=== PATIENT | male | born 1985 | race Caucasian/White ===

== ENCOUNTER 2018-03-31 09:39 | Emergency (ER) | payer OTHER ==
[2018-03-31 10:49] LABS: Bicarbonate 27 mEq/L (21-31); Glucose Level 92 mg/dL (65-120); Potassium 4.2 mEq/L (3.6-5.0); Sodium Level 137 mEq/L (135-145)
[2018-03-31 10:53] LABS: Absolute Lymphocytes (CBC) 2.1 K/uL (0.7-4.9); Absolute Monocytes 0.6 K/uL (0.1-1.3); Absolute Neutrophil 5.4 K/uL (1.8-8.0); Basophils % 0.3 % (0-1.3); Eosinophils % 3.1 % (0-4.4); Hematocrit 44.8 % (39.6-49.0); Lymphocytes % 24.6 % (15.3-44.8); MCH 29.3 pg (27.0-35.0); MCV 85.6 fL (80-100); MPV 8.3 fL (7.6-11.3); Monocytes % 7.6 % (3.3-12.3); RBC Red Blood Cell Count 5.23 M/uL (4.33-5.43)
[2018-03-31 10:58] LABS: BUN Blood Urea Nitrogen 6 mg/dL (6-20); Uric Acid 7.7 mg/dL (4.8-8.7)
[2018-03-31 11:04] LABS: C-Reactive Protein < 5.0 mg/L (<10.0)
--- NOTE | 2018-03-31 11:16 | RAD REPORT ---
EXAM DESCRIPTION: RAD - Knee Left 3 View - 03/31/2018 10:54 am CLINICAL HISTORY: Left knee pain COMPARISON: None. FINDINGS: No fracture, dislocation or periosteal reaction.A small joint effusion is likely present. No joint space narrowing. No soft tissue abnormality. Clinical concerns for internal derangement or occult bony injury could be further assessed with MR im aging. IMPRESSION: Small joint effusion suspected.
--- NOTE | 2018-03-31 11:25 | ER ---
Nurse's Notes [facility] Name: Zuhair Hawthorne Age: 33 yrs Sex: Male : 1985 Arrival Date: 03/31/2018 Time: 09:43 Bed 10 Private MD: None, None Diagnosis: Pain in left knee Presentation: 03/31 10:08 Presenting complaint: Patient states: has had left knee pain X 2.5 weeks, denies iw injury, states it feels swollen, has hx of torn ligament in that knee, pain is throbbing. Transition of care: patient was not received from another setting of care. Onset of symptoms was March 26, 2018. Risk Assessment: Do you want to hurt yourself or someone else? Patient reports no desire to harm self or others. Initial Sepsis Screen: Does the patient meet any 2 criteria? No. Patient's initial sepsis screen is negative. Does the patient have a suspected source of infection? No. Patient's initial sepsis screen is negative. Care prior to arrival: None. 10:08 Method Of Arrival: Ambulatory iw 10:08 Acuity: BRIE 4 iw Triage Assessment: 11:39 General: Appears in no apparent distress. Behavior is calm, cooperative. iw Historical: - Allergies: 10:11 Codeine; iw - Home Meds: 10:11 carvedilol 6.25 mg oral tab [Active]; pravastatin oral oral [Active]; Omeprazole Oral iw [Active]; - PMHx: 10:11 Hypertension; Hyperlipidemia; iw - PSHx: 10:11 Vasectomy; iw - Immunization history:: Adult Immunizations up to date. - Social history:: Smoking status: Patient uses tobacco products, smokes one-half pack cigarettes per day. - Ebola Screening: : Patient negative for fever greater than or equal to 101.5 degrees Fahrenheit, and additional compatible Ebola Virus Disease symptoms Patient denies exposure to infectious person Patient denies travel to an Ebola-affected area in the 21 days before illness onset No symptoms or risks identified at this time. Screenin:30 Abuse screen: Denies threats or abuse. Denies injuries from another. Nutritional iw screening: No deficits noted. Tuberculosis screening: No symptoms or risk factors identified. Fall Risk None identified. Assessment: 10:15 General: Appears in no apparent distress. Behavior is calm, cooperative. Pain: iw Complains of pain in left knee Pain currently is 8 out of 10 on a pain scale. Neuro: Level of Consciousness is awake, alert, obeys commands, Oriented to person, place, time, situation, Moves all extremities. Cardiovascular: Patient's skin is warm and dry. Respiratory: Respiratory effort is even, unlabored, Respiratory pattern is regular, symmetrical. GI: No deficits noted. No signs and/or symptoms were reported involving the gastrointestinal system. Derm: Skin is pink, warm \T\ dry. normal. Musculoskeletal: Range of motion: limited in left knee. Vital Signs: 10:11 BP 122 / 81; Pulse 80; Resp 18; Temp 98.3; Pulse Ox 98% on R/A; Weight 90.72 kg; Height iw 5 ft. 10 in. (177.80 cm); Pain 5/10; 10:11 Body Mass Index 28.70 (90.72 kg, 177.80 cm) iw ED Course: 09:43 Patient arrived in ED. mr 09:43 None, None is Private Physician. mr 09:48 Lorri Stone FNP-C is [facility]. kb 09:48 Yossi Ojeda MD is Attending Physician. kb 10:02 Mai Irene, RN is Primary Nurse. iw 10:10 Triage completed. iw 10:11 Arm band placed on. iw 10:15 Patient has correct armband on for positive identification. iw 10:31 Initial lab(s) drawn, by me, sent to lab. Inserted saline lock: 20 gauge in right iw antecubital area, using aseptic technique. Blood collected. 10:50 X-ray completed. Portable x-ray completed in exam room. Patient tolerated procedure ml well. 10:52 Knee Left 3 View XRAY In Process Unspecified. EDMS 11:39 No provider procedures requiring assistance completed. Patient did not have IV access iw during this emergency room visit. Administered Medications: No medications were administered Outcome: 11:25 Discharge ordered by . kb 11:39 Discharged to home ambulatory. iw 11:39 Condition: good 11:39 Discharge instructions given to patient, Instructed on discharge instructions, follow up and referral plans. Demonstrated understanding of instructions, follow-up care. 11:40 Patient left the ED. iw Signatures: Dispatcher [employer] EDMS Lorri Stone FNP-C FNP-So [place] mr Mai Irene, RN RN iw Pedro Luis, Ana ml
--- NOTE | 2018-03-31 11:26 | EDPHYS ---
Physician Documentation [facility] Name: Zuhair Hawthorne Age: 33 yrs Sex: Male : 1985 Arrival Date: 03/31/2018 Time: 09:43 Bed 10 Private MD: None, None ED Physician Yossi Ojeda HPI: 03/31 11:21 This 33 yrs old Male presents to ER via Ambulatory with complaints of Knee kb Pain. 11:21 The patient presents with pain, swelling, tenderness. The complaints affect the left kb knee. Context: The problem was sustained at home, resulted from an unknown cause, the patient can fully bear weight, the patient is able to ambulate, Problem is a result from a previous injury: Yes. Onset: The symptoms/episode began/occurred 2.5 week(s) ago. Modifying factors: The symptoms are alleviated by nothing. the symptoms are aggravated by nothing. Associated signs and symptoms: Pertinent positives: swelling, Pertinent negatives calf tenderness, fever, nausea, numbness, rash, tingling, vomiting, warmth, weakness. Treatment prior to arrival includes: no previous treatment. Severity of symptoms: At their worst the symptoms were mild, in the emergency department the symptoms are unchanged. The patient has not experienced similar symptoms in the past. The patient has not recently seen a physician. Pt states he has had left knee pain for 2.5 weeks. Cannot remember injuring knee. States he thought it was a ligament, but now he is unsure because he looked on google and thinks it could be infected. Came to make sure he didn't have an infected joint. Historical: - Allergies: 10:11 Codeine; iw - Home Meds: 10:11 carvedilol 6.25 mg oral tab [Active]; pravastatin oral oral [Active]; Omeprazole Oral iw [Active]; - PMHx: 10:11 Hypertension; Hyperlipidemia; iw - PSHx: 10:11 Vasectomy; iw - Immunization history:: Adult Immunizations up to date. - Social history:: Smoking status: Patient uses tobacco products, smokes one-half pack cigarettes per day. - Ebola Screening: : Patient negative for fever greater than or equal to 101.5 degrees Fahrenheit, and additional compatible Ebola Virus Disease symptoms Patient denies exposure to infectious person Patient denies travel to an Ebola-affected area in the 21 days before illness onset No symptoms or risks identified at this time. ROS: 11:20 Constitutional: Negative for fever, chills, and weight loss, Cardiovascular: Negative kb for chest pain, palpitations, and edema, Respiratory: Negative for shortness of breath, cough, wheezing, and pleuritic chest pain, Abdomen/GI: Negative for abdominal pain, nausea, vomiting, diarrhea, and constipation, Skin: Negative for injury, rash, and discoloration, Neuro: Negative for headache, weakness, numbness, tingling, and seizure. 11:20 MS/extremity: Positive for pain, swelling, tenderness, of the left knee. Exam: 11:20 Constitutional: This is a well developed, well nourished patient who is awake, alert, kb and in no acute distress. Head/Face: Normocephalic, atraumatic. Chest/axilla: Normal chest wall appearance and motion. Nontender with no deformity. No lesions are appreciated. Cardiovascular: Regular rate and rhythm with a normal S1 and S2. No gallops, murmurs, or rubs. Normal PMI, no JVD. No pulse deficits. Respiratory: Lungs have equal breath sounds bilaterally, clear to auscultation and percussion. No rales, rhonchi or wheezes noted. No increased work of breathing, no retractions or nasal flaring. Abdomen/GI: Soft, non-tender, with normal bowel sounds. No distension or tympany. No guarding or rebound. No evidence of tenderness throughout. Skin: Warm, dry with normal turgor. Normal color with no rashes, no lesions, and no evidence of cellulitis. Neuro: Awake and alert, GCS 15, oriented to person, place, time, and situation. Cranial nerves II-XII grossly intact. Motor strength 5/5 in all extremities. Sensory grossly intact. Cerebellar exam normal. Normal gait. 11:20 Musculoskeletal/extremity: Extremities: grossly normal except: noted in the left knee: pain, swelling, tenderness, ROM: intact in all extremities, Circulation is intact in all extremities. Sensation intact. Weight bearing: able to fully bear weight. Vital Signs: 10:11 BP 122 / 81; Pulse 80; Resp 18; Temp 98.3; Pulse Ox 98% on R/A; Weight 90.72 kg; Height iw 5 ft. 10 in. (177.80 cm); Pain 5/10; 10:11 Body Mass Index 28.70 (90.72 kg, 177.80 cm) iw MDM: 10:02 Patient medically screened. kb 11:20 Data reviewed: vital signs, nurses notes. Data interpreted: Pulse oximetry: on room air kb is 98 %. Interpretation: normal. Counseling: I had a detailed discussion with the patient and/or guardian regarding: the historical points, exam findings, and any diagnostic results supporting the discharge/admit diagnosis, lab results, radiology results, the need for outpatient follow up, a orthopedic surgeon, to return to the emergency department if symptoms worsen or persist or if there are any questions or concerns that arise at home. 03/31 10:15 Order name: CBC with Diff; Complete Time: 11:07 kb 03/31 10:15 Order name: Basic Metabolic Panel; Complete Time: 11:04 kb 03/31 10:15 Order name: Knee Left 3 View XRAY; Complete Time: 11:17 kb 03/31 10:15 Order name: CRP; Complete Time: 11:04 kb 03/31 10:15 Order name: ESR; Complete Time: 11:07 kb 03/31 10:15 Order name: Uric Acid; Complete Time: 11:04 kb 03/31 10:15 Order name: IV Start; Complete Time: 10:31 kb Administered Medications: No medications were administered Disposition: 03/31/18 11:25 Discharged to Home. Impression: Pain in left knee. - Condition is Stable. - Discharge Instructions: Knee Effusion, [id number], Knee Pain, [id number]. - Medication Reconciliation Form, Thank You Letter, Antibiotic Education, Prescription Opioid Use form. - Follow up: Emergency Department; When: As needed; Reason: Worsening of condition. Follow up: Private Physician; When: 2 - 3 days; Reason: Recheck today's complaints, Continuance of care, Re-evaluation by your physician. Addendum: 04/04/2018 08:45 Co-signature as Attending Physician, Yossi Ojeda MD I agree with the assessment and c goodman plan of care. Signatures: Dispatcher [employer] Lorri Capellan, BUCKY-Jailyn LAWLER-Yossi Alfonso MD MD cha Williams, Irene, RN RN iw Corrections: (The following items were deleted from the chart) 05/25 11:40 11:25 03/31/2018 11:25 Discharged to Home. Impression: Pain in left knee. Condition is iw Stable. Forms are Medication Reconciliation Form, Thank You Letter, Antibiotic Education, Prescription Opioid Use. Follow up: Emergency Department; When: As needed; Reason: Worsening of condition. Follow up: Private Physician; When: 2 - 3 days; Reason: Recheck today's complaints, Continuance of care, Re-evaluation by your physician. kb
[2018-03-31 11:48] VITALS: BP 122/81; TEMP 98.3; O2SAT 98
== END 2018-03-31 11:40 | disposition home or self-care (01) ==
LOC: ER 09:39
DX: M25.562 Pain in left knee (principal); F17.210 Nicotine dependence, cigarettes, uncomplicated; I10 Essential (primary) hypertension; E78.5 Hyperlipidemia, unspecified; Z88.5 Allergy status to narcotic agent
CPT/HCPCS: 36415; 80048; 84550; 85025; 85652; 86140; 99283

== ENCOUNTER 2018-04-28 17:35 | Emergency (ER) | payer OTHER ==
[2018-04-28] MEDS ORDERED: METOCLOPRAMIDE 10 MG/2mL INJ ONE (19:10)
[2018-04-28] MEDS ORDERED: DEXAMETHASONE 10 MG/ML VIAL ONE (19:10)
[2018-04-28] MEDS ORDERED: DIPHENHYDRAMINE 50 MG/ML VIAL ONE (19:11)
--- NOTE | 2018-04-28 19:37 | RAD REPORT ---
EXAM DESCRIPTION: CT - Head Brain Wo Cont - 04/28/2018 7:30 pm CLINICAL HISTORY: Pain;Mental status change Severe headache. COMPARISON: HEAD BRAIN W O CONTRAST dated 06/03/2010 TECHNIQUE: All CT scans are performed using dose optimization technique as appropriate and may inclu de automated exposure control or mA/KV adjustment according to patient size. FINDINGS: No intracranial hemorrhage, hydrocephalus or extra-axial fluid collection.No areas of brai n edema or evidence of midline shift. The paranasal sinuses and mastoids are clear. The calvarium is intact. IMPRESSION: No acute intracranial abnormality.
[2018-04-28 19:43] LABS: Absolute Lymphocytes (CBC) 3.4 K/uL (0.7-4.9); Absolute Monocytes 0.9 K/uL (0.1-1.3); Absolute Neutrophil 5.5 K/uL (1.8-8.0); Basophils % 0.3 % (0-1.3); Hematocrit 44.9 % (39.6-49.0); Lymphocytes % 32.9 % (15.3-44.8); MCH 29.8 pg (27.0-35.0); MCV 85.3 fL (80-100); Monocytes % 8.7 % (3.3-12.3); RBC Red Blood Cell Count 5.26 M/uL (4.33-5.43)
[2018-04-28 19:57] LABS: BUN Blood Urea Nitrogen 9 mg/dL (7-18); Bicarbonate 31 mmol/L (21-32); Glucose Level 82 mg/dL (74-106); Potassium 3.8 mmol/L (3.5-5.1); Sodium Level 138 mmol/L (136-145)
--- NOTE | 2018-04-28 20:11 | EDPHYS ---
Physician Documentation [facility] Name: Zuhair Hawthorne Age: 33 yrs Sex: Male : 1985 Arrival Date: 04/28/2018 Time: 17:37 Bed 8 Private MD: Salina Noriega ED Physician Michael Angeles HPI: 04/28 21:04 This 33 yrs old Male presents to ER via Ambulatory with complaints of jr8 Headache. 21:04 The patient complains of pain to the left pentecostal. The patient describes the headache as jr8 throbbing. Onset: The symptoms/episode began/occurred acutely, today. Associated signs and symptoms: Pertinent positives: Photophobia blurred vision. Severity of symptoms: At its worst the pain was moderate, in the emergency department the pain is unchanged. Headache History: The patient has had previous headaches and this one is different than previous episodes. The symptoms are alleviated by nothing. the symptoms are aggravated by lights. The patient has not experienced similar symptoms in the past. The patient has not recently seen a physician. Historical: - Allergies: 18:01 Codeine; iw - Home Meds: 18:01 carvedilol 6.25 mg Oral Tb24 [Active]; Omeprazole Oral [Active]; pravastatin Oral iw [Active]; - PMHx: 18:01 Hyperlipidemia; Hypertension; iw 18:02 Migraines; iw - PSHx: 18:01 Vasectomy; iw - Immunization history:: Adult Immunizations up to date. - Social history:: Smoking status: Patient uses tobacco products, smokes one-half pack cigarettes per day. - Ebola Screening: : No symptoms or risks identified at this time. ROS: 21:04 Eyes: Negative for injury, pain, redness, and discharge, ENT: Negative for injury, jr8 pain, and discharge, Neck: Negative for injury, pain, and swelling, Cardiovascular: Negative for chest pain, palpitations, and edema, Respiratory: Negative for shortness of breath, cough, wheezing, and pleuritic chest pain, Abdomen/GI: Negative for abdominal pain, nausea, vomiting, diarrhea, and constipation, Back: Negative for injury and pain, MS/Extremity: Negative for injury and deformity, Skin: Negative for injury, rash, and discoloration. 21:04 Neuro: Positive for headache, Negative for altered mental status, dizziness, gait disturbance, hearing loss, loss of consciousness, numbness, seizure activity, speech changes, syncope, near syncope, tingling, tinnitus, tremor, visual changes, weakness. Exam: 21:04 Head/Face: Normocephalic, atraumatic. Eyes: Pupils equal round and reactive to light, jr8 extra-ocular motions intact. Lids and lashes normal. Conjunctiva and sclera are non-icteric and not injected. Cornea within normal limits. Periorbital areas with no swelling, redness, or edema. ENT: Nares patent. No nasal discharge, no septal abnormalities noted. Tympanic membranes are normal and external auditory canals are clear. Oropharynx with no redness, swelling, or masses, exudates, or evidence of obstruction, uvula midline. Mucous membranes moist. Neck: Trachea midline, no thyromegaly or masses palpated, and no cervical lymphadenopathy. Supple, full range of motion without nuchal rigidity, or vertebral point tenderness. No Meningismus. Cardiovascular: Regular rate and rhythm with a normal S1 and S2. No gallops, murmurs, or rubs. Normal PMI, no JVD. No pulse deficits. Respiratory: Lungs have equal breath sounds bilaterally, clear to auscultation and percussion. No rales, rhonchi or wheezes noted. No increased work of breathing, no retractions or nasal flaring. Abdomen/GI: Soft, non-tender, with normal bowel sounds. No distension or tympany. No guarding or rebound. No evidence of tenderness throughout. Back: No spinal tenderness. No costovertebral tenderness. Full range of motion. Skin: Warm, dry with normal turgor. Normal color with no rashes, no lesions, and no evidence of cellulitis. MS/ Extremity: Pulses equal, no cyanosis. Neurovascular intact. Full, normal range of motion. Neuro: Awake and alert, GCS 15, oriented to person, place, time, and situation. Cranial nerves II-XII grossly intact. Motor strength 5/5 in all extremities. Sensory grossly intact. Cerebellar exam normal. Normal gait. Vital Signs: 18:01 BP 127 / 83; Pulse 82; Resp 18; Pulse Ox 99% ; Weight 86.18 kg; Height 5 ft. 10 in. iw (177.80 cm); Pain 6/10; 18:11 BP 123 / 93; Pulse 71; Resp 18; Pulse Ox 99% on R/A; hj 19:16 BP 123 / 86; Pulse 69; Resp 16; Pulse Ox 98% on R/A; rv 20:05 BP 110 / 77; Pulse 74; Resp 18; Pulse Ox 99% on R/A; mt 18:01 Body Mass Index 27.26 (86.18 kg, 177.80 cm) iw MDM: 18:34 Patient medically screened. jr8 20:08 Data reviewed: vital signs, nurses notes, lab test result(s), radiologic studies, CT jr8 scan, and as a result, I will discharge patient. Data interpreted: Pulse oximetry: on room air is 99 %. Interpretation: normal. Counseling: I had a detailed discussion with the patient and/or guardian regarding: the historical points, exam findings, and any diagnostic results supporting the discharge/admit diagnosis, lab results, radiology results, the need for outpatient follow up, a neurologist, to return to the emergency department if symptoms worsen or persist or if there are any questions or concerns that arise at home. Response to treatment: the patient's symptoms have markedly improved after treatment. 04/28 18:55 Order name: CBC with Diff; Complete Time: 20:06 jr8 04/28 18:55 Order name: Basic Metabolic Panel; Complete Time: 20: jr8 04/28 18:55 Order name: CT Head Brain wo Cont; Complete Time: 20: jr8 04/28 18:55 Order name: IV; Complete Time: 19:26 jr8 Administered Medications: 19:25 Drug: Reglan 10 mg Route: IVP; Site: right antecubital; rv 20:40 Follow up: Response: No adverse reaction rv 19:25 Drug: Benadryl 25 mg Route: IVP; Site: right antecubital; rv 20:40 Follow up: Response: No adverse reaction rv 19:25 Drug: Decadron - Dexamethasone 10 mg Route: IVP; Site: right antecubital; rv 20:40 Follow up: Response: No adverse reaction rv Disposition: 04/28/18 20:10 Discharged to Home. Impression: Migraine. - Condition is Stable. - Discharge Instructions: Migraine Headache. - Medication Reconciliation Form, Thank You Letter, Antibiotic Education, Prescription Opioid Use form. - Follow up: Ga Teague MD; When: 2 - 3 days; Reason: Recheck today's complaints, Continuance of care, Re-evaluation by your physician. - Problem is new. - Symptoms have improved. Addendum: 05/01/2018 19:38 Co-signature as Attending Physician, Michael Angeles MD. r n Signatures: Dispatcher [employer] Mai oHpkins RN RN iw Nieto, Roman, MD MD rn Roszak, Josh, JENNIFER RODRIGUEZ jr8 Shamar Bergman RN RN rv Corrections: (The following items were deleted from the chart) 04/28 20:40 20:10 04/28/2018 20:10 Discharged to Home. Impression: Migraine. Condition is Stable. rv Forms are Medication Reconciliation Form, Thank You Letter, Antibiotic Education, Prescription Opioid Use. Follow up: Ga Teague; When: 2 - 3 days; Reason: Recheck today's complaints, Continuance of care, Re-evaluation by your physician. Problem is new. Symptoms have improved. jr8
--- NOTE | 2018-04-28 20:11 | ER ---
Nurse's Notes [facility] Name: Zuhair Hawthorne Age: 33 yrs Sex: Male : 1985 Arrival Date: 04/28/2018 Time: 17:37 Bed 8 Private MD: Salina Noriega Diagnosis: Migraine Presentation: 04/28 17:59 Presenting complaint: Patient states: "ice pick headaches, they usually last a few iw seconds but this last one lasted 15-20 seconds." left temporal pain. When pain occurred pt reports speech slurred and was disoriented. Photosensitivity in left eye. Pt has a hx of migraines but states this is different. Transition of care: patient was not received from another setting of care. Onset of symptoms was April 28, 2018 at 16:00. Risk Assessment: Do you want to hurt yourself or someone else? Patient reports no desire to harm self or others. Care prior to arrival: None. 17:59 Method Of Arrival: Ambulatory iw 17:59 Acuity: BRIE 3 iw 18:05 Initial Sepsis Screen: Does the patient meet any 2 criteria? No. Patient's initial hj sepsis screen is negative. Does the patient have a suspected source of infection? No. Patient's initial sepsis screen is negative. Triage Assessment: 18:04 Headache History: Denies prior headaches. General: Appears in no apparent distress. hj uncomfortable, Behavior is calm, cooperative, appropriate for age. Pain: Complains of pain in L hindu Pain currently is 10 out of 10 on a pain scale. Pain began Also complains of nausea. EENT: No signs and/or symptoms were reported regarding the EENT system. Neuro: Level of Consciousness is awake, alert, obeys commands, Oriented to person, place, time, situation, Appropriate for age. Cardiovascular: Capillary refill < 3 seconds Patient's skin is warm and dry. Respiratory: Airway is patent Respiratory effort is even, unlabored, Respiratory pattern is regular, symmetrical. GI: No signs and/or symptoms were reported involving the gastrointestinal system. : No signs and/or symptoms were reported regarding the genitourinary system. Derm: No signs and/or symptoms reported regarding the dermatologic system. Musculoskeletal: No signs and/or symptoms reported regarding the musculoskeletal system. Historical: - Allergies: 18:01 Codeine; iw - Home Meds: 18:01 carvedilol 6.25 mg Oral Tb24 [Active]; Omeprazole Oral [Active]; pravastatin Oral iw [Active]; - PMHx: 18:01 Hyperlipidemia; Hypertension; iw 18:02 Migraines; iw - PSHx: 18:01 Vasectomy; iw - Immunization history:: Adult Immunizations up to date. - Social history:: Smoking status: Patient uses tobacco products, smokes one-half pack cigarettes per day. - Ebola Screening: : No symptoms or risks identified at this time. Screenin:03 Abuse screen: Denies threats or abuse. Denies injuries from another. Nutritional hj screening: No deficits noted. Tuberculosis screening: No symptoms or risk factors identified. Fall Risk None identified. Assessment: 18:05 Reassessment: see triage assessment;. hj 19:15 Reassessment: received patient from [facility]. patient is currently in the restroom. rv still for CT scan. 19:26 Reassessment: patient taken to ct scan. rv 19:40 Reassessment: patient came back from ct scan. awaiting result. rv Vital Signs: 18:01 BP 127 / 83; Pulse 82; Resp 18; Pulse Ox 99% ; Weight 86.18 kg; Height 5 ft. 10 in. iw (177.80 cm); Pain 6/10; 18:11 BP 123 / 93; Pulse 71; Resp 18; Pulse Ox 99% on R/A; hj 19:16 BP 123 / 86; Pulse 69; Resp 16; Pulse Ox 98% on R/A; rv 20:05 BP 110 / 77; Pulse 74; Resp 18; Pulse Ox 99% on R/A; mt 18:01 Body Mass Index 27.26 (86.18 kg, 177.80 cm) ED Course: 17:37 Patient arrived in ED. mr 17:38 Salina Noriega is Private Physician. mr 18:00 Triage completed. iw 18:01 Arm band placed on left wrist. iw 18:03 Meng Bartholomew, RN is Primary Nurse. hj 18:05 Patient has correct armband on for positive identification. Bed in low position. Call hj light in reach. Side rails up X 1. Adult w/ patient. 18:34 Dionicio Desouza PA is PHCP. jr8 18:34 Michael Angeles MD is Attending Physician. jr8 19:26 Inserted saline lock: 20 gauge in right antecubital area, using aseptic technique. rv 19:30 CT Head Brain wo Cont In Process Unspecified. EDMS 20:10 Ga Teague MD is Referral Physician. jr8 20:38 No provider procedures requiring assistance completed. IV discontinued. aa1 Administered Medications: 19:25 Drug: Reglan 10 mg Route: IVP; Site: right antecubital; rv 20:40 Follow up: Response: No adverse reaction rv 19:25 Drug: Benadryl 25 mg Route: IVP; Site: right antecubital; rv 20:40 Follow up: Response: No adverse reaction rv 19:25 Drug: Decadron - Dexamethasone 10 mg Route: IVP; Site: right antecubital; rv 20:40 Follow up: Response: No adverse reaction rv Outcome: 20:10 Discharge ordered by MD. jr8 20:39 Discharged to home ambulatory. aa1 20:39 Condition: improved 20:39 Discharge instructions given to patient, Instructed on discharge instructions, medication usage. 20:40 Patient left the ED. rv Signatures: Dispatcher [employer] EDMS Sharlene Forte, RN RN aa1 So Glass Irene, RN RN iw Dionicio Desouza PA PA jr8 Meng Bartholomew, Sydnie Gonzalez RN, mt, Ronaldo, RN RN rv Corrections: (The following items were deleted from the chart) 18:02 17:59 Presenting complaint: Patient states: "ice pick headaches, they usually last a iw few seconds but this last one lasted 15-20 seconds." left temporal pain. When pain occurred pt reports speech slurred and was disoriented. iw
[2018-04-28 22:15] VITALS: BP 110/77; O2SAT 99
== END 2018-04-28 20:40 | disposition home or self-care (01) ==
LOC: ER 17:35
DX: G43.909 Migraine, unspecified, not intractable, without status migrainosus (principal); F17.210 Nicotine dependence, cigarettes, uncomplicated; I10 Essential (primary) hypertension; E78.5 Hyperlipidemia, unspecified; Z88.5 Allergy status to narcotic agent
CPT/HCPCS: 36415; 70450; 80048; 85025; 96374; 96375; 99284; J1100; J2765

== ENCOUNTER 2019-06-16 13:23 | Emergency (ER) | payer OTHER ==
[2019-06-16] MEDS ORDERED: METOCLOPRAMIDE 10 MG/2mL INJ ONE (14:07)
[2019-06-16] MEDS ORDERED: KETOROLAC 30 MG/ML INJ ONE (14:07)
[2019-06-16] MEDS ORDERED: NA CHLORIDE 0.9% 1,000 ML ONE (14:07)
[2019-06-16 14:34] LABS: Absolute Lymphocytes (CBC) 1.8 K/uL (0.7-4.9); Basophils % 0.4 % (0-1.3); Hematocrit 43.9 % (39.6-49.0); Lymphocytes % 19.4 % (15.3-44.8); MPV 7.9 fL (7.6-11.3); RBC Red Blood Cell Count 5.01 M/uL (4.33-5.43)
[2019-06-16 14:53] LABS: Thyroid Stimulating Hormone 0.835 uIU/mL (0.360-3.740)
--- NOTE | 2019-06-16 15:06 | RAD REPORT ---
EXAM DESCRIPTION: CT - Head Brain Wo Cont - 06/16/2019 2:45 pm CLINICAL HISTORY: HEADACHE Headache, nausea and vomiting COMPARISON: <Comparisons> TECHNIQUE: All CT scans are performed using dose optimization technique as appropriate and may inclu de automated exposure control or mA/KV adjustment according to patient size. FINDINGS: No intracranial hemorrhage, hydrocephalus or extra-axial fluid collection.No areas of brai n edema or evidence of midline shift. The paranasal sinuses and mastoids are clear. The calvarium is intact. IMPRESSION: No acute intracranial abnormality.
--- NOTE | 2019-06-16 15:21 | ER ---
Nurse's Notes [facility] Name: Zuhair Hawthorne Age: 34 yrs Sex: Male : 1985 Arrival Date: 06/16/2019 Time: 13:25 Bed 18 Private MD: Diagnosis: Migraine Presentation: 06/16 13:39 Presenting complaint: Patient states: Migraine for two days, similar to previous denies la1 vomiting. Reports fatigue for the last 2 months. Transition of care: patient was not received from another setting of care. Onset of symptoms was June 16, 2019. Risk Assessment: Do you want to hurt yourself or someone else? Patient reports no desire to harm self or others. Initial Sepsis Screen: Does the patient meet any 2 criteria? No. Patient's initial sepsis screen is negative. Does the patient have a suspected source of infection? No. Patient's initial sepsis screen is negative. Care prior to arrival: None. 13:39 Method Of Arrival: Ambulatory la1 13:39 Acuity: BRIE 3 la1 Historical: - Allergies: 13:39 Codeine; la1 - PMHx: 13:39 Hyperlipidemia; Hypertension; Migraines; la1 - Immunization history:: Adult Immunizations up to date. - Social history:: Smoking status: Patient/guardian denies using tobacco. - Ebola Screening: : No symptoms or risks identified at this time. Screenin:10 Abuse screen: Denies threats or abuse. Nutritional screening: No deficits noted. em Tuberculosis screening: No symptoms or risk factors identified. Fall Risk None identified. Assessment: 14:10 General: Appears in no apparent distress. comfortable, Behavior is calm, cooperative, em Denies fever. Pain: Complains of pain in left mu-ism Pain currently is 8 out of 10 on a pain scale. Pain began 1 day ago. Neuro: Level of Consciousness is awake, alert, obeys commands, Oriented to person, place, time, situation, Reports headache weakness since 1 week Denies weakness. Cardiovascular: Capillary refill < 3 seconds Patient's skin is warm and dry. Respiratory: Airway is patent Respiratory effort is even, unlabored, Respiratory pattern is regular, symmetrical. GI: Abdomen is flat, Patient currently denies nausea, vomiting. Derm: Skin is intact, is healthy with good turgor, Skin is pink, warm \T\ dry. Musculoskeletal: Capillary refill < 3 seconds, Range of motion: intact in all extremities. 14:48 Reassessment: Patient appears in no apparent distress at this time. Patient and/or em family updated on plan of care and expected duration. Pain level reassessed. Patient is alert, oriented x 3, equal unlabored respirations, skin warm/dry/pink. Patient states feeling better. 15:34 Reassessment: Patient appears in no apparent distress at this time. Patient and/or em family updated on plan of care and expected duration. Pain level reassessed. Patient is alert, oriented x 3, equal unlabored respirations, skin warm/dry/pink. Patient denies pain at this time. Patient states feeling better. Patient states symptoms have improved. Vital Signs: 13:39 BP 108 / 71; Pulse 103; Resp 16; Temp 97.5; Pulse Ox 98% on R/A; Weight 90.72 kg; la1 Height 5 ft. 10 in. (177.80 cm); 14:47 BP 129 / 83 LA Sitting (/reg); Pulse 104 LA; Resp 16; Pulse Ox 97% ; Pain 2/10; tt1 15:34 BP 106 / 76; Pulse 89; Resp 18; Pulse Ox 99% on R/A; Pain 0/10; em 13:39 Body Mass Index 28.70 (90.72 kg, 177.80 cm) la1 [place] Coma Score: 15:07 Eye Response: spontaneous(4). Verbal Response: oriented(5). Motor Response: obeys kb commands(6). Total: 15. ED Course: 13:25 Patient arrived in ED. as 13:39 Arm band placed on left wrist. la1 13:40 Triage completed. la1 13:42 Lorri Stone FNP-C [facility]. kb 13:42 Yossi Ojeda MD is Attending Physician. kb 14:01 Cirilo Nicolas LVN is Primary Nurse. em 14:10 Patient has correct armband on for positive identification. Placed in gown. Bed in low em position. Call light in reach. Side rails up X2. Pulse ox on. NIBP on. 14:10 Initial lab(s) drawn, by me, sent to lab. Inserted saline lock: 20 gauge in right em antecubital area, using aseptic technique. Blood collected. 14:45 CT completed. Patient tolerated procedure well. Patient moved back from CT. mw3 14:47 CT Head Brain wo Cont In Process Unspecified. EDMS 15:32 No provider procedures requiring assistance completed. IV discontinued, intact, em bleeding controlled, No redness/swelling at site. Pressure dressing applied. Administered Medications: 14:18 Drug: NS 0.9% 1000 ml Route: IV; Rate: 1000 ml; Site: right antecubital; em 15:00 Follow up: IV Status: Completed infusion; IV Intake: 1000ml em 14:18 Drug: TORadol - Ketorolac 15 mg Route: IVP; Site: right antecubital; iw 15:00 Follow up: Response: No adverse reaction; Pain is decreased em 14:18 Drug: Reglan 10 mg Route: IVP; Site: right antecubital; iw 15:00 Follow up: Response: No adverse reaction; Pain is decreased em Intake: 15:00 IV: 1000ml; Total: 1000ml. em Outcome: 15:20 Discharge ordered by . kb 15:32 Discharged to home ambulatory. em 15:32 Condition: good 15:32 Discharge instructions given to patient, Instructed on discharge instructions, follow up and referral plans. Demonstrated understanding of instructions, follow-up care. 15:34 Patient left the ED. em Signatures: Dispatcher [employer] EDMS Lorri Stone, ORACLE APPLICATIONS ANALYST-C ORACLE APPLICATIONS ANALYST-CkCirilo Adams, MACHINE MOLDER SQUEEZE MACHINE MOLDER SQUEEZE em Mellisa Peirce Irene, RN RN iw Brendon Retana RN RN la1 Jeniffer Norris tt1 Elizabeth Scruggs mw3 Corrections: (The following items were deleted from the chart) 13:40 13:39 Presenting complaint: Patient states: Migraine for two days, similar to previous la1 denies vomiting. la1 19:20 19:20 IV Status: Completed infusion; IV Intake: 1000ml em em
--- NOTE | 2019-06-16 15:22 | EDPHYS ---
Physician Documentation [facility] Name: Zuhair Hawthorne Age: 34 yrs Sex: Male : 1985 Arrival Date: 06/16/2019 Time: 13:25 Bed 18 Private MD: ED Physician Yossi Ojeda HPI: 06/16 15:17 This 34 yrs old Male presents to ER via Ambulatory with complaints of kb Headache > 24hrs Old. 15:17 The patient complains of pain to the left jainism. The patient describes the headache as kb throbbing. Onset: The symptoms/episode began/occurred 2 day(s) ago. Associated signs and symptoms: Pertinent positives: fatigue. Severity of symptoms: At its worst the pain was moderate, in the emergency department the pain is unchanged. Headache History: The patient has had previous headaches and this one is similar to previous episodes. The symptoms are alleviated by nothing. the symptoms are aggravated by lights. The patient has experienced similar episodes in the past. The patient has not recently seen a physician. Pt reports migraine that started a couple of days ago that is more localized to the left jainism area. "I came to get a scan just to make sure everything is ok. I have also had fatigue for the last month so I want some levels checked while I'm here.". Historical: - Allergies: 13:39 Codeine; la1 - PMHx: 13:39 Hyperlipidemia; Hypertension; Migraines; la1 - Immunization history:: Adult Immunizations up to date. - Social history:: Smoking status: Patient/guardian denies using tobacco. - Ebola Screening: : No symptoms or risks identified at this time. ROS: 15:16 Eyes: Negative for injury, pain, redness, and discharge, ENT: Negative for injury, kb pain, and discharge, Neck: Negative for injury, pain, and swelling, Cardiovascular: Negative for chest pain, palpitations, and edema, Respiratory: Negative for shortness of breath, cough, wheezing, and pleuritic chest pain, Abdomen/GI: Negative for abdominal pain, nausea, vomiting, diarrhea, and constipation, Back: Negative for injury and pain, : Negative for injury, bleeding, discharge, and swelling, MS/Extremity: Negative for injury and deformity, Skin: Negative for injury, rash, and discoloration. 15:16 Constitutional: Positive for fatigue. 15:16 Neuro: Positive for headache. Exam: 15:17 Constitutional: This is a well developed, well nourished patient who is awake, alert, kb and in no acute distress. Head/Face: Normocephalic, atraumatic. Eyes: Pupils equal round and reactive to light, extra-ocular motions intact. Lids and lashes normal. Conjunctiva and sclera are non-icteric and not injected. Cornea within normal limits. Periorbital areas with no swelling, redness, or edema. ENT: Nares patent. No nasal discharge, no septal abnormalities noted. Tympanic membranes are normal and external auditory canals are clear. Oropharynx with no redness, swelling, or masses, exudates, or evidence of obstruction, uvula midline. Mucous membranes moist. Neck: Trachea midline, no thyromegaly or masses palpated, and no cervical lymphadenopathy. Supple, full range of motion without nuchal rigidity, or vertebral point tenderness. No Meningismus. Chest/axilla: Normal chest wall appearance and motion. Nontender with no deformity. No lesions are appreciated. Cardiovascular: Regular rate and rhythm with a normal S1 and S2. No gallops, murmurs, or rubs. Normal PMI, no JVD. No pulse deficits. Respiratory: Lungs have equal breath sounds bilaterally, clear to auscultation and percussion. No rales, rhonchi or wheezes noted. No increased work of breathing, no retractions or nasal flaring. Abdomen/GI: Soft, non-tender, with normal bowel sounds. No distension or tympany. No guarding or rebound. No evidence of tenderness throughout. Skin: Warm, dry with normal turgor. Normal color with no rashes, no lesions, and no evidence of cellulitis. MS/ Extremity: Pulses equal, no cyanosis. Neurovascular intact. Full, normal range of motion. Neuro: Awake and alert, GCS 15, oriented to person, place, time, and situation. Cranial nerves II-XII grossly intact. Motor strength 5/5 in all extremities. Sensory grossly intact. Cerebellar exam normal. Normal gait. Vital Signs: 13:39 BP 108 / 71; Pulse 103; Resp 16; Temp 97.5; Pulse Ox 98% on R/A; Weight 90.72 kg; la1 Height 5 ft. 10 in. (177.80 cm); 14:47 BP 129 / 83 LA Sitting (/reg); Pulse 104 LA; Resp 16; Pulse Ox 97% ; Pain 2/10; tt1 15:34 BP 106 / 76; Pulse 89; Resp 18; Pulse Ox 99% on R/A; Pain 0/10; em 13:39 Body Mass Index 28.70 (90.72 kg, 177.80 cm) la1 [place] Coma Score: 15:07 Eye Response: spontaneous(4). Verbal Response: oriented(5). Motor Response: obeys kb commands(6). Total: 15. MDM: 13:42 Patient medically screened. kb 15:07 Data reviewed: vital signs, nurses notes. Data interpreted: Pulse oximetry: on room air kb is 97 %. Interpretation: normal. Counseling: I had a detailed discussion with the patient and/or guardian regarding: the historical points, exam findings, and any diagnostic results supporting the discharge/admit diagnosis, lab results, radiology results, the need for outpatient follow up, a family practitioner, to return to the emergency department if symptoms worsen or persist or if there are any questions or concerns that arise at home. 15:20 Response to treatment: the patient's symptoms have resolved after treatment. kb 06/16 14:00 Order name: CBC with Diff; Complete Time: 14:42 kb 06/16 14:00 Order name: Basic Metabolic Panel; Complete Time: 14:53 kb 06/16 14:00 Order name: TSH; Complete Time: 14:53 kb 06/16 14:00 Order name: CT Head Brain wo Cont; Complete Time: 15:07 kb 06/16 14:00 Order name: IV Start; Complete Time: 14:28 kb Administered Medications: 14:18 Drug: NS 0.9% 1000 ml Route: IV; Rate: 1000 ml; Site: right antecubital; em 15:00 Follow up: IV Status: Completed infusion; IV Intake: 1000ml em 14:18 Drug: TORadol - Ketorolac 15 mg Route: IVP; Site: right antecubital; iw 15:00 Follow up: Response: No adverse reaction; Pain is decreased em 14:18 Drug: Reglan 10 mg Route: IVP; Site: right antecubital; iw 15:00 Follow up: Response: No adverse reaction; Pain is decreased em Disposition: 06/16/19 15:20 Discharged to Home. Impression: Migraine. - Condition is Stable. - Discharge Instructions: Migraine Headache, [id number]. - Medication Reconciliation Form, Thank You Letter, Antibiotic Education, Prescription Opioid Use form. - Follow up: Emergency Department; When: As needed; Reason: Worsening of condition. Follow up: Private Physician; When: 2 - 3 days; Reason: Recheck today's complaints, Continuance of care, Re-evaluation by your physician. Addendum: 06/18/2019 09:31 Co-signature as Attending Physician, Yossi Ojeda MD I agree with the assessment and c goodman plan of care. Signatures: Dispatcher [employer] EDMS Lorri Stone, SENIOR COPYWRITER-C SENIOR COPYWRITER-Dmitrib Yossi Ojeda MD MD cha Munoz, Edgar, INFANTRY UNIT LEADER INFANTRY UNIT LEADER em Mai Irene, LEVI RN iw Brendon Retana RN RN la1 Corrections: (The following items were deleted from the chart) 06/16 15:34 15:20 06/16/2019 15:20 Discharged to Home. Impression: Migraine. Condition is Stable. em Forms are Medication Reconciliation Form, Thank You Letter, Antibiotic Education, Prescription Opioid Use. Follow up: Emergency Department; When: As needed; Reason: Worsening of condition. Follow up: Private Physician; When: 2 - 3 days; Reason: Recheck today's complaints, Continuance of care, Re-evaluation by your physician. kb
[2019-06-16 15:41] VITALS: TEMP 97.5
[2019-06-16 15:44] VITALS: BP 106/76; O2SAT 99
== END 2019-06-16 15:34 | disposition home or self-care (01) ==
LOC: ER 13:23
DX: G43.909 Migraine, unspecified, not intractable, without status migrainosus (principal); E78.5 Hyperlipidemia, unspecified; I10 Essential (primary) hypertension; Z88.5 Allergy status to narcotic agent
CPT/HCPCS: 96361; 85025; 80048; 36415; 84443; 70450; 96375; 96374; 99284; J2765; J7030

== ENCOUNTER 2019-10-05 02:41 | Emergency (ER) | payer OTHER ==
[2019-10-05 03:05] LABS: Urine Blood NEGATIVE (NEG); Urine Glucose NEGATIVE (NEG); Urine Protein NEGATIVE (NEG)
[2019-10-05] MEDS ORDERED: NA CHLORIDE 0.9% 1,000 ML ONE (03:05)
[2019-10-05] MEDS ORDERED: KETOROLAC 30 MG/ML INJ ONE (03:05)
[2019-10-05 03:23] LABS: Absolute Lymphocytes (CBC) 2.6 K/uL (0.7-4.9); Basophils % 0.4 % (0-1.3); Hematocrit 43.4 % (39.6-49.0); Lymphocytes % 33.3 % (15.3-44.8)
[2019-10-05 03:39] LABS: ALT/SGPT 35 U/L (12-78); AST/SGOT 16 U/L (15-37); Albumin 3.6 g/dL (3.4-5.0); Alkaline Phosphatase 92 U/L (45-117); BUN Blood Urea Nitrogen 17 mg/dL (7-18); Bicarbonate 26 mmol/L (21-32); Bilirubin Direct < 0.1 mg/dL (0-0.2); Bilirubin Total 0.2 mg/dL (0.2-1.0); Glucose Level 104 mg/dL (74-106); Lipase 277 U/L (73-393); Protein, Total 6.7 g/dL (6.4-8.2); Sodium Level 140 mmol/L (136-145)
[2019-10-05 05:17] LABS: Urine Bacteria <20 /HPF (NONE SEEN); Urine Culture Reflex Order NOT NEEDED; Urine RBC <5 /HPF (NONE SEEN)
--- NOTE | 2019-10-05 05:53 | EDPHYS ---
Physician Documentation [facility] Name: Zuhair Hawthorne Age: 34 yrs Sex: Male : 1985 Arrival Date: 10/05/2019 Time: 02:42 Bed 6 Private MD: ED Physician Ladarius Roy HPI: 10/05 03:01 This 34 yrs old Male presents to ER via Ambulatory with complaints of Kidney pkl Pain. 03:01 The patient presents with pain that is acute. The symptoms are located in the low back, pkl both sides of lower back. Onset: The symptoms/episode began/occurred 2 week(s) ago. Associated signs and symptoms: Pertinent positives: mild discomfort on urination. Historical: - Allergies: 02:59 Codeine; rr5 - Home Meds: 02:59 Lisinopril Oral [Active]; pantoprazole oral oral [Active]; Fish Oil oral oral [Active]; rr5 Niacin Oral [Active]; - PMHx: 02:59 Hyperlipidemia; Hypertension; Migraines; renal failure; tachycardia; GERD; rr5 - PSHx: 02:59 Knee surgery; rr5 - Immunization history:: Adult Immunizations unknown. - Social history:: Smoking status: Patient uses tobacco products, smokes one-half pack cigarettes per day, Patient uses alcohol, occasionally. Patient/guardian denies using street drugs. - Ebola Screening: : Patient negative for fever greater than or equal to 101.5 degrees Fahrenheit, and additional compatible Ebola Virus Disease symptoms Patient denies exposure to infectious person Patient denies travel to an Ebola-affected area in the 21 days before illness onset. ROS: 03:01 Eyes: Negative for injury, pain, redness, and discharge, ENT: Negative for injury, pkl pain, and discharge, Neck: Negative for injury, pain, and swelling, Cardiovascular: Negative for chest pain, palpitations, and edema, Respiratory: Negative for shortness of breath, cough, wheezing, and pleuritic chest pain, Abdomen/GI: Negative for abdominal pain, nausea, vomiting, diarrhea, and constipation. 03:01 Back: Positive for pain at rest, of the both sides of lower back. 03:01 : Positive for mild discomfort on urination. 03:01 MS/extremity: Negative for acute changes. 03:01 Skin: Negative for rash. 03:01 Neuro: Negative for altered mental status. Exam: 03:01 Head/Face: Normocephalic, atraumatic. Eyes: Pupils equal round and reactive to light, pkl extra-ocular motions intact. Lids and lashes normal. Conjunctiva and sclera are non-icteric and not injected. Cornea within normal limits. Periorbital areas with no swelling, redness, or edema. ENT: Nares patent. No nasal discharge, no septal abnormalities noted. Tympanic membranes are normal and external auditory canals are clear. Oropharynx with no redness, swelling, or masses, exudates, or evidence of obstruction, uvula midline. Mucous membranes moist. Neck: Trachea midline, no thyromegaly or masses palpated, and no cervical lymphadenopathy. Supple, full range of motion without nuchal rigidity, or vertebral point tenderness. No Meningismus. Chest/axilla: Normal chest wall appearance and motion. Nontender with no deformity. No lesions are appreciated. Cardiovascular: Regular rate and rhythm with a normal S1 and S2. No gallops, murmurs, or rubs. Normal PMI, no JVD. No pulse deficits. Respiratory: Lungs have equal breath sounds bilaterally, clear to auscultation and percussion. No rales, rhonchi or wheezes noted. No increased work of breathing, no retractions or nasal flaring. Abdomen/GI: Soft, non-tender, with normal bowel sounds. No distension or tympany. No guarding or rebound. No evidence of tenderness throughout. Back: No spinal tenderness. No costovertebral tenderness. Full range of motion. Skin: Warm, dry with normal turgor. Normal color with no rashes, no lesions, and no evidence of cellulitis. MS/ Extremity: Pulses equal, no cyanosis. Neurovascular intact. Full, normal range of motion. Neuro: Awake and alert, GCS 15, oriented to person, place, time, and situation. Cranial nerves II-XII grossly intact. Motor strength 5/5 in all extremities. Sensory grossly intact. Cerebellar exam normal. Normal gait. Vital Signs: 02:50 BP 121 / 87; Pulse 86; Resp 19; Temp 97.2; Pulse Ox 99% ; Weight 89.81 kg; Height 5 ft. rr5 10 in. (177.80 cm); Pain 5/10; 04:15 BP 105 / 75; Pulse 80; Resp 16; Pulse Ox 99% ; Pain 3/10; rr5 05:30 BP 108 / 78; Pulse 71; Resp 16; Pulse Ox 99% ; rr5 06:01 BP 110 / 76; Pulse 69; Resp 15; Temp 97.5; Pulse Ox 99% ; Pain 4/10; rr5 02:50 Body Mass Index 28.41 (89.81 kg, 177.80 cm) rr5 MDM: 02:45 Patient medically screened. pkl 05:50 Data reviewed: vital signs, nurses notes, lab test result(s), radiologic studies, CT pkl scan. ED course: Discussed lab. and CT scan results with patient. Advised to follow up with PCP in 2 to 3 days. Patient understood instructions. 10/05 03:00 Order name: Basic Metabolic Panel pk 10/05 03:00 Order name: CBC with Diff pk 10/05 03:00 Order name: Creatinine for Radiology pk 10/05 03:00 Order name: Hepatic Function pk 10/05 03:00 Order name: Lipase pk 10/05 03:01 Order name: Urine Dipstick--Ancillary (enter results) vt 10/05 03:06 Order name: Urine Dipstick-Ancillary; Complete Time: 03:45 EDMS 10/05 03:25 Order name: CBC with Automated Diff; Complete Time: 03:45 EDMS 10/05 03:35 Order name: Creatinine (Radiology Only); Complete Time: 03:45 EDMS 10/05 03:39 Order name: Basic Metabolic Panel; Complete Time: 03:45 EDMS 10/05 03:39 Order name: Liver (Hepatic) Function; Complete Time: 03:45 EDMS 10/05 03:39 Order name: Lipase; Complete Time: 03:45 EDMS 10/05 03:44 Order name: Urine Microscopic Only 10/05 03:44 Order name: Urine Culture 10/05 03:00 Order name: IV Saline Lock; Complete Time: 03:28 pk 10/05 03:00 Order name: Labs collected and sent; Complete Time: 03:28 pk 10/05 03:47 Order name: CT Abd/Pelvis - IV Contrast Only pk 10/05 05:18 Order name: Urine Microscopic Only; Complete Time: 05:49 EDMS Administered Medications: 03:09 Drug: NS 0.9% 1000 ml Route: IV; Rate: 1000 ml; Site: right forearm; rr5 04:53 Follow up: Response: No adverse reaction; IV Status: Completed infusion; IV Intake: rr5 1000ml 03:10 Drug: TORadol 30 mg Route: IVP; Site: right forearm; rr5 04:10 Follow up: Response: No adverse reaction; Pain is decreased rr5 Disposition: 10/05/19 05:52 Discharged to Home. Impression: Low back pain. - Condition is Stable. - Prescriptions for Ultram 50 mg Oral Tablet - take 1 tablet by ORAL route every 8 hours As needed; 12 tablet. - Medication Reconciliation Form, Thank You Letter, Antibiotic Education, Prescription Opioid Use form. - Follow up: Private Physician; When: 2 - 3 days; Reason: Re-evaluation by your physician. - Problem is new. - Symptoms have improved. Signatures: Dispatcher [employer] EDMS Ladarius Roy MD MD pkArline Pires RN RN Dorian Rogers RN RN rr5 Corrections: (The following items were deleted from the chart) 04:30 03:44 Sachin ordered. joe 06:02 05:52 10/05/2019 05:52 Discharged to Home. Impression: Low back pain. Condition is rr5 Stable. Forms are Medication Reconciliation Form, Thank You Letter, Antibiotic Education, Prescription Opioid Use. Follow up: Private Physician; When: 2 - 3 days; Reason: Re-evaluation by your physician. Problem is new. Symptoms have improved. pkl
--- NOTE | 2019-10-05 05:53 | ER ---
Nurse's Notes [facility] Name: Zuhair Hawthorne Age: 34 yrs Sex: Male : 1985 Arrival Date: 10/05/2019 Time: 02:42 Bed 6 Private MD: Diagnosis: Low back pain Presentation: 10/05 02:50 Presenting complaint: Patient states: I am having this back pain looks like my kidney, rr5 started 2 weeks ago. it's like a sharp, throbbing pain gradually getting worse pain score 5/10. discomfort while urinating started today. 02:50 Transition of care: patient was not received from another setting of care. Onset of rr5 symptoms was September 2019. Risk Assessment: Do you want to hurt yourself or someone else? Patient reports no desire to harm self or others. Initial Sepsis Screen: Does the patient meet any 2 criteria? No. Patient's initial sepsis screen is negative. Does the patient have a suspected source of infection? No. Patient's initial sepsis screen is negative. Note i have been diagnose with renal failure 3 years ago and now I'm thinking may be its a bladder infection. Care prior to arrival: None. 02:50 Method Of Arrival: Ambulatory rr5 02:50 Acuity: BRIE 3 rr5 Historical: - Allergies: 02:59 Codeine; rr5 - Home Meds: 02:59 Lisinopril Oral [Active]; pantoprazole oral oral [Active]; Fish Oil oral oral [Active]; rr5 Niacin Oral [Active]; - PMHx: 02:59 Hyperlipidemia; Hypertension; Migraines; renal failure; tachycardia; GERD; rr5 - PSHx: 02:59 Knee surgery; rr5 - Immunization history:: Adult Immunizations unknown. - Social history:: Smoking status: Patient uses tobacco products, smokes one-half pack cigarettes per day, Patient uses alcohol, occasionally. Patient/guardian denies using street drugs. - Ebola Screening: : Patient negative for fever greater than or equal to 101.5 degrees Fahrenheit, and additional compatible Ebola Virus Disease symptoms Patient denies exposure to infectious person Patient denies travel to an Ebola-affected area in the 21 days before illness onset. Screenin:00 Abuse screen: Denies threats or abuse. Denies injuries from another. Nutritional rr5 screening: No deficits noted. Tuberculosis screening: No symptoms or risk factors identified. Fall Risk None identified. Total Joseph Fall Scale indicates No Risk (0-24 pts). Assessment: 03:00 General: Appears in no apparent distress. uncomfortable, Behavior is calm, cooperative, rr5 appropriate for age. Pain: Complains of pain in mid back area Pain does not radiate. Pain currently is 5 out of 10 on a pain scale. Quality of pain is described as sharp, throbbing, Pain began gradually, Is intermittent. Neuro: Level of Consciousness is awake, alert, obeys commands, Oriented to person, place, time, situation, Appropriate for age. Cardiovascular: Capillary refill < 3 seconds Patient's skin is warm and dry. Respiratory: Airway is patent Respiratory effort is even, unlabored, Respiratory pattern is regular, symmetrical. GI: No signs and/or symptoms were reported involving the gastrointestinal system. : Urine is clear, Reports pain in bilateral flank(s), with urination. EENT: No signs and/or symptoms were reported regarding the EENT system. Derm: Skin is intact, is healthy with good turgor, Skin temperature is warm. Musculoskeletal: Circulation, motion, and sensation intact. Capillary refill < 3 seconds. 04:10 Reassessment: Patient appears in no apparent distress at this time. Patient is alert, rr5 oriented x 3, equal unlabored respirations, skin warm/dry/pink. awaiting for CT result. Patient states feeling better. Patient states symptoms have improved. 05:00 Reassessment: Patient appears in no apparent distress at this time. No changes from rr5 previously documented assessment. resting eyes closed breathing spontaneously at room air. 06:00 Reassessment: Patient appears in no apparent distress at this time. Patient is alert, rr5 oriented x 3, equal unlabored respirations, skin warm/dry/pink. discharge instruction given and explained without complaints made. Patient states feeling better. Patient states symptoms have improved. Vital Signs: 02:50 BP 121 / 87; Pulse 86; Resp 19; Temp 97.2; Pulse Ox 99% ; Weight 89.81 kg; Height 5 ft. rr5 10 in. (177.80 cm); Pain 5/10; 04:15 BP 105 / 75; Pulse 80; Resp 16; Pulse Ox 99% ; Pain 3/10; rr5 05:30 BP 108 / 78; Pulse 71; Resp 16; Pulse Ox 99% ; rr5 06:01 BP 110 / 76; Pulse 69; Resp 15; Temp 97.5; Pulse Ox 99% ; Pain 4/10; rr5 02:50 Body Mass Index 28.41 (89.81 kg, 177.80 cm) rr5 ED Course: 02:42 Patient arrived in ED. ds1 02:45 Dorian Morgan, RN is Primary Nurse. rr5 02:45 Ladarius Roy MD is Attending Physician. pkl 02:55 Triage completed. rr5 03:00 Arm band placed on right wrist. rr5 03:00 Patient has correct armband on for positive identification. Placed in gown. Bed in low rr5 position. Call light in reach. 03:15 Inserted saline lock: 20 gauge in right forearm, using aseptic technique. Blood oe collected. 04:26 CT completed. Patient tolerated procedure well. Patient moved to [place]. Patient moved back from [place]. 06:01 No provider procedures requiring assistance completed. IV discontinued, intact, rr5 bleeding controlled, No redness/swelling at site. Pressure dressing applied. Administered Medications: 03:09 Drug: NS 0.9% 1000 ml Route: IV; Rate: 1000 ml; Site: right forearm; rr5 04:53 Follow up: Response: No adverse reaction; IV Status: Completed infusion; IV Intake: rr5 1000ml 03:10 Drug: TORadol 30 mg Route: IVP; Site: right forearm; rr5 04:10 Follow up: Response: No adverse reaction; Pain is decreased rr5 Intake: 04:53 IV: 1000ml; Total: 1000ml. rr5 Outcome: 05:52 Discharge ordered by . pkl 06:01 Discharged to home ambulatory. rr5 06:01 Condition: stable 06:01 Discharge instructions given to patient, Instructed on discharge instructions, follow up and referral plans. medication usage, Demonstrated understanding of instructions, follow-up care, medications, Prescriptions given X 1. 06:02 Patient left the ED. rr5 Signatures: Ladarius Roy MD MD pkl Hagler, Ervin Amber Mak ds1 Edward Tabor Raymond, RN RN rr5
--- NOTE | 2019-10-05 10:14 | RAD REPORT ---
EXAM DESCRIPTION: CT - Abdomen Pelvis W Contrast - 10/05/2019 6:44 am CLINICAL HISTORY: Rafal. flank pain COMPARISON: None. TECHNIQUE: CT ABDOMEN PELVIS WITH IV CONTRAST on 10/05/2019 3:47 AM SPECIAL EDUCATION CURRICULUM SPECIALIST This exam was performed according to our departmental dose-optimization program, which includes autom ated exposure control, adjustment of the mA and/or kV according to patient size and/or use of iterati ve reconstruction technique. FINDINGS: Lower lungs are clear. Abdomen: The liver is normal in appearance. There is no biliary dilatation. Gallbladder is decompress ed. The pancreas and spleen are normal in appearance. The adrenal glands and kidneys are unremarkable . Abdominal aorta is normal in course and caliber without aneurysm. There is no free air. There is no r etroperitoneal adenopathy. Pelvis: There is no bowel obstruction. Urinary bladder is unremarkable. There is no free fluid. Appen vaughn is normal. Skeleton: There are no acute osseous findings. No suspicious bony lesions. IMPRESSION: No acute process. Electronically signed by: Rafi Sanders MD 10/05/2019 4:51 AM SPECIAL EDUCATION CURRICULUM SPECIALIST Due to temporary technical issues with the PACS/Fluency reporting system, reports are being signed by the in house radiologist as a courtesy to ensure prompt reporting. The interpreting radiologist is f ully responsible for the content of the report
[2019-10-05 16:48] VITALS: O2SAT 99
[2019-10-05 16:52] VITALS: BP 110/76; TEMP 97.5
== END 2019-10-05 06:02 | disposition home or self-care (01) ==
LOC: ER 02:41
DX: M54.5 Low back pain (principal); I10 Essential (primary) hypertension; E78.5 Hyperlipidemia, unspecified; F17.210 Nicotine dependence, cigarettes, uncomplicated; Z88.5 Allergy status to narcotic agent
CPT/HCPCS: 96361; 87088; 85025; 87086; 80048; 36415; 80076; 83690; 74177; 96374; 99284; Q9967; J7030; 81003; 81015

== ENCOUNTER 2020-01-03 20:25 | Emergency (ER) | payer OTHER ==
--- NOTE | 2020-01-03 22:13 | ER ---
Nurse's Notes [facility] Name: Zuhair Hawthorne Age: 34 yrs Sex: Male : 1985 Arrival Date: 01/03/2020 Time: 20:26 Bed 12 Private MD: Diagnosis: Nondisplaced fracture of base of fifth metacarpal bone. left hand Presentation: 01/03 20:29 Chief complaint: Patient states: Fall from ladder, reports catching himself from sg falling, complaining of pain to the left hand and left wrist, denies head injury or any other complaints at this time. Coronavirus screen: The patient has NOT traveled to [place] in the past 14 days. The patient has NOT had contact with known and/or suspected case of Coronavirus. Ebola Screen: Patient negative for fever greater than or equal to 101.5 degrees Fahrenheit, and additional compatible Ebola Virus Disease symptoms Patient denies exposure to infectious person. Patient denies travel to an Ebola-affected area in the 21 days before illness onset. No symptoms or risks identified at this time. Initial Sepsis Screen: Does the patient meet any 2 criteria? No. Patient's initial sepsis screen is negative. Does the patient have a suspected source of infection? No. Patient's initial sepsis screen is negative. Risk Assessment: Do you want to hurt yourself or someone else? Patient reports no desire to harm self or others. 20:29 Method Of Arrival: Ambulatory sg 20:29 Acuity: BRIE 4 sg Historical: - Allergies: 20:31 Codeine (Hives, Rash); sg - PMHx: 20:31 GERD; Hyperlipidemia; Hypertension; Migraines; RENAL FAILURE; Tachycardia; sg - PSHx: 20:31 Knee surgery; sg - Immunization history:: Adult Immunizations up to date. - Social history:: Smoking status: Patient denies any tobacco usage or history of. Screenin:31 Abuse screen: Denies threats or abuse. Denies injuries from another. Nutritional sg screening: No deficits noted. Tuberculosis screening: No symptoms or risk factors identified. Never had TB. Fall Risk None identified. Assessment: 20:31 General: Appears in no apparent distress. well groomed, well developed, well nourished. sg Pain: Complains of pain in left hand Quality of pain is described as aching. Neuro: Level of Consciousness is awake, alert, obeys commands, Oriented to person, place, time, Speech is normal, Facial symmetry appears normal. Cardiovascular: Patient's skin is warm and dry. Chest pain is denied. Respiratory: Airway is patent Respiratory effort is even, unlabored, Respiratory pattern is regular, symmetrical. GI: Abdomen is round. : No signs and/or symptoms were reported regarding the genitourinary system. EENT: No signs and/or symptoms were reported regarding the EENT system. Derm: Skin is pink, warm \T\ dry. Musculoskeletal: Circulation, motion, and sensation intact. Range of motion: intact in all extremities, Swelling present in left hand. Vital Signs: 20:29 Weight 90.72 kg; Height 5 ft. 10 in. (177.80 cm); sg 20:29 BP 142 / 70; Pulse 89; Resp 17; Temp 98.2; Pulse Ox 100% on R/A; Pain 6/10; mw 20:29 Body Mass Index 28.70 (90.72 kg, 177.80 cm) sg ED Course: 20:20 Patient has correct armband on for positive identification. sg 20:26 Patient arrived in ED. ag3 20:28 Arm band placed on. sg 20:30 Triage completed. sg 20:41 Lorri Stone FNP-C is [facility]. kb 20:41 Ladarius Roy MD is Attending Physician. kb 21:14 Hand Left 3 View XRAY In Process Unspecified. EDMS 21:20 Pravin Finnegan, RN is Primary Nurse. sg 22:20 No provider procedures requiring assistance completed. Patient did not have IV access sg during this emergency room visit. Orthoglass splint: Ulnar gutter/Boxer splint applied on left forearm. Administered Medications: 22:14 Drug: Bethune (7.5 mg-325 mg) 1 tabs Route: PO; sg Outcome: 22:11 Discharge ordered by . kb 22:20 Discharged to home ambulatory, with family. sg 22:20 Condition: good 22:20 Discharge instructions given to patient, Instructed on discharge instructions, follow up and referral plans. no drinking with medication, no driving heavy equipment, medication usage, safety practices, Demonstrated understanding of instructions, follow-up care, medications, splint care, Prescriptions given X 1. 22:27 Patient left the ED. sg Signatures: Dispatcher [employer] EDMS Lorri Stone BUCKY-C COMBINATION TECHNICIAN-CkLouisa Lilly RN RN Pravin Finnegan RN RN Lorena Simon 3 Triny Paige lt1 Corrections: (The following items were deleted from the chart) 23: 20:28 EKG completed in triage. Results shown to MD. [facility] : 22:35 Orthoglass splint: Ulnar gutter/Boxer splint applied on left forearm. lt1 : 22:30 No provider procedures requiring assistance completed. [facility] : 22:30 Patient did not have IV access during this emergency room visit. [facility]
--- NOTE | 2020-01-03 22:13 | EDPHYS ---
Physician Documentation [facility] Name: Zuhair Hawthorne Age: 34 yrs Sex: Male : 1985 Arrival Date: 01/03/2020 Time: 20:26 Bed 12 Private MD: ED Physician Ladarius Roy HPI: 01/04 01:01 This 34 yrs old Male presents to ER via Ambulatory with complaints of Hand kb Injury. 01:01 The patient or guardian reports decreased range of motion, injury, pain, swelling, kb tenderness. The complaints affect the medial aspect of left hand. Context: The problem was sustained at home, resulted from a fall. Onset: The symptoms/episode began/occurred today. Modifying factors: The symptoms are alleviated by nothing, the symptoms are aggravated by nothing. Associated signs and symptoms: The patient has no apparent associated signs or symptoms. Severity of symptoms: At their worst the symptoms were moderate, in the emergency department the symptoms are unchanged. The patient has not experienced similar symptoms in the past. The patient has not recently seen a physician. Pt fell from ladder today and injured left hand. . Historical: - Allergies: 01/03 20:31 Codeine (Hives, Rash); sg - PMHx: 20:31 GERD; Hyperlipidemia; Hypertension; Migraines; RENAL FAILURE; Tachycardia; sg - PSHx: 20:31 Knee surgery; sg - Immunization history:: Adult Immunizations up to date. - Social history:: Smoking status: Patient denies any tobacco usage or history of. ROS: 01/04 01:00 Constitutional: Negative for fever, chills, and weight loss, Neck: Negative for injury, kb pain, and swelling, Cardiovascular: Negative for chest pain, palpitations, and edema, Respiratory: Negative for shortness of breath, cough, wheezing, and pleuritic chest pain, Abdomen/GI: Negative for abdominal pain, nausea, vomiting, diarrhea, and constipation, Back: Negative for injury and pain, Skin: Negative for injury, rash, and discoloration, Neuro: Negative for headache, weakness, numbness, tingling, and seizure. MS/extremity: Positive for injury or acute deformity, decreased range of motion, pain, swelling, tenderness, of the medial aspect of left hand. Exam: 01:00 Constitutional: This is a well developed, well nourished patient who is awake, alert, kb and in no acute distress. Head/Face: Normocephalic, atraumatic. Chest/axilla: Normal chest wall appearance and motion. Nontender with no deformity. No lesions are appreciated. Cardiovascular: Regular rate and rhythm with a normal S1 and S2. No gallops, murmurs, or rubs. Normal PMI, no JVD. No pulse deficits. Respiratory: Lungs have equal breath sounds bilaterally, clear to auscultation and percussion. No rales, rhonchi or wheezes noted. No increased work of breathing, no retractions or nasal flaring. Abdomen/GI: Soft, non-tender, with normal bowel sounds. No distension or tympany. No guarding or rebound. No evidence of tenderness throughout. Skin: Warm, dry with normal turgor. Normal color with no rashes, no lesions, and no evidence of cellulitis. Neuro: Awake and alert, GCS 15, oriented to person, place, time, and situation. Cranial nerves II-XII grossly intact. Motor strength 5/5 in all extremities. Sensory grossly intact. Cerebellar exam normal. Normal gait. 01:00 Musculoskeletal/extremity: Extremities: grossly normal except: noted in the medial aspect of left hand: decreased ROM, pain, swelling, tenderness, ROM: limited active range of motion due to pain, in the medial aspect of left hand, Circulation is intact in all extremities. Sensation intact. Vital Signs: 01/03 20:29 Weight 90.72 kg; Height 5 ft. 10 in. (177.80 cm); sg 20:29 BP 142 / 70; Pulse 89; Resp 17; Temp 98.2; Pulse Ox 100% on R/A; Pain 6/10; mw 20:29 Body Mass Index 28.70 (90.72 kg, 177.80 cm) sg MDM: 20:42 Patient medically screened. kb 01/04 01:00 Data reviewed: vital signs, nurses notes. Data interpreted: Pulse oximetry: on room air kb is 100 %. Interpretation: normal. Counseling: I had a detailed discussion with the patient and/or guardian regarding: the historical points, exam findings, and any diagnostic results supporting the discharge/admit diagnosis, radiology results, the need for outpatient follow up, a orthopedic surgeon, to return to the emergency department if symptoms worsen or persist or if there are any questions or concerns that arise at home. 01/03 20:51 Order name: Hand Left 3 View XRAY kb 01/03 21:45 Order name: Ulnar Gutter splint; Complete Time: 22:14 kb Administered Medications: 01/03 22:14 Drug: [place] (7.5 mg-325 mg) 1 tabs Route: PO; Disposition: 01/04 01:52 Co-signature as Attending Physician, Ladarius Roy MD. pkl Disposition: 01/03/20 22:11 Discharged to Home. Impression: Nondisplaced fracture of base of fifth metacarpal bone. left hand. - Condition is Stable. - Discharge Instructions: Metacarpal Fracture, [id number]. - Prescriptions for Diclofenac Sodium 75 mg Oral Tablet, Delayed Release (E.C.) - take 1 tablet by ORAL route 2 times per day As needed; 30 tablet. - Medication Reconciliation Form, Thank You Letter, Antibiotic Education, Prescription Opioid Use, Work release form form. - Follow up: Emergency Department; When: As needed; Reason: Worsening of condition. Follow up: Private Physician; When: 2 - 3 days; Reason: Recheck today's complaints, Continuance of care, Re-evaluation by your physician. Signatures: Dispatcher [employer] Lorri Capellan, BUCKY-C BUCKY-Pravin Zazueta RN RN sg Lam, MD CAMI Durand pkl Corrections: (The following items were deleted from the chart) 01/03 22:27 22:11 01/03/2020 22:11 Discharged to Home. Impression: Nondisplaced fracture of base of sg fifth metacarpal bone. left hand. Condition is Stable. Forms are Medication Reconciliation Form, Thank You Letter, Antibiotic Education, Prescription Opioid Use. Follow up: Emergency Department; When: As needed; Reason: Worsening of condition. Follow up: Private Physician; When: 2 - 3 days; Reason: Recheck today's complaints, Continuance of care, Re-evaluation by your physician. kb
[2020-01-03] MEDS ORDERED: HYDROCODONE/APAP 7.5/325 MG TAB ONE (22:20)
[2020-01-03 22:45] VITALS: BP 142/70; TEMP 98.2; O2SAT 100
--- NOTE | 2020-01-04 08:23 | RAD REPORT ---
EXAM DESCRIPTION: RAD - Hand Left 3 View - 01/03/2020 9:13 pm CLINICAL HISTORY: Fall, left hand pain COMPARISON: None. FINDINGS: No fracture, dislocation or periosteal reaction noted. Cortical changes in the proximal fi fth metacarpal shaft may reflect remodeling from old fracture. No air or foreign body in the soft tissues. IMPRESSION: No fracture. No acute bone or joint finding.
== END 2020-01-03 22:27 | disposition home or self-care (01) ==
LOC: ER 20:25
PROC: 2W3DX1Z Immobilization of Left Lower Arm using Splint (ICD-10-PCS; principal; 2020-01-03)
DX: S62.347A Nondisplaced fracture of base of fifth metacarpal bone, left hand, initial encounter for closed fracture (principal); W11.XXXA Fall on and from ladder, initial encounter; Y93.9 Activity, unspecified; Y92.009 Unspecified place in unspecified non-institutional (private) residence as the place of occurrence of the external cause; I10 Essential (primary) hypertension; Z88.5 Allergy status to narcotic agent
CPT/HCPCS: 99284

== ENCOUNTER 2020-06-10 19:30 | Emergency (ER) | payer OTHER ==
[2020-06-10] MEDS ORDERED: ONDANSETRON 4 MG/2 ML VIAL ONE (20:40)
[2020-06-10] MEDS ORDERED: FENTANYL CITR 100 MCG/2 ML ONE (20:40)
[2020-06-10 20:45] LABS: Absolute Lymphocytes (CBC) 2.1 K/uL (0.7-4.9); Basophils % 0.4 % (0-1.3); Hematocrit 42.3 % (39.6-49.0); Lymphocytes % 22.5 % (15.3-44.8); MPV 8.1 fL (7.6-11.3); RBC Red Blood Cell Count 4.86 M/uL (4.33-5.43)
[2020-06-10 20:55] LABS: Potassium 4.2 mmol/L (3.5-5.1)
--- NOTE | 2020-06-10 21:05 | RAD REPORT ---
EXAM DESCRIPTION: CTFacial Bones W Con Mpr06/10/2020 8:48 pm CLINICAL HISTORY: Facial pain and swelling COMPARISON: None. TECHNIQUE: Computed axial tomography of the face obtained with coronal and sagittal reconstruction. 50 cc Isovue-[address] scans are performed using dose optimization technique as appropriate and may include automated exposure control or mA/KV adjustment according to patient size. FINDINGS: 6 millimeter lucency is present within a right mandibular tooth consistent with abscess. M ild adjacent soft tissue swelling. The parotid and submandibular glands appear unremarkable. The parapharyngeal fat is clear. Visualized airway unremarkable Tiny amount of fluid is present within the left maxillary sinus. Moderate opacification ethmoid sinus es. IMPRESSION: 6 millimeter abscess right mandibular tooth
[2020-06-10] MEDS ORDERED: KETOROLAC 30 MG/ML INJ ONE (21:46)
[2020-06-10] MEDS ORDERED: HYDROMORPHONE HCL 1 MG/ML INJ ONE (21:46)
[2020-06-10] MEDS ORDERED: CEFTRIAXONE/SWI 1gm 1 GM/10 ML SYR ONE (21:47)
--- NOTE | 2020-06-10 22:04 | ER ---
Nurse's Notes [facility] Name: Zuhair Hawthorne Age: 35 yrs Sex: Male : 1985 Arrival Date: 06/10/2020 Time: 19:32 Bed 17 Private MD: Diagnosis: Periapical abscess without sinus Presentation: 06/10 19:50 Chief complaint: Patient states: Reports he may have an infection in his jaw and behind ea his nose, reports symptoms worsened 3 days ago. Reports he was seen and was prescribed clindamycin, he started antibiotics 5 days ago. Coronavirus screen: At this time, the client does not indicate any symptoms associated with coronavirus-19. Ebola Screen: No symptoms or risks identified at this time. Initial Sepsis Screen: Does the patient meet any 2 criteria? No. Patient's initial sepsis screen is negative. Does the patient have a suspected source of infection? No. Patient's initial sepsis screen is negative. Risk Assessment: Do you want to hurt yourself or someone else? Patient reports no desire to harm self or others. Onset of symptoms was June 10, 2020. 19:50 Method Of Arrival: Ambulatory ea 19:50 Acuity: BRIE 3 ea Historical: - Allergies: 19:53 Codeine (Hives, rash); ea - Home Meds: 19:53 Niacin Oral [Active]; pantoprazole Oral [Active]; lisinopril Oral [Active]; Fish Oil ea Oral [Active]; - PMHx: 19:53 Tachycardia; RENAL FAILURE; Migraines; Hypertension; Hyperlipidemia; GERD; ea - PSHx: 19:53 Knee surgery; ea - Immunization history:: Adult Immunizations up to date. - Social history:: Smoking status: Reported history of juuling and/or vaping. Screenin:52 Abuse screen: Denies threats or abuse. Denies injuries from another. Nutritional lp1 screening: No deficits noted. Tuberculosis screening: No symptoms or risk factors identified. Fall Risk None identified. Assessment: 19:50 General: Appears uncomfortable, Behavior is appropriate for age. Pain: Complains of lp1 pain in gums, philtrum and upper vermilion border Pain currently is 9 out of 10 on a pain scale. Quality of pain is described as sharp. Neuro: Level of Consciousness is awake, alert, obeys commands. Cardiovascular: Patient's skin is warm and dry. Respiratory: No deficits noted. GI: No signs and/or symptoms were reported involving the gastrointestinal system. : No signs and/or symptoms were reported regarding the genitourinary system. EENT: Reports pain in gums, philtrum and upper vermilion border. Derm: Skin is pink, warm \T\ dry. Musculoskeletal: No deficits noted. 21:00 Reassessment: Patient and/or family updated on plan of care and expected duration. Pain mt2 level reassessed. Patient is alert, oriented x 3, equal unlabored respirations, skin warm/dry/pink. General: Appears uncomfortable, Behavior is cooperative. Pain: Complains of pain in mouth Pain currently is 10 out of 10 on a pain scale. Quality of pain is described as sharp. 22:11 Reassessment: Patient and/or family updated on plan of care and expected duration. Pain mt2 level reassessed. Patient is alert, oriented x 3, equal unlabored respirations, skin warm/dry/pink. Patient states symptoms have improved. General: Appears comfortable, Behavior is cooperative. Vital Signs: 19:50 BP 146 / 96; Pulse 63; Resp 18; Temp 98.4; Pulse Ox 97% ; Weight 81.65 kg; Height 5 ft. ea 10 in. (177.80 cm); 21:00 BP 131 / 95; Pulse 74; Resp 16; Pulse Ox 97% on R/A; Pain 10/10; mt2 22:17 BP 141 / 90; Pulse 89; Resp 16; Pulse Ox 96% on R/A; Pain 5/10; mt2 19:50 Body Mass Index 25.83 (81.65 kg, 177.80 cm) ED Course: 19:32 Patient arrived in ED. cf2 19:41 Dionicio Desouza PA is PHCP. jr8 19:41 Michael Angeles MD is Attending Physician. jr8 19:50 Patti Moon, LEVI is Primary Nurse. lp1 19:52 Triage completed. ea 19:52 Patient has correct armband on for positive identification. lp1 19:52 Arm band placed on right wrist. Patient placed in an exam room, on a stretcher, on ea pulse oximetry. 20:22 Initial lab(s) drawn, by me, sent to lab. Inserted saline lock: 18 gauge in right upper mt2 arm, using aseptic technique. Blood collected. 20:48 CT Facial Bones W/ Con \T\ Mpr In Process Unspecified. EDMS 22:03 Micheal Mas DDS is Referral Physician. jr8 22:11 No provider procedures requiring assistance completed. IV discontinued, intact, mt2 bleeding controlled, No redness/swelling at site. Pressure dressing applied. Administered Medications: 20:35 Drug: fentaNYL (PF) 50 mcg Route: IVP; Site: right upper arm; mt2 21:00 Follow up: Response: No adverse reaction; Pain is increased mt2 20:35 Drug: Zofran (Ondansetron) 4 mg Route: IVP; Site: right upper arm; mt2 21:05 Follow up: Response: No adverse reaction; Nausea is decreased mt2 21:35 Drug: TORadol 30 mg Route: IVP; Site: right upper arm; mt2 22:00 Follow up: Response: No adverse reaction; Pain is decreased mt2 21:35 Drug: Dilaudid 1 mg Route: IVP; Site: right upper arm; mt2 22:00 Follow up: Response: No adverse reaction; Pain is decreased mt2 21:35 Drug: Rocephin 1 grams Route: IV; Rate: calculated rate; Site: right upper arm; mt2 21:45 Follow up: Response: No adverse reaction; IV Status: Completed infusion mt2 Outcome: 22:03 Discharge ordered by . jr8 22:11 Discharged to home ambulatory. mt2 22:11 Condition: good 22:11 Discharge instructions given to patient, Instructed on discharge instructions, follow up and referral plans. medication usage, DENTIST F/U Demonstrated understanding of instructions, follow-up care, medications, Prescriptions given X 1. 22:26 Patient left the ED. mt2 Signatures: Dispatcher [employer] EDUT Patti Moon RN RN lp1 Dioincio Desouza PA PA jr8 Nita Lima RN Ashanti Lester ea cf2 Nora Elkins RN RN mt2
--- NOTE | 2020-06-10 22:05 | EDPHYS ---
Physician Documentation [facility] Name: Zuhair Hawthorne Age: 35 yrs Sex: Male : 1985 Arrival Date: 06/10/2020 Time: 19:32 Bed 17 Private MD: ED Physician Michael Angeles HPI: 06/10 20:57 This 35 yrs old Male presents to ER via Ambulatory with complaints of Jaw jr8 Pain. 20:57 The patient presents with pain. The problem is located in the mouth. Onset: The jr8 symptoms/episode began/occurred gradually, 5 day(s) ago, and became worse. Duration: The symptoms are continuous. Modifying factors: The symptoms are alleviated by nothing, the symptoms are aggravated by nothing. Associated signs and symptoms: The patient has no apparent associated signs or symptoms. Severity of symptoms: At their worst the symptoms were moderate, in the emergency department the symptoms are unchanged. The patient has not experienced similar symptoms in the past. The patient has been recently seen by a physician:. Patient stated that he was seen and started on Clindamycin about 5 days ago when pain started. Came in today because the last 2-3 days has been worse. Denies fevers or other complaints . Historical: - Allergies: 19:53 Codeine (Hives, rash); ea - Home Meds: 19:53 Niacin Oral [Active]; pantoprazole Oral [Active]; lisinopril Oral [Active]; Fish Oil ea Oral [Active]; - PMHx: 19:53 Tachycardia; RENAL FAILURE; Migraines; Hypertension; Hyperlipidemia; GERD; ea - PSHx: 19:53 Knee surgery; ea - Immunization history:: Adult Immunizations up to date. - Social history:: Smoking status: Reported history of juuling and/or vaping. ROS: 20:57 Eyes: Negative for injury, pain, redness, and discharge, Neck: Negative for injury, jr8 pain, and swelling, Cardiovascular: Negative for chest pain, palpitations, and edema, Respiratory: Negative for shortness of breath, cough, wheezing, and pleuritic chest pain, Abdomen/GI: Negative for abdominal pain, nausea, vomiting, diarrhea, and constipation, Back: Negative for injury and pain, MS/Extremity: Negative for injury and deformity, Skin: Negative for injury, rash, and discoloration, Neuro: Negative for headache, weakness, numbness, tingling, and seizure. 20:57 ENT: Positive for dental pain. Exam: 20:57 Eyes: Pupils equal round and reactive to light, extra-ocular motions intact. Lids and jr8 lashes normal. Conjunctiva and sclera are non-icteric and not injected. Cornea within normal limits. Periorbital areas with no swelling, redness, or edema. Neck: Trachea midline, no thyromegaly or masses palpated, and no cervical lymphadenopathy. Supple, full range of motion without nuchal rigidity, or vertebral point tenderness. No Meningismus. Cardiovascular: Regular rate and rhythm with a normal S1 and S2. No gallops, murmurs, or rubs. Normal PMI, no JVD. No pulse deficits. Respiratory: Lungs have equal breath sounds bilaterally, clear to auscultation and percussion. No rales, rhonchi or wheezes noted. No increased work of breathing, no retractions or nasal flaring. Abdomen/GI: Soft, non-tender, with normal bowel sounds. No distension or tympany. No guarding or rebound. No evidence of tenderness throughout. Back: No spinal tenderness. No costovertebral tenderness. Full range of motion. Skin: Warm, dry with normal turgor. Normal color with no rashes, no lesions, and no evidence of cellulitis. MS/ Extremity: Pulses equal, no cyanosis. Neurovascular intact. Full, normal range of motion. Neuro: Awake and alert, GCS 15, oriented to person, place, time, and situation. Cranial nerves II-XII grossly intact. Motor strength 5/5 in all extremities. Sensory grossly intact. Cerebellar exam normal. Normal gait. 20:57 Head/face: Noted is tenderness, that is moderate, of the right cheek. 20:57 ENT: Exam is negative for injury of acute deformity, earache, ear discharge, TM abnormalities, nasal discharge, obvious nasal foreign body, septal hematoma, sinus tenderness, enlarged tonsils, peritonsillar abscess pharyngitis, dysphagia, exudate, abnormal voice, Dental exam: dental caries, that is moderate, diffusely. Vital Signs: 19:50 BP 146 / 96; Pulse 63; Resp 18; Temp 98.4; Pulse Ox 97% ; Weight 81.65 kg; Height 5 ft. ea 10 in. (177.80 cm); 21:00 BP 131 / 95; Pulse 74; Resp 16; Pulse Ox 97% on R/A; Pain 10/10; mt2 22:17 BP 141 / 90; Pulse 89; Resp 16; Pulse Ox 96% on R/A; Pain 5/10; mt2 19:50 Body Mass Index 25.83 (81.65 kg, 177.80 cm) ea MDM: 19:59 Patient medically screened. [facility] 21:08 Data reviewed: vital signs, nurses notes, lab test result(s), radiologic studies, CT jr8 scan, and as a result, I will discharge patient. Data interpreted: Pulse oximetry: on room air is 97 %. Interpretation: normal. Counseling: I had a detailed discussion with the patient and/or guardian regarding: the historical points, exam findings, and any diagnostic results supporting the discharge/admit diagnosis, lab results, radiology results, the need for outpatient follow up, a dentist, to return to the emergency department if symptoms worsen or persist or if there are any questions or concerns that arise at home. Response to treatment: the patient's symptoms have mildly improved after treatment. 06/10 20:07 Order name: CBC with Diff; Complete Time: 21:08 [facility] 06/10 20:07 Order name: Basic Metabolic Panel; Complete Time: 20:57 8 06/10 20:07 Order name: CT Facial Bones W/ Con \T\ Mpr; Complete Time: 21:08 [facility] 06/10 20:55 Order name: CREATININE WHOLE BLOOD; Complete Time: 20:57 EDMS 06/10 20:07 Order name: IV; Complete Time: 20:21 Administered Medications: 20:35 Drug: fentaNYL (PF) 50 mcg Route: IVP; Site: right upper arm; mt2 21:00 Follow up: Response: No adverse reaction; Pain is increased mt2 20:35 Drug: Zofran (Ondansetron) 4 mg Route: IVP; Site: right upper arm; mt2 21:05 Follow up: Response: No adverse reaction; Nausea is decreased mt2 21:35 Drug: TORadol 30 mg Route: IVP; Site: right upper arm; mt2 22:00 Follow up: Response: No adverse reaction; Pain is decreased mt2 21:35 Drug: Dilaudid 1 mg Route: IVP; Site: right upper arm; mt2 22:00 Follow up: Response: No adverse reaction; Pain is decreased mt2 21:35 Drug: Rocephin 1 grams Route: IV; Rate: calculated rate; Site: right upper arm; mt2 21:45 Follow up: Response: No adverse reaction; IV Status: Completed infusion mt2 Disposition: 22:54 Co-signature as Attending Physician, Michael Angeles MD. rn Disposition: 06/10/20 22:03 Discharged to Home. Impression: Periapical abscess without sinus. - Condition is Stable. - Discharge Instructions: Dental Abscess, Dental Pain. - Prescriptions for Augmentin 875- 125 mg Oral Tablet - take 1 tablet by ORAL route every 12 hours for 10 days; 20 tablet. tramadol 200 mg Oral capsule,ER biphase 24 hr 25- 75 - take 1 capsule by ORAL route once daily; 8 capsule. - Medication Reconciliation Form, Thank You Letter, Antibiotic Education, Prescription Opioid Use form. - Follow up: Micheal Mas DDS; When: 1 - 2 days; Reason: Recheck today's complaints, Continuance of care, Re-evaluation by your physician. - Problem is new. - Symptoms have improved. Signatures: Dispatcher [employer] EDMS Michael Angeles MD MD rn Roszak, Josh, PA PA jr8 Nita Lima RN RN ea Toscano, Marlene, RN RN mt2 Corrections: (The following items were deleted from the chart) 21:11 20:57 Head/face: Noted is tenderness, that is mild, of the left cheek, jr8 jr8 22:26 22:03 06/10/2020 22:03 Discharged to Home. Impression: Periapical abscess without mt2 sinus. Condition is Stable. Forms are Medication Reconciliation Form, Thank You Letter, Antibiotic Education, Prescription Opioid Use. Follow up: Micheal Mas; When: 1 - 2 days; Reason: Recheck today's complaints, Continuance of care, Re-evaluation by your physician. Problem is new. Symptoms have improved. jr8
[2020-06-10 22:42] VITALS: TEMP 98.9
[2020-06-10 22:44] VITALS: BP 105/66; O2SAT 100
== END 2020-06-10 22:26 | disposition home or self-care (01) ==
LOC: ER 19:30
DX: K04.7 Periapical abscess without sinus (principal); I12.9 Hypertensive chronic kidney disease with stage 1 through stage 4 chronic kidney disease, or unspecified chronic kidney disease; N18.9 Chronic kidney disease, unspecified; Z88.5 Allergy status to narcotic agent; Z87.891 Personal history of nicotine dependence
CPT/HCPCS: 85025; 80048; 36415; 82565; 70487; 76377; Q9967; J3010; J1170; J0696; J2405; 96374; 96375; 99284

== ENCOUNTER 2020-11-10 07:55 | Emergency (ER) | payer OTHER ==
--- OUTSIDE RECORDS SUMMARY | 2020-11-10 07:57 | XMS REPORT | Summary of Care ---
:1985 Author Organization [facility] - Health Address [address] [place], [place] [id number] Care Team Providers Name Role Phone Hari Jailyn Primary Care Provider Encounter Details Date Type Department Care Team Description 08/27/2020 Orders Only [facility] Doctor Unassigned, No [address] [facility] Name [place] [phone] Allergies Active Allergy Reactions Severity Noted Date Comments Codeine Rash 05/01/2015 documented as of this encounter (statuses as of 08/27/2020) Medications Medication Sig Dispensed Refills Start Date End Date Status esomeprazole (NEXIUM) 40 Take 40 mg by 0 Active mg capsule mouth daily. omega-3 fatty Take 2 g by 0 Acti ve acids-vitamin E (FISH mouth 2 (two) OIL) 1,000 mg capsule times daily. niacin 500 mg tablet Take 1,000 mg by 0 Active mouth 2 (two) times daily. carvedilol 6.25 mg 0 02/22/2018 Active tablet ibuprofen 600 mg tablet 0 03/20/2018 Active omeprazole 40 mg capsule 0 04/11/2018 Active pravastatin 40 mg tablet 0 03/22/2018 Active documented as of this encounter (statuses as of 08/27/2020) Active Problems Problem Noted Date Acute renal failure (ARF) 05/05/2015 Renal failure 05/01/2015 documented as of this encounter (statuses as of 08/27/2020) Social History Tobacco Use Types Packs/Day Years Used Date Current Every Day Smoker Smokeless Tobacco: Never Used Alcohol Use Drinks/Week oz/Week Comments No Sex Assigned at Date Recorded Not on file documented as of this encounter Last Filed Vital Signs Not on filedocumented in this encounter Plan of Treatment Health Maintenance Due Date Last Done Comments VARICELLA VACCINES (1 of 2 - 01/24/1988 2-dose childhood series) Depression Screening 1999 DTaP,Tdap,and Td Vaccines (1 - 2006 Tdap) INFLUENZA VACCINE (#1) 2020 PNEUMOCOCCAL 0-64 YEARS COMBINED Aged Out No longer eligible based on SERIES patient's age to complete this topic documented as of this encounter Procedures Procedure Name Priority Date/Time Associated Diagnosis Comme nts EXTERNAL PROVIDER Routine 08/27/2020 12:01 AM CDT RECORDS documented in this encounter Results Not on filedocumented in this encounter Insurance Payer Benefit Plan / Subscriber ID Effective Dates Phone Addre ss Type Group [facility] [id number] 2017-Present Medicaid COMM PLAN - PLUS MANAGED MEDICAID documented as of this encounter
--- OUTSIDE RECORDS SUMMARY | 2020-11-10 07:57 | XMS REPORT | Summary of Care ---
:1985 Author Organization [facility] - [facility] Address [address] [place], [place] [address] Care Team Providers Name Role Phone Hari Jailyn Primary Care Provider Reason for Visit Reason Comments Results Encounter Details Date Type Department Care Team Description 09/08/2020 Telephone [facility]ESS [facility] Yoselin Vang, RN Results [address] [phone] [place] [address] Allergies Active Allergy Reactions Severity Noted Date Comments Codeine Rash 05/01/2015 documented as of this encounter (statuses as of 09/08/2020) Medications Medication Sig Dispensed Refills Start Date [...] as of this encounter (statuses as of 09/08/2020) Active Problems Problem Noted Date Acute renal failure (ARF) 05/05/2015 Renal failure 05/01/2015 documented as of this encounter (statuses as of 09/08/2020) Social History Tobacco Use Types Packs/Day Years Used Date Current Every Day Smoker Smokeless Tobacco: Never Used Alcohol Use Drinks/Week oz/Week Comments No Sex Assigned at Date Recorded Not on file documented as of this encounter Last Filed Vital Signs Not on filedocumented in this encounter Miscellaneous Notes Telephone Encounter - Yoselin Vang RN - 09/08/2020 11:04 PM CSTCamcraig Hawthorne is a 35 year old male who tested negative for Covid-19. Letter sent with the following information. Your COVID 19 testing results were negative. At this time, the COVID 19 virus was NOT found in your sample. Continue to protect yourself by wearing a facemask and washing your hands frequently. If youhave not had symptoms, you may return to work immediately. If you had symptoms, you may return to work or school when you are feeling better and have not had a fever for 24 hours or more without takingfever reducing medications such as acetaminophen or ibuprofen and are 10 days from your first symptoms. Wear a mask until it has been greater than 14 days from when your first symptoms appeared. If you are a [facility] or contract employee or student, please refer to this website for more information https: //[email or web address]. If you feel you are not getting better, please call the Access Center at [phone] or toll free to schedule a telehealth visit or face to face visit with a provider. Most acute illnesses resolve within 7 days. [facility] Triage Nurse documented in this encounter Plan of Treatment Date Type Specialty Care Team Description 09/10/2020 Office Visit Orthopedic Surgery Gudelia Charles MD [address] [place] [address] [phone] Health Maintenance Due Date Last Done Comments VARICELLA VACCINES (1 of 2 - 01/24/1988 2-dose childhood series) Depression Screening 1999 DTaP,Tdap,and Td Vaccines (1 - 2006 Tdap) INFLUENZA VACCINE (#1) 2020 PNEUMOCOCCAL 0-64 YEARS COMBINED Aged Out No longer eligible based on SERIES patient's age to complete this topic documented as of this encounter Results Not on filedocumented in this encounter Additional Health Concerns Infection Onset Date Last Indicated Resolved Time COVID-19 Rule Out 09/07/2020 09/07/2020 09/08/2020 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
--- OUTSIDE RECORDS SUMMARY | 2020-11-10 07:57 | XMS REPORT | Summary of Care ---
:1985 Author Organization [facility] - [facility] Address [address] [place] [address] Care Team Providers Name Role Phone Hari Jailyn Primary Care Provider Reason for Visit Reason Comments Fatigue Shortness of Breath Body Aches Encounter Details Date Type Department Care Team Description 09/07/2020 Laboratory Only [facility] Adult Unknown, Attending E xposure to Urgent Care, Nurse, [facility] Adult Urgent SARS-associated [place] coronavirus (Primary [address] Dx) [place] [address] Allergies Active Allergy Reactions Severity Noted Date Comments Codeine Rash 05/01/2015 documented as of this encounter (statuses as of 09/07/2020) Medications Medication Sig Dispensed Refills Start Date [...] as of this encounter (statuses as of 09/07/2020) Active Problems Problem Noted Date Acute renal failure (ARF) 05/05/2015 Renal failure 05/01/2015 documented as of this encounter (statuses as of 09/07/2020) Social History Tobacco Use Types Packs/Day Years Used Date Current Every Day Smoker Smokeless Tobacco: Never Used Alcohol Use Drinks/Week oz/Week Comments No Sex Assigned at Date Recorded Not on file documented as of this encounter Last Filed Vital Signs Vital Sign Reading Time Taken Comments Blood Pressure - - Pulse - - Temperature - - Respiratory Rate 20 09/07/2020 3:00 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 Verbal consent obtained to perform test. CDC Fact Sheet for Patients nCoV Diagnostic Panel dated 01/20/2020 provided. Patient swabbed per appropriate nasopharyngeal technique, and patient tolerated well. Patient was discharged from the testing room in stable condition. All droplet and contact precautions taken with appropriate PPE worn while interacting with patient. - Goggles - Mask - Gloves - Gown - N95 Mask Resp 20 | SpO2 99% Lillie Lundberg 09/07/2020 5:39 PM documented in this encounter Plan of Treatment Date Type Specialty Care Team Description 09/10/2020 Office Visit Orthopedic Surgery Gudelia Charles MD [address] [phone] Name Type Priority Associated Diagnoses Order S chedule COVID-19 ([facility] Routine Exposure to Exp ected: 09/07/2020, TESTING) SARS-associated Expires: 11/2020 coronavirus Health Maintenance Due Date Last Done Comments VARICELLA VACCINES (1 of 2 - 01/24/1988 2-dose childhood series) Depression Screening 1999 DTaP,Tdap,and Td Vaccines (1 - 2006 Tdap) INFLUENZA VACCINE (#1) 2020 PNEUMOCOCCAL 0-64 YEARS COMBINED Aged Out No longer eligible based on SERIES patient's age to complete this topic documented as of this encounter Results Not on filedocumented in this encounter Visit Diagnoses Diagnosis Exposure to SARS-associated coronavirus - Primary documented in this encounter Additional Health Concerns Infection Onset Date Last Indicated Resolved Time COVID-19 Rule Out 09/07/2020 09/07/2020 documented as of this encounter Insurance Payer Benefit Plan / Subscriber ID Effective Dates Phone Addre ss Type Group [facility] [id number] 2017-Present Medicaid COMM PLAN - PLUS MANAGED MEDICAID (Work) documented as of this encounter"
--- OUTSIDE RECORDS SUMMARY | 2020-11-10 07:57 | XMS REPORT | Summary of Care ---
:1985 Author Organization [facility] - [facility] Address [address] [place] [address] Care Team Providers Name Role Phone Jailyn Rodriguez Primary Care Provider Reason for Visit Reason Comments New Patient Right Shoulder Bone Spur (Routine) Status Reason Specialty Diagnoses / Referred By Referred To Procedures Contact Contact Closed Orthopedic Surgery Diagnoses Pain in right shoulder Mauro Rodriguez-Orthopedic Procedures CONSULT/REFERRAL ORTHOPAEDIC SURGERY Salina Glaser [address] [facility] [address] [facility] [address] [place] Phone: [phone] Phone: Encounter Details Date Type Department Care Team Description 09/10/2020 Office Visit [facility] Orthopaedic George Charles hronic right shoulder Surgery- Angel Luciano MD pain (Primary Dx) [address], [address] [place] [address] [place], [place] [phone] Allergies Active Allergy Reactions Severity Noted Date Comments Codeine Rash 05/01/2015 documented as of this encounter (statuses as of 09/10/2020) Medications Medication Sig Dispensed Refills Start Date [...] as of this encounter (statuses as of 09/10/2020) Active Problems Problem Noted Date Acute renal failure (ARF) 05/05/2015 Renal failure 05/01/2015 documented as of this encounter (statuses as of 09/10/2020) Social History Tobacco Use Types Packs/Day Years Used Date Former Smoker Smokeless Tobacco: Never Used Alcohol Use Drinks/Week oz/Week Comments Yes occasionally Sex Assigned at Date Recorded Not on file COVID-19 Exposure Response Date Recorded In the last month, have you been in contact with No / Unsure 09/10/2020 2:19 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 documented as of this encounter Last Filed Vital Signs Vital Sign Reading Time Taken Comments Blood Pressure 124/78 09/10/2020 2:22 PM ACADEMIC DEAN Pulse 92 09/10/2020 2:22 PM ACADEMIC DEAN Temperature - - Respiratory Rate 16 09/10/2020 2:22 PM ACADEMIC DEAN Oxygen Saturation - - Inhaled Oxygen Concentration - - Weight 90.7 kg (200 lb) 09/10/2020 2:22 PM ACADEMIC DEAN Height 177.8 cm (5' 10") 09/10/2020 2:22 PM ACADEMIC DEAN Body Mass Index 28.7 09/10/2020 2:22 PM ACADEMIC DEAN documented in this encounter Progress Notes George Charles MD - 09/10/2020 2:15 PM CST Cc: Chief Complaint Patient presents with New Patient Right Shoulder Bone Spur Right Shoulder Bone Spur Zuhair Hawthorne is a 35 year old male. Shoulder Pain The pain is present in the right shoulder. This is a recurrent problem. There has been no history ofextremity trauma. The problem occurs daily. The quality of the pain is described as aching. The painis at a severity of 3/10. The pain is mild. Associated symptoms include a limited range of motion. The symptoms are aggravated by activity. He has tried NSAIDS, rest and acetaminophen for the symptoms. Allergies Zuhair is allergic to codeine. Medications Outpatient Medications Prior to Visit Medication Sig Dispense Refill ibuprofen 600 mg tablet omeprazole 40 mg capsule niacin 500 mg tablet Take 1,000 mg by mouth 2 (two) times daily. omega-3 fatty acids-vitamin E (FISH OIL) 1,000 mg capsule Take 2 g by mouth 2 (two) times daily. carvedilol 6.25 mg tablet pravastatin 40 mg tablet esomeprazole (NEXIUM) 40 mg capsule Take 40 mg by mouth daily. Facility-Administered Medications Prior to Visit Medication Dose Route Frequency Provider Last Rate Last Admin sbvuftbzste-iaifjlxartj-ud (SENSORCAINE W/EPINEPHRINE) 0.25 %-1:200,000 injection PRN George Charles MD 30 mL at 05/08/18 1315 Histories Past Medical History: Diagnosis Date Back pain Esophageal reflux Hypertension taken off medication by physician possibly due to causing kidney problems Other and unspecified hyperlipidemia Tachycardia Past Surgical History: Procedure Laterality Date CIRCUMCISION CYST EXCISION Cyst excision from testicle KNEE ARTHROSCOPY Left 05/08/2018 Surgeon: George Charles MD; Location: [facility] OR Location LUMBAR EPIDURAL STEROID INJECTION N/A 07/21/2015 Surgeon: Cordell Cruz MD; Location: [facility] OR LOCATION LUMBAR EPIDURAL STEROID INJECTION N/A 07/28/2015 Surgeon: Cordell Cruz MD; Location: [facility] OR LOCATION VASECTOMY Social History Socioeconomic History Marital status: Single Spouse name: Not on file Number of children: Not on file Years of education: Not on file Highest education level: Not on file Occupational History Not on file Social Needs Financial resource strain: Not on file Food insecurity Worry: Not on file Inability: Not on file Transportation needs Medical: Not on file Non-medical: Not on file Tobacco Use Smoking status: Former Smoker Smokeless tobacco: Never Used Substance and Sexual Activity Alcohol use: Yes Comment: occasionally Drug use: No Sexual activity: Yes Partners: Female Lifestyle Physical activity Days per week: Not on file Minutes per session: Not on file Stress: Not on file Relationships Social connections Talks on phone: Not on file Gets together: Not on file Attends hindu service: Not on file Active member of club or organization: Not on file Attends meetings of clubs or organizations: Not on file Relationship status: Not on file Intimate partner violence Fear of current or ex partner: Not on file Emotionally abused: Not on file Physically abused: Not on file Forced sexual activity: Not on file Other Topics Concern Not on file Social History Narrative Lives alone with son Family History Problem Relation Age of Onset Cancer Mother Hypertension Mother Review of Systems Constitutional: Negative. HENT: Negative. Eyes: Negative. Respiratory: Negative. Breasts: Negative. Cardiovascular: Negative. Gastrointestinal: Negative. Genitourinary: Negative. Musculoskeletal: Positive for joint swelling. Skin: Negative. Neurological: Negative. Psychiatric/Behavioral: Negative. Endocrine: Endocrine negative Vital Signs BP 124/78 (BP Location: Left arm, Patient Position: Sitting, BP CUFF SIZE: Adult Medium) | Pulse 92 | Resp 16 | Ht 70" (177.8 cm) | Wt 90.7 kg (200 lb) | BMI 28.70 kg/m Physical Exam Musculoskeletal: Right shoulder: He exhibits decreased range of motion, pain and decreased strength. Comments: Positive Neer Positive Joao General: Well-developed well-nourished oriented to person place and time HEENT normocephalic atraumatic atraumatic pupils equal round reactive to light extraocular muscles intact Cervical thoracic and lumbar spine without focal deficit normal kyphosis and lordosis Chest clear to auscultation and percussion Cardiovascular regular rate and rhythm without gallop rub or murmur soft without organomegaly Normal bowel sounds Neurologic: Focal myotome or dermatomal deficits Vascular: Intact symmetrical bilateral upper and lower extremities Skin without stasis varicosities or breakdown Extremities without cyanosis clubbing or edema Lymphatics no peripheral lymphedema Psych normal mood and affect. Neurovascular function is intact. To include brisk capillary refill warm pink skin active motor function and sensory function intact. Name: ZUHAIR HAWTHORNE Acct Number: [id number] : 1985 Age: 35 Sex: M Unit Number: [id number] Ord Phys: PABLO RODRIGUEZ [facility] Dr: Status: REG REF RAD Exam Date: 07/21/20 Reason for Exam: M25.511 Report Status: Signed EXAM DESCRIPTION: RAD - Shoulder Right 2 View - 07/21/2020 4:38 pm CLINICAL HISTORY: M25.511 COMPARISON: No comparisons FINDINGS: Mild AC joint degenerative changes present with inferiorly projecting osteophyte. No fracture, dislocation or aggressive marrow lesion. If further assessment of the rotator cuff is clinically desired, suggest followup MR shoulder. Dictated By: Saad Bourgeois MD 07/21/201704 Signed By: Saad Bourgeois MD 07/21/201704 Tire Trucker: ABDOUL 07/21/201704 Assessment/Plan Right shoulder pain MRI of the right shoulder Follow up to discuss results and treatment plan. documented in this encounter Plan of Treatment Health [...] filedocumented in this encounter Visit Diagnoses Diagnosis Chronic right shoulder pain - Primary Pain in joint, shoulder region documented in this encounter Insurance Payer Benefit Plan / Subscriber ID Effective Dates Phone Addre ss Type Group [facility] [id number] 2017-Present Medicaid COMM PLAN - PLUS MANAGED MEDICAID (Work) documented as of this encounter
--- OUTSIDE RECORDS SUMMARY | 2020-11-10 07:57 | XMS REPORT | Summary of Care ---
:1985 Author Organization [facility] - Health Address [address] [place] [address] Care Team Providers Name Role Phone Hari Jailyn Primary Care Provider Encounter Details Date Type Department Care Team Description 08/15/2020 Orders Only [facility] Doctor Unassigned, No [address] [facility] Name [place] [phone] Allergies Active Allergy Reactions Severity Noted Date [...] Name Priority Date/Time Associated Diagnosis Comme nts REFERRAL- Routine 08/15/2020 12:01 AM CDT REQUEST/RESPONSE documented in this encounter Results Not on filedocumented in this encounter Insurance Payer Benefit Plan / Subscriber ID Effective Dates Phone Addre ss Type Group [facility] [id number] 2017-Present Medicaid COMM PLAN - PLUS MANAGED MEDICAID documented as of this encounter
--- OUTSIDE RECORDS SUMMARY | 2020-11-10 07:57 | XMS REPORT | Summary of Care ---
:1985 Author Organization [facility] Address [address] [place] [address] Care Team Providers Name Role Phone Jailyn Rodriguez Primary Care Provider Reason for Visit Reason Comments New Patient Right Shoulder Bone Spur (Routine) Status Reason Specialty Diagnoses / Referred By Referred To Procedures Contact Contact Closed Orthopedic Surgery Diagnoses Pain in right shoulder Mauro Rodriguez-Orthopedic Procedures CONSULT/REFERRAL ORTHOPAEDIC SURGERY Salina Glaser [address] [facility] [address] [facility] [address] [place] Phone: [phone] Phone: Encounter Details Date Type Department Care Team Description 09/10/2020 Office Visit [facility] Orthopaedic George Charles hronic right shoulder Surgery- Angel Luciano MD pain (Primary Dx) [address], [address] [place] [address] [place], [place] [phone] Allergies Active Allergy Reactions Severity Noted [...] with No / Unsure 09/10/2020 2:19 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 documented in this encounter Progress Notes George [...] Route Frequency Provider Last Rate Last Admin betbojrdreu-csmycybaotq-ce (SENSORCAINE W/EPINEPHRINE) 0.25 %-1:200,000 injection PRN George Charles MD 30 mL at 05/08/18 1315 Histories Past Medical History: Diagnosis Date Back pain Esophageal reflux Hypertension taken off medication by physician possibly due to causing kidney problems Other and unspecified hyperlipidemia Tachycardia Past Surgical History: Procedure Laterality Date CIRCUMCISION CYST EXCISION Cyst excision from testicle KNEE ARTHROSCOPY Left 05/08/2018 Surgeon: George Charles MD; Location: [facility] OR Location LUMBAR EPIDURAL STEROID INJECTION N/A 07/21/2015 Surgeon: Cordell Cruz MD; Location: [facility] OR LOCATION LUMBAR EPIDURAL STEROID INJECTION N/A 07/28/2015 Surgeon: Cordell Cruz MD; Location: [facility] OR LOCATION VASECTOMY Social History Socioeconomic History [...] file Gets together: Not on file Attends protestant service: Not on file Active member of [...] function intact. Name: ZUHAIR HAWTHORNE Acct Number: [id number] : 1985 Age: 35 Sex: M Unit Number: [id number] Ord Phys: PABLO RODRIGUEZ [facility] Dr: Status: REG REF RAD Exam Date: [...] 07/21/201704 Signed By: Saad Bourgeois MD 07/21/201704 Deck Engine Operator: ABDOUL 07/21/201704 Assessment/Plan Right shoulder pain MRI [...] Effective Dates Phone Addre ss Type Group [facility] [id number] 2017-Present Medicaid COMM PLAN - PLUS MANAGED MEDICAID (Work) documented as of this encounter
--- OUTSIDE RECORDS SUMMARY | 2020-11-10 07:58 | XMS REPORT | Summary of Care ---
:1985 Author Organization [facility] Address [address] [place] [address] Care Team Providers Name Role Phone Jailyn Noriega Primary Care Provider Reason for Referral MRI/CAT Scan (Routine) Status Reason Specialty Diagnoses / Referred By Referred To Procedures Contact Contact Closed Diagnostic Diagnoses Chronic right shoulder pain George Charles Radiology Procedures MR SHOULDER RIGHT WO CONTRAST MD Ankita [address] [place] [address] Reason for Visit MRI/CAT Scan (Routine) Status Reason Specialty Diagnoses / Referred By Referred To Procedures Contact Contact Closed Diagnostic Diagnoses Chronic right shoulder pain George Charles Radiology Procedures MR SHOULDER RIGHT WO CONTRAST MD Ankita [address] [place] [address] Encounter Details Date Type Department Care Team Description 09/29/2020 Hospital Encounter [facility] Jailyn Charles, [facility] MRI [address] [facility] [address] [place], [place] [address] [address] [place], [place] [phone] Allergies Active Allergy Reactions Severity Noted Date Comments Codeine Rash 05/01/2015 documented as of this encounter (statuses as of 09/30/2020) Medications Medication Sig Dispensed Refills Start Date [...] as of this encounter (statuses as of 09/30/2020) Active Problems Problem Noted Date Acute renal failure (ARF) 05/05/2015 Renal failure 05/01/2015 documented as of this encounter (statuses as of 09/30/2020) Social History Tobacco Use Types Packs/Day Years Used Date Former Smoker Smokeless Tobacco: Never Used Alcohol Use Drinks/Week oz/Week Comments Yes occasionally Sex Assigned at Date Recorded Not on file COVID-19 Exposure Response Date Recorded In the last month, have you been in contact with No / Unsure 09/29/2020 8:06 AM 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 documented in this encounter Results MR SHOULDER RIGHT WO CONTRAST (09/29/2020 8:52 AM APPLIED MARINE PHYSICS PROFESSOR) Specimen Impressions Performed At PACS/VR/DOSE Interstitial tearing of the supraspinatu s tendon with questionable articular surface extension with underlying humeral he ad/greater tuberosity edema. Mild tenosynovitis of the biceps tendon with questiona ble intra-articular medialization which may be seen with a b iceps charissa lesion. Mild subacromial/subdeltoid bursitis. Preliminary Report Dictated by Resident: Susan Escalona I, Manolo Nazario MD., have reviewed this study and a gree with the above report. Narrative Performed At EXAM: PACS/VR/DOSE MRI RIGHT SHOULDER WITHOUT CONTRAST COMPARISON: Comparative chest radiograph 05/01/2015 HISTORY: Shoulder pain, acute, persistent, xray a nd exam nonspecific TECHNIQUE AND FINDINGS: 1.5T multiplanar multiweighted MR imagin g of the right shoulder was performed without contrast. BONE AND JOINT: A heterogenous background bone marrow signal is noted. There is mild edema at the level of the humeral head greater tuberosity. Acromion morphology is type 2. An os acr omiale is present with minimal surrounding edema. No abnormality is seen at the level of t he acromioclavicular joint. The labrum and biceps labral anchor are inta ct. LIGAMENTS AND TENDONS: There is hyperintense T2 signal seen wit hin the interstitium of the supraspinatus tendon humeral insertion with questionab le articular surface extension. The remaining rotator cuff te ndons are unremarkable. Minimal fluid surrounds the biceps tendon within the sulcus with minimal medialization of the proximal biceps ten don which appears to sublux into the substance of the superior subscapula ris tendon SOFT TISSUES: No muscle atrophy is identified. No soft tissue masses are appreciated. M inimal fluid is seen within the subacromial/subdeltoid bursa. Procedure Note [facility], Radiant Results Inft User - 2019 2:27 PM APPLIED MARINE PHYSICS PROFESSOR EXAM: MRI RIGHT SHOULDER WITHOUT CONTRAST COMPARISON: Comparative chest radiograph 05/01/2015 HISTORY: Shoulder pain, acute, persistent, xray a nd exam nonspecific TECHNIQUE AND FINDINGS: 1.5T multiplanar multiweighted MR imagin g of the right shoulder was performed without contrast. BONE AND JOINT: A heterogenous background bone marrow si gnal is noted. There is mild edema at the level of the humeral head greater tuberosity. Acromion morphology is type 2. An os acr omiale is present with minimal surrounding edema. No abnormality is seen at the level of t he acromioclavicular joint. The labrum and biceps labral anchor are inta ct. LIGAMENTS AND TENDONS: There is hyperintense T2 signal seen wit hin the interstitium of the supraspinatus tendon humeral insertion w ith questionable articular surface extension. The remaining rotator cuff te ndons are unremarkable. Minimal fluid surrounds the biceps tendon within the sulcus with minimal medialization of the proximal biceps ten don which appears to sublux into the substance of the superior subscapula ris tendon SOFT TISSUES: No muscle atrophy is identified. No soft tissue masses are appreciated. M inimal fluid is seen within the subacromial/subdeltoid bursa. IMPRESSION Interstitial tearing of the supraspinatu s tendon with questionable articular surface extension with underly ing humeral head/greater tuberosity edema. Mild tenosynovitis of the biceps tendon with questionable intra-articular medialization which may be seen with a b iceps charissa lesion. Mild subacromial/subdeltoid bursitis. Preliminary Report Dictated by Resident: Susan Escalona I, Manolo Nazario MD., have reviewed th is study and agree with the above report. Performing Organization Address City/State/Zipcode Phone Number PACS/VR/DOSE documented in this encounter Visit Diagnoses Diagnosis Chronic right shoulder pain Pain in joint, shoulder region documented in this encounter Insurance Payer Benefit Plan / Subscriber ID Effective Dates Phone Addre ss Type Group [facility] [id number] 2017-Present Medicaid COMM PLAN - PLUS MANAGED MEDICAID [id number] (Home) ROSALBA WRIGHT [phone] [id number] (Work) documented as of this encounter
--- OUTSIDE RECORDS SUMMARY | 2020-11-10 07:58 | XMS REPORT | Summary of Care ---
:1985 Author Organization [facility] Address [address] [place], [place] [id number] Care Team Providers Name Role Phone Hari Jailyn Primary Care Provider Encounter Details Date Type Department Care Team Description 09/18/2020 Orders Only [facility] Doctor Unassigned, No [address] [facility] Name [place] [phone] Allergies Active Allergy Reactions Severity Noted Date Comments Codeine Rash 05/01/2015 documented as of this encounter (statuses as of 09/18/2020) Medications Medication Sig Dispensed Refills Start Date [...] as of this encounter (statuses as of 09/18/2020) Active Problems Problem Noted Date Acute renal failure (ARF) 05/05/2015 Renal failure 05/01/2015 documented as of this encounter (statuses as of 09/18/2020) Social History Tobacco Use Types Packs/Day Years Used Date Former Smoker Smokeless Tobacco: Never Used Alcohol Use Drinks/Week oz/Week Comments Yes occasionally Sex Assigned at Date Recorded Not on file COVID-19 Exposure Response Date Recorded In the last month, have you been in contact with No / Unsure 09/15/2020 12:47 PM 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 documented as of this encounter Last Filed Vital Signs Not on filedocumented in this encounter Plan of Treatment Date Type Specialty Care Team Description 09/29/2020 Appointment Radiology George Charles MD [address] [place] [address] [phone] Health Maintenance Due Date Last Done [...] Date/Time Associated Diagnosis Comme nts REFERRAL- Routine 09/18/2020 12:01 AM RECREATION COUNSELOR REQUEST/RESPONSE documented in this encounter Results Not on filedocumented in this encounter Insurance Payer Benefit Plan / Subscriber ID Effective Dates Phone Addre ss Type Group [facility] STAR [id number] 2017-Present Medicaid COMM PLAN - PLUS MANAGED MEDICAID documented as of this encounter
--- OUTSIDE RECORDS SUMMARY | 2020-11-10 07:58 | XMS REPORT | Summary of Care ---
:1985 Author Organization [facility] Address [address] [place] [address] Care Team Providers Name Role Phone Hari Jailyn Primary Care Provider Reason for Visit Reason Comments Results MRI Encounter Details Date Type Department Care Team Description 10/14/2020 Telephone [facility] Orthopaedic George Charles MD Results (MRI) Surgery- [place] [address], [place] [address] [place], [place] [phone] Allergies Active Allergy Reactions Severity Noted Date Comments Codeine Rash 05/01/2015 documented as of this encounter (statuses as of 10/21/2020) Medications Medication Sig Dispensed Refills Start Date [...] as of this encounter (statuses as of 10/21/2020) Active Problems Problem Noted Date Acute renal failure (ARF) 05/05/2015 Renal failure 05/01/2015 documented as of this encounter (statuses as of 10/21/2020) Social History Tobacco Use Types Packs/Day Years Used Date Former Smoker Smokeless Tobacco: Never Used Alcohol Use Drinks/Week oz/Week Comments Yes occasionally Sex Assigned at Date Recorded Not on file COVID-19 Exposure Response Date Recorded In the last month, have you been in contact with No / Unsure 09/29/2020 8:06 AM 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 documented as of this encounter Last Filed Vital Signs Not on filedocumented in this encounter Miscellaneous Notes Telephone Encounter - Aby Mazariegos - 10/21/2020 12:21 PM CSTPatient has been scheduled on 10/23/2020 at 3:45PM. elephone Encounter - Stefanie Forte MA - 10/14/2020 2:50 PM CSTPlease schedule appointment to come in and discuss results. Stefanie Forte 10/14/2020 2:51 PM elephone Encounter - Bong Charles PAC - 10/14/2020 1:19 PM CSTThere are tears come in for follow-up elephone Encounter - Mikala Sellers - 10/14/2020 1:10 PM CSTZuhair Hawthorne is a 35 year old male Patient called requesting MRI results elephone Encounter - Stefanie Forte MA - 10/14/2020 11:55 AM CSTPlease schedule appointment to discuss MRI results and treatment options. Stefanie Forte 10/14/2020 11:55 AM elephone Encounter - Btetie Asencio - 10/14/2020 10:39 AM CSTZuhair Hawthorne is a 35 year old male Patient is calling requesting to speak with nurse regarding MRI results. Please contact at [phone] (home) [phone] (work) documented in this encounter Plan of Treatment Date Type Specialty Care Team Description 10/23/2020 Office Visit Orthopedic Surgery Gudelia Charles MD [address] [place] [phone] Health Maintenance Due Date Last Done [...] Effective Dates Phone Addre ss Type Group [facility] [id number] 2017-Present Medicaid COMM PLAN - PLUS MANAGED MEDICAID documented as of this encounter
--- OUTSIDE RECORDS SUMMARY | 2020-11-10 07:58 | XMS REPORT | Summary of Care ---
:1985 Author Organization [facility] Address [address] [place] [address] Care Team Providers Name Role Phone Jailyn Noriega Primary Care Provider Reason for Referral MRI/CAT Scan (Routine) Status Reason Specialty Diagnoses / Referred By Referred To Procedures Contact Contact New Request Diagnostic Diagnoses Chronic right shoulder pain George Charles Radiology Procedures MR SHOULDER RIGHT WO CLAUDIA Luciano MD [address] [place] [address] Reason for Visit Reason Comments Orders Right Shoulder MRI Encounter Details Date Type Department Care Team Description 09/12/2020 Telephone [facility] Orthopaedic George Charles O emily (Right Shoulder Surgery- Angel Luciano MD MRI ) [address] [facility], [address] [facility] [address] [place] [address] [place], [place] [phone] Allergies Active Allergy Reactions Severity Noted Date Comments Codeine Rash 05/01/2015 documented as of this encounter (statuses as of 09/12/2020) Medications Medication Sig Dispensed Refills Start Date [...] as of this encounter (statuses as of 09/12/2020) Active Problems Problem Noted Date Acute renal failure (ARF) 05/05/2015 Renal failure 05/01/2015 documented as of this encounter (statuses as of 09/12/2020) Social History Tobacco Use Types Packs/Day Years Used Date Former Smoker Smokeless Tobacco: Never Used Alcohol Use Drinks/Week oz/Week Comments Yes occasionally Sex Assigned at Date Recorded Not on file COVID-19 Exposure Response Date Recorded In the last month, have you been in contact with No / Unsure 09/10/2020 2:19 PM 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 documented as of this encounter Last Filed Vital Signs Not on filedocumented in this encounter Miscellaneous Notes Telephone Encounter - Stefanie Forte - 09/12/2020 2:23 PM CSTOrders sent to [facility] Stefanie Forte 09/12/2020 2:32 PM documented in this encounter Plan of Treatment Name Type Priority Associated Diagnoses Order S chedule MR SHOULDER RIGHT WO IMAGING Routine Chronic right should er Expected: 09/12/2020, CONTRAST pain Expires: 2020 Health Maintenance Due Date Last Done Comments [...] / Subscriber ID Effective Dates Phone Addre Type Group [facility] [id number] 2017-Present Medicaid COMM PLAN - PLUS MANAGED MEDICAID documented as of this encounter
[2020-11-10] MEDS ORDERED: predniSONE 20 MG TAB ONE (09:13)
[2020-11-10] MEDS ORDERED: DIPHENHYDRAMINE 25 MG TAB/CAP ONE (09:13)
[2020-11-10] MEDS ORDERED: KETOROLAC 30 MG/ML INJ ONE (09:13)
[2020-11-10] MEDS ORDERED: FAMOTIDINE 20 MG TAB ONE (09:13)
--- NOTE | 2020-11-10 09:29 | ER ---
Nurse's Notes [facility] Name: Zuhair Hawthorne Age: 35 yrs Sex: Male : 1985 Arrival Date: 11/10/2020 Time: 07:57 Bed 7 Private MD: Diagnosis: Allergy, unspecified;Allergy status to narcotic agent status;Allergy status to other drugs, medicaments and biological substances status Presentation: 11/10 08:50 Chief complaint: Patient states: Took Tylenol with codeine last night and woke this jl7 morning with rash all over, itching, feels like throat is getting tight and reports chest pressure. 08:50 Coronavirus screen: Client denies travel out of the [place] in the last 14 days. At this jl7 time, the client does not indicate any symptoms associated with coronavirus-19. Ebola Screen: No symptoms or risks identified at this time. Onset: The symptoms/episode began/occurred gradually. Anaphylaxis evaluation, chest pain. Initial Sepsis Screen: Does the patient meet any 2 criteria? No. Patient's initial sepsis screen is negative. Does the patient have a suspected source of infection? No. Patient's initial sepsis screen is negative. Risk Assessment: Do you want to hurt yourself or someone else? Patient reports no desire to harm self or others. Onset of symptoms was November 10, 2020. Care prior to arrival: Medication(s) given: 25 mg Benadryl PO at 0645 this morning. Transition of care: patient was not received from another setting of care. 08:50 Method Of Arrival: Ambulatory jl7 08:50 Acuity: BRIE 3 jl7 Triage Assessment: 08:50 General: Appears in no apparent distress. uncomfortable, Behavior is calm, cooperative, jl7 appropriate for age. Pain: Complains of pain in anterior aspect of left upper chest and mid-sternal area Pain does not radiate. Pain currently is 5 out of 10 on a pain scale. Quality of pain is described as pressure, Is continuous, Aggravated by breathing. Neuro: Level of Consciousness is awake, alert, obeys commands, Oriented to person, place, time, situation. Cardiovascular: Heart tones present Patient's skin is warm and dry. Respiratory: Airway is patent Respiratory effort is even, unlabored, Respiratory pattern is regular, symmetrical, Breath sounds are clear bilaterally. Derm: Skin is pink, warm \T\ dry. Rash noted that is itchy, red. Historical: - Allergies: 09:20 Codeine (Hives, rash); jl7 - Home Meds: 09:20 pantoprazole Oral [Active]; jl7 - PMHx: 09:20 GERD; Hyperlipidemia; Hypertension; Migraines; RENAL FAILURE; Tachycardia; jl7 - PSHx: 09:20 Knee surgery; jl7 - Immunization history:: Adult Immunizations not up to date. - Social history:: Smoking status: Patient denies any tobacco usage or history of. - Family history:: not pertinent. Screenin:50 Abuse screen: Denies threats or abuse. Denies injuries from another. Nutritional jl7 screening: No deficits noted. Tuberculosis screening: No symptoms or risk factors identified. Fall Risk None identified. Assessment: 08:50 General: See triage assessment. jl7 10:01 Reassessment: Patient appears in no apparent distress at this time. Patient and/or jl7 family updated on plan of care and expected duration. Pain level reassessed. Patient is alert, oriented x 3, equal unlabored respirations, skin warm/dry/pink. Patient states feeling better. Patient states symptoms have improved. Vital Signs: 08:50 BP 120 / 93; Pulse 99; Resp 17; Temp 98.4; Pulse Ox 98% ; Weight 90.72 kg; Height 5 ft. jl7 10 in. (177.80 cm); Pain 5/10; 10:01 BP 105 / 88; Pulse 88; Resp 17; Pulse Ox 100% ; Pain 0/10; jl7 08:50 Body Mass Index 28.70 (90.72 kg, 177.80 cm) jl7 ED Course: 07:57 Patient arrived in ED. rg4 08:08 Yossi Ojeda MD is Attending Physician. lani 08:49 Jesús Sanabria, RN is Primary Nurse. bp 08:50 Arm band placed on right wrist. jl7 08:50 Patient has correct armband on for positive identification. Placed in gown. Bed in low jl7 position. Call light in reach. Side rails up X 1. athletic monitor on. Pulse ox on. NIBP on. 08:54 Primary Nurse role handed off by Jesús Sanabria, LEVI jl7 08:54 Josef Tobar RN is Primary Nurse. jl7 09:19 Triage completed. jl7 09:20 EKG done, by ED staff, reviewed by Yossi Ojeda MD. ds4 :28 Wyatt Freedman MD is Referral Physician. lani :28 Evan Prajapati MD is Referral Physician. lani 10: No provider procedures requiring assistance completed. Patient did not have IV access jl7 during this emergency room visit. Administered Medications: 09:00 Drug: Benadryl 25 mg Route: PO; jl7 10:00 Follow up: Response: No adverse reaction jl7 09:00 Drug: Pepcid 40 mg Route: PO; jl7 10:00 Follow up: Response: No adverse reaction jl7 09:00 Drug: predniSONE 60 mg Route: PO; jl7 10:00 Follow up: Response: No adverse reaction jl7 09:05 Drug: TORadol 60 mg Route: IM; Site: right ventrogluteal; jl7 10:00 Follow up: Response: No adverse reaction; Pain is decreased jl7 Outcome: :28 Discharge ordered by . [facility] 10:01 Discharged to home ambulatory. jl7 10:01 Condition: stable 10:01 Discharge instructions given to patient, Instructed on discharge instructions, follow up and referral plans. medication usage, Demonstrated understanding of instructions, follow-up care, medications, Prescriptions given X 4. 10:04 Patient left the ED. jl7 Signatures: Yossi Ojeda MD MD cha Swanson, Donovan ds4 Peri Nazario rg4 Josef Tobar RN RN jl7 Jesús Sanabria RN RN bp
--- NOTE | 2020-11-10 09:29 | EDPHYS ---
Physician Documentation [facility] Name: Zuhair Hawthorne Age: 35 yrs Sex: Male : 1985 Arrival Date: 11/10/2020 Time: 07:57 Bed 7 Private MD: RHONDA Physician Yossi Ojeda HPI: 11/10 08:54 This 35 yrs old Male presents to ER via Unassigned with complaints of lani Allergic Reaction. 08:54 The patient presents with difficulty swallowing, itching, rash, redness of skin. Onset: lani The symptoms/episode began/occurred 1 day(s) ago. Associated signs and symptoms: Pertinent positives: rash, scratchy throat. Historical: - Allergies: 09:20 Codeine (Hives, rash); jl7 - Home Meds: 09:20 pantoprazole Oral [Active]; jl7 - PMHx: 09:20 GERD; Hyperlipidemia; Hypertension; Migraines; RENAL FAILURE; Tachycardia; jl7 - PSHx: 09:20 Knee surgery; jl7 - Immunization history:: Adult Immunizations not up to date. - Social history:: Smoking status: Patient denies any tobacco usage or history of. - Family history:: not pertinent. ROS: 08:55 Constitutional: Negative for fever, chills, and weight loss, Eyes: Negative for injury, lani pain, redness, and discharge, ENT: Negative for injury, pain, and discharge, Neck: Negative for injury, pain, and swelling, Cardiovascular: Negative for chest pain, palpitations, and edema, Respiratory: Negative for shortness of breath, cough, wheezing, and pleuritic chest pain, Abdomen/GI: Negative for abdominal pain, nausea, vomiting, diarrhea, and constipation, Back: Negative for injury and pain, : Negative for injury, bleeding, discharge, and swelling, MS/Extremity: Negative for injury and deformity, Skin: Negative for injury, rash, and discoloration, Psych: Negative for depression, anxiety, suicide ideation, homicidal ideation, and hallucinations, Allergy/Immunology: Negative for hives, rash, and allergies, Endocrine: Negative for neck swelling, polydipsia, polyuria, polyphagia, and marked weight changes, Hematologic/Lymphatic: Negative for swollen nodes, abnormal bleeding, and unusual bruising. 08:55 Cardiovascular: Positive for chest pain. 08:55 Neuro: Positive for headache. Exam: 08:55 Constitutional: This is a well developed, well nourished patient who is awake, alert, lani and in no acute distress. Head/Face: Normocephalic, atraumatic. Eyes: Pupils equal round and reactive to light, extra-ocular motions intact. Lids and lashes normal. Conjunctiva and sclera are non-icteric and not injected. Cornea within normal limits. Periorbital areas with no swelling, redness, or edema. Neck: Trachea midline, no thyromegaly or masses palpated, and no cervical lymphadenopathy. Supple, full range of motion without nuchal rigidity, or vertebral point tenderness. No Meningismus. Chest/axilla: Normal chest wall appearance and motion. Nontender with no deformity. No lesions are appreciated. Cardiovascular: Regular rate and rhythm with a normal S1 and S2. No gallops, murmurs, or rubs. Normal PMI, no JVD. No pulse deficits. Respiratory: Lungs have equal breath sounds bilaterally, clear to auscultation and percussion. No rales, rhonchi or wheezes noted. No increased work of breathing, no retractions or nasal flaring. Abdomen/GI: Soft, non-tender, with normal bowel sounds. No distension or tympany. No guarding or rebound. No evidence of tenderness throughout. Back: No spinal tenderness. No costovertebral tenderness. Full range of motion. Skin: Warm, dry with normal turgor. Normal color with no rashes, no lesions, and no evidence of cellulitis. MS/ Extremity: Pulses equal, no cyanosis. Neurovascular intact. Full, normal range of motion. Neuro: Awake and alert, GCS 15, oriented to person, place, time, and situation. Cranial nerves II-XII grossly intact. Motor strength 5/5 in all extremities. Sensory grossly intact. Cerebellar exam normal. Normal gait. Psych: Awake, alert, with orientation to person, place and time. Behavior, mood, and affect are within normal limits. 08:55 ENT: Posterior pharynx: Tonsils: are normal in appearance, Uvula: normal, midline, non-edematous, no erythema, swelling, that is mild, erythema, that is mild, exudate, is not appreciated, peritonsillar mass, is not appreciated. 09:25 ECG was reviewed by the Attending Physician. [facility] Vital Signs: 08:50 BP 120 / 93; Pulse 99; Resp 17; Temp 98.4; Pulse Ox 98% ; Weight 90.72 kg; Height 5 ft. jl7 10 in. (177.80 cm); Pain 5/10; 10:01 BP 105 / 88; Pulse 88; Resp 17; Pulse Ox 100% ; Pain 0/10; jl7 08:50 Body Mass Index 28.70 (90.72 kg, 177.80 cm) 7 MDM: 08:43 Patient medically screened. [facility] 09:26 Differential diagnosis: anaphylaxis, angioedema, bronchospasm, Myocardial Ischemia lani Status Asthmaticus urticaria. Data reviewed: vital signs, nurses notes, EKG. Data interpreted: fireman: rate is 99 beats/min, rhythm is regular, Pulse oximetry: on room air is 98 %. Test interpretation: by ED physician or midlevel provider: ECG. Counseling: I had a detailed discussion with the patient and/or guardian regarding: the historical points, exam findings, and any diagnostic results supporting the discharge/admit diagnosis, the need for outpatient follow up, for definitive care, a retail and restaurant, a family practitioner, a neurologist. 11/10 08:55 Order name: EKG; Complete Time: 08:56 [facility] 11/10 08:55 Order name: EKG - Nurse/Tech; Complete Time: 09:17 [facility] EC:25 Rate is 99 beats/min. Rhythm is regular. QRS [place] is Normal. [place] interval is normal. QRS lani interval is normal. QT interval is normal. No Q waves. T waves are Normal. No ST changes noted. Clinical impression: Normal ECG and No evidence of ischemia. Interpreted by me. Reviewed by me. Administered Medications: 09:00 Drug: Benadryl 25 mg Route: PO; 7 10:00 Follow up: Response: No adverse reaction 7 09:00 Drug: Pepcid 40 mg Route: PO; jl7 10:00 Follow up: Response: No adverse reaction 7 09:00 Drug: predniSONE 60 mg Route: PO; jl7 10:00 Follow up: Response: No adverse reaction [facility] 09:05 Drug: TORadol 60 mg Route: IM; Site: right ventrogluteal; jl7 10:00 Follow up: Response: No adverse reaction; Pain is decreased [facility] Disposition: 11/10/20 09:28 Discharged to Home. Impression: Allergy, unspecified, Allergy status to narcotic agent status, Allergy status to other drugs, medicaments and biological substances status. - Condition is Stable. - Discharge Instructions: Allergies, Adult, General Headache Without Cause, Angioedema, Angioedema, [id number], Aspirin and Your Heart. - Prescriptions for Hydroxyzine HCl 25 mg Oral Tablet - take 2 tablet by ORAL route every 6 hours As needed; 36 tablet. Pepcid 20 mg Oral Tablet - take 1 tablet by ORAL route every 12 hours for 10 days; 20 tablet. Prednisone 20 mg Oral Tablet - take 2 tablet by ORAL route once daily for 5 days; 10 tablet. EpiPen 0.3 mg Injection auto- injector - inject 1 pen by INTRAMUSCULAR route one time Inject into the outer portion of the thigh, through clothing if necessary. Indicated in the emergency treatment of allergic reactions; 1 Cartridge. - Medication Reconciliation Form, Thank You Letter, Antibiotic Education, Prescription Opioid Use, Work release form form. - Follow up: Private Physician; When: 2 - 3 days; Reason: Recheck today's complaints, Continuance of care, Re-evaluation by your physician. Follow up: Wyatt Freedman MD; When: 2 - 3 days; Reason: Recheck today's complaints, Re-evaluation by your physician. Follow up: Evan Prajapati MD; When: 2 - 3 days; Reason: Recheck today's complaints, Re-evaluation by your physician. - Problem is new. - Symptoms have improved. Signatures: Yossi Ojeda MD MD cha Leal, Jahala RN RN jl7 Corrections: (The following items were deleted from the chart) 10:04 09:28 11/10/2020 09:28 Discharged to Home. Impression: Allergy, unspecified; Allergy jl7 status to narcotic agent status; Allergy status to other drugs, medicaments and biological substances status. Condition is Stable. Discharge Instructions: Allergies, Adult, Angioedema, Angioedema, [id number], Aspirin and Your Heart. Prescriptions for Hydroxyzine HCl 25 mg Oral Tablet - take 2 tablet by ORAL route every 6 hours As needed; 36 tablet, Pepcid 20 mg Oral Tablet - take 1 tablet by ORAL route every 12 hours for 10 days; 20 tablet, Prednisone 20 mg Oral Tablet - take 2 tablet by ORAL route once daily for 5 days; 10 tablet, EpiPen 0.3 mg Injection auto-injector - inject 1 pen by INTRAMUSCULAR route one time Inject into the outer portion of the thigh, through clothing if necessary. Indicated in the emergency treatment of allergic reactions; 1 Cartridge. and Forms are Medication Reconciliation Form, Thank You Letter, Antibiotic Education, Prescription Opioid Use. Follow up: Private Physician; When: 2 - 3 days; Reason: Recheck today's complaints, Continuance of care, Re-evaluation by your physician. Follow up: Wyatt Freedman; When: 2 - 3 days; Reason: Recheck today's complaints, Re-evaluation by your physician. Follow up: Evan Prajapati; When: 2 - 3 days; Reason: Recheck today's complaints, Re-evaluation by your physician. Problem is new. Symptoms have improved. lani
[2020-11-10 10:38] VITALS: BP 105/88; O2SAT 100
[2020-11-10 10:39] VITALS: TEMP 98.4
== END 2020-11-10 10:04 | disposition home or self-care (01) ==
LOC: ER 07:55
DX: R21 Rash and other nonspecific skin eruption (principal); R07.9 Chest pain, unspecified; Z88.5 Allergy status to narcotic agent; Z88.8 Allergy status to other drugs, medicaments and biological substances; I10 Essential (primary) hypertension; N19 Unspecified kidney failure
CPT/HCPCS: 93005; 96372; 99284; J7512

== ENCOUNTER 2022-05-11 14:13 | Emergency (ER) | payer OTHER ==
[2022-05-11] MEDS ORDERED: ACETAMINOPHEN 500 MG TAB ONE (15:14)
[2022-05-11] MEDS ORDERED: IBUPROFEN 400 MG TAB ONE (15:14)
--- NOTE | 2022-05-11 15:34 | RAD REPORT ---
EXAM DESCRIPTION: RAD - Foot Left 3 View - 05/11/2022 3:23 pm CLINICAL HISTORY: PAIN COMPARISON: No comparisons FINDINGS: No fracture or dislocation is evident. No aggressive bone lesion
--- NOTE | 2022-05-11 16:08 | ER ---
[facility] Name: Zuhair Hawthorne Age: 37 yrs Sex: Male : 1985 Arrival Date: 05/11/2022 Time: 14:14 Bed 9 Private MD: Diagnosis: Pain in left foot Presentation: 05/11 14:27 Chief complaint: Patient states: left foot pain X 1 week. Denies injury. Coronavirus iw screen: At this time, the client does not indicate any symptoms associated with coronavirus-19. Ebola Screen: No symptoms or risks identified at this time. Initial Sepsis Screen: Does the patient meet any 2 criteria? No. Patient's initial sepsis screen is negative. Does the patient have a suspected source of infection? No. Patient's initial sepsis screen is negative. Risk Assessment: Do you want to hurt yourself or someone else? Patient reports no desire to harm self or others. Onset of symptoms was May 11, 2022 at 14:28. 14:27 Method Of Arrival: Ambulatory iw 14:27 Acuity: BRIE 4 iw Triage Assessment: 14:28 General: Appears in no apparent distress. comfortable, Behavior is calm, cooperative, iw appropriate for age. Pain: Complains of pain in left foot Pain does not radiate. Pain currently is 3 out of 10 on a pain scale. EENT: No signs and/or symptoms were reported regarding the EENT system. Neuro: Level of Consciousness is awake, alert, obeys commands, Oriented to person, place, time, situation, Appropriate for age. Cardiovascular: Capillary refill < 3 seconds Patient's skin is warm and dry. Respiratory: Airway is patent Respiratory effort is even, unlabored, Respiratory pattern is regular, symmetrical. GI: No signs and/or symptoms were reported involving the gastrointestinal system. : No signs and/or symptoms were reported regarding the genitourinary system. Derm: No signs and/or symptoms reported regarding the dermatologic system. Musculoskeletal: Reports pain in left foot. Historical: - Allergies: 14:28 Codeine (Hives, rash); iw - PMHx: 14:28 GERD; Hyperlipidemia; Hypertension; Migraines; RENAL FAILURE; Tachycardia; iw - PSHx: 14:28 None; iw - Immunization history:: Adult Immunizations up to date, Client reports having NOT received the Covid vaccine. - Social history:: Smoking status: Patient denies any tobacco usage or history of. Patient uses alcohol, occasionally. Vital Signs: 14:27 BP 136 / 98; Pulse 88; Resp 18; Temp 97.4(TE); Pulse Ox 99% on R/A; Weight 106.59 kg; iw Height 5 ft. 10 in. (177.80 cm); Pain 3/10; 14:27 Body Mass Index 33.72 (106.59 kg, 177.80 cm) iw ED Course: 14:14 Patient arrived in ED. mr 14:23 Yossi Radford PA is PHCP. cp 14:23 Tim Toribio DO is Attending Physician. cp 14:27 Mai Irene, RN is Primary Nurse. iw 14:28 Triage completed. iw 14:28 Arm band placed on right wrist. iw 15:25 XRAY Foot LEFT 3 View In Process Unspecified. EDMS 16:07 Krishan Smith MD is Referral Physician. cp Administered Medications: 15:15 Drug: Ibuprofen 800 mg Route: PO; iw 15:15 Drug: Tylenol 1000 mg Route: PO; iw Outcome: 16:07 Discharge ordered by . cp 16:49 Discharged to home with crutches, with family. iw 16:49 Condition: good 16:49 Discharge instructions given to patient, Instructed on discharge instructions, follow up and referral plans. Demonstrated understanding of instructions, follow-up care, medications, Prescriptions given X 1. 16:50 Patient left the ED. iw Signatures: Dispatcher [employer] Denice Bermudez Mai Irene RN RN iw Yossi Radofrd PA PA cp
--- NOTE | 2022-05-11 16:08 | EDPHYS ---
Physician Documentation [facility] Name: Zuhair Hawthorne Age: 37 yrs Sex: Male : 1985 Arrival Date: 05/11/2022 Time: 14:14 Bed 9 Private MD: ED Physician Tim Toribio HPI: 05/11 14:38 This 37 yrs old Male presents to ER via Ambulatory with complaints of Foot Pain. cp Historical: - Allergies: 14:28 Codeine (Hives, rash); iw - PMHx: 14:28 GERD; Hyperlipidemia; Hypertension; Migraines; RENAL FAILURE; Tachycardia; iw - PSHx: 14:28 None; iw - Immunization history:: Adult Immunizations up to date, Client reports having NOT received the Covid vaccine. - Social history:: Smoking status: Patient denies any tobacco usage or history of. Patient uses alcohol, occasionally. Vital Signs: 14:27 BP 136 / 98; Pulse 88; Resp 18; Temp 97.4(TE); Pulse Ox 99% on R/A; Weight 106.59 kg; iw Height 5 ft. 10 in. (177.80 cm); Pain 3/10; 14:27 Body Mass Index 33.72 (106.59 kg, 177.80 cm) iw MDM: 14:35 Patient medically screened. cp 05/11 14:39 Order name: XRAY Foot LEFT 3 View; Complete Time: 15:57 cp 05/11 15:57 Interpretation: Reviewed report. cp 05/11 16:07 Order name: Crutches cp 05/11 16:07 Order name: Griffin Wrap cp Administered Medications: 15:15 Drug: Ibuprofen 800 mg Route: PO; iw 15:15 Drug: Tylenol 1000 mg Route: PO; iw Disposition Summary: 05/11/22 16:07 Discharge Ordered Location: Home cp Problem: new cp Symptoms: have improved cp Condition: Stable cp Diagnosis - Pain in left foot cp Followup: cp - With: Krishan Smith MD - When: 2 - 3 days - Reason: Recheck today's complaints Discharge Instructions: - Discharge Summary Sheet cp - Foot Pain cp Forms: - Medication Reconciliation Form cp - Thank You Letter cp - Antibiotic Education cp - Prescription Opioid Use cp Prescriptions: - Ibuprofen 800 mg Oral Tablet - take 1 tablet by ORAL route every 8 hours As needed take with food; 30 tablet; cp Refills: 0, Product Selection Permitted Signatures: Dispatcher [employer] Mai Hopkins, LEVI RN Yossi Dacosta PA PA cp
[2022-05-11 17:11] VITALS: BP 136/98; TEMP 97.4; O2SAT 99
== END 2022-05-11 16:50 | disposition home or self-care (01) ==
LOC: ER 14:13
DX: M79.672 Pain in left foot (principal)

== ENCOUNTER 2025-07-24 22:24 | Emergency (ER) | payer MEDICAID ==
--- OUTSIDE RECORDS SUMMARY | 2025-07-24 22:35 | XMS REPORT | Continuity of Care Document ---
Author Name Unknown Address [address] [place] [address] [address] [place] [address] [facility] Address [address] [facility] [address] [place] [address] Care Team Providers Care Finisher Cold Rolling Name Role Phone Hari ULRICH, [place] Primary Care Physician BELLE MCGEE Attending Clinician Unavailable MAURICE JONES Attending Clinician Unavail able MAURICE JONES Attending Clinician Unavail able JUNI LORA Attending Clinician Demetria vaBere Barbosa CPhT Attending Clinician Unavaila MELLISSA Locke Attending Clinician Unavailab Mellissa Ribeiro MD Attending Clinician [phone] Maurice Jones MD Attending Clinician [phone] Raffi Luque DDS Attending Clinician [phone] Lab, Ang - Db Attending Clinician Unavailable Belle Mcgee MD Attending Clinician Doctor Unassigned, [place] Attending Clinician U navailable Radiology Attending Clinician Unavailable RADIOLOGY Attending Clinician Unavailable CARLOS LEDESMA Attending Clinician UnavailCarlos Nuno MD Attending Clinician [phone] Ciera RNYoselin M Attending Clinician Unavailable Nurse, [facility] Attending Clinician Unav ailable Unknown, Attending Attending Clinician Unavailab le UNKNOWN, ATTENDING Attending Clinician Unavailab le Lab, Gal[facility] Fam Pob I Attending Clinician UnavailKimberly Murry Attending Clinician BELLE MCGEE Admitting Clinician Unavailable MELLISSA LUCIA Admitting Clinician Unavailab MAURICE Andino Admitting Clinician Unavail RAFFI Vega Admitting Clinician Unavailable Payers Payer Name Policy Type Policy Number Effective Date Expirati on Date Source [facility] [id number] 2024 00:00:00 Problems Condition Name Condition Details Condition Category Status Onset Date Resolution Date Last Treatment Date Treating Clinician Comments Source S/P vasectomy S/P vasectomy Disease Active 2023-11 00:00: 00 [address] Epic Male sterility Male sterility Disease Active 2023-11 00:00: 00 [address] 60 Epic Male infertilit y, unspecifie d Male infertilit y, unspecifie d Disease Active 2023-11 00:00: 00 [address] 60 Epic Acute renal failure (ARF) Acute renal failure (ARF) Disease Active 05-05 00:00: 00 [facility] Renal failure Renal failure Disease Active 05-01 00:00: 00 [address] 60 Epic Allergies, Adverse Reactions, Alerts Allergy Name Allergy Type Status Severity Reaction(s) Onset Date Inactive Date Treating Clinician Comments Source codeine Propensi ty to adverse reaction to drug Active 02-13 00:00: 00 Piero Alvarez Codeine Sulfate - Oral Propensi ty to adverse reaction to drug Active 02-28 00:00: 00 Piero Alvarez CODEINE DRUG INGREDI Active Rash 05-01 00:00: 00 [facility] Codeine Propensi ty to adverse reaction s Active Rash 05-01 00:00: 00 [facility] Codeine Propensi ty to adverse reaction s to drug Active Rash 05-01 00:00: 00 [address] 60 Epic Social History Social Habit Start Date Stop Date Quantity Comments Source Gender identity [id number] Epic Sexual orientation A Epic History SDOH Alcohol Frequency [facility] History SDOH Alcohol Std Drinks [facility] History SDOH Alcohol Binge [facility] History of tobacco use Current smoker [facility] Exposure to SARS-CoV-2 (event) Not sure [facility] Alcoholic beverage intake 2025-02-11 00:00:00 2025-02-11 00:00:00 Current drinker of alcohol (finding) [facility] History of Social function 2024-08-17 00:00:00 2024-08-17 00:00:00 [facility] Tobacco use and exposure 2024-08-17 00:00:00 2024-08-17 00:00:00 Smokeless tobacco non-user [facility] Alcohol intake 2020-09-10 00:00:00 2020-09-10 00:00:00 Current drinker of alcohol (finding) [facility] Alcohol Comment 2020-09-10 00:00:00 2020-09-10 00:00:00 occasionally [facility] Sex assigned at 1985 00:00:00 1985 00:00:00 [facility] Smoking Status Start Date Stop Date Source Never smoked tobacco [address] 60 Epic Ex-smoker 2024-08-17 00:00:00 2024-[facility] 00:00:00 [facility] Medications Ordered Medication Name Filled Medication Name Start Date Stop Date Current Medication? Ordering Clinician Indication Dosage Frequency Signature (SIG) Comments Components Source gabapentin 300 mg capsule 07-24 00:00: 00 Yes mg Piero Alvarez diclofenac sodium 75 mg tablet,reed yed release 07-24 00:00: 00 Yes 1mg Piero Alvarez trazodone 100 mg tablet 07-24 00:00: 00 Yes 1mg Piero Alvarez clindamycin HCl 300 mg capsule 16 00:00: 00 Yes 1mg Piero Alvarez Augmentin 500 mg-125 mg tablet - 00:00: 00 Yes 1mg Piero Alvarez Bactrim DS 800 mg-160 mg tablet - 00:00: 00 Yes 1mg Piero Alvarez ipratropium 21 mcg (0.03 %) nasal spray 02-11 00:00: 00 Yes [id number] 1 spray to both nostrils 2-4 times daily for nasal drainage/p ostnasal drip especially before eating, can also help nasal congestion and viral or allergy exacerbati ons [facility] azelastine 137 mcg (0.1 %) nasal spray 02-11 00:00: 00 Yes [id number] 1{spray } Use 1 [place] in each nostril in the morning and 1 [place] in the evening. You can get this over the counter if not covered [facility] doxycycline hyclate 50 mg capsule 02-11 00:00: 00 Yes [id number] Take 1 capsule PO with food and water BID (2x daily) for 28 days. Take probiotics while on this. Use GoodRx if not covered [facility] ubrogepant (UBRELVY) 100 mg tablet 01-23 11:12: 01 Yes Take by mouth. [facility] erenumab-ao oe (AIMOVIG AUTOINJECTO R) 140 mg/mL AtIn [id number] 01-21 00:00: 00 Yes [id number] 140mg inject 140 mg (1 pen) under the skin once every month. [facility] LORazepam (ATIVAN) 2 mg tablet 01-07 00:00: 00 01-08 05:59 :00 No [id number] 2mg Take 1 tablet by mouth once now for 1 dose. Use the second tablet if no response to the first one. [facility] allopurinoL (ZYLOPRIM) 300 mg tablet 12-25 12:18: 50 Yes 300mg QD Take 300 mg by mouth once daily [address] 60 Epic clindamycin (CLEOCIN) 300 mg capsule 12-25 12:18: 50 Yes TAKE ONE CAPSULE BY MOUTH THREE TIMES DAILY FOR 10 DAYS bisoproloL- hydrochloro thiazide (ZIAC) 5-6.25 mg per tablet 12-25 12:18: 50 Yes 1{tbl} QD Take 1 Tablet by mouth once daily omeprazole (PRILOSEC) [address] capsule 2025-0 2-18 12:18: 50 Yes 40mg QD Take 40 mg by mouth once daily rosuvastati n (CRESTOR) 10 mg tablet 18 12:18: 50 Yes 10mg QD Take 10 mg by mouth once daily UBRELVY 100 mg tab -18 12:18: 50 Yes cetirizine 10 mg tablet 2023-11 2-24 00:00: 00 Yes mg Piero Alvarez omeprazole 40 mg capsule,del ayed release 2023-11-16 00:00: 00 Yes 1mg Piero Alvarez Topamax 50 mg tablet 2023-11- 00:00: 00 Yes 1mg Piero Alvarez Ubrelvy 100 mg tablet 2023-11 00:00: 00 Yes 1mg Piero Alvarez omega-3 fatty acids-vitam in E (FISH OIL) 1,000 mg capsule 2023-11 14:21: 03 Yes 2g Take 2 capsules by mouth in the morning and 2 capsules in the evening. [facility] niacin 500 mg tablet 2023-11 14:21: 03 Yes 1000mg Take 2 tablets by mouth in the morning and 2 tablets in the evening. [facility] CRESTOR 10 mg tablet 2023-11 14:21: 03 Yes [facility] clindamycin HCl 300 mg capsule 2023-11 0 00:00: 00 Yes 1mg Piero Alvarez bisoproloL- hydrochloro thiazide 5-6.25 mg per tablet 2023-11 0 00:00: 00 Yes 1{tbl} Take 1 tablet by mouth every morning. [facility] amoxicillin 500 mg capsule 07-10 00:00: 00 Yes 1mg Piero Alvarez allopurinoL 300 mg tablet 8-06 00:00: 00 Yes 300mg Take 1 tablet by mouth every morning. [facility] clindamycin HCl 300 mg capsule 04-17 00:00: 00 Yes 1mg Piero Alvarez allopurinol 300 mg tablet - 00:00: 00 Yes 1mg Piero Alvarez sildenafil 100 mg tablet 02-13 00:00: 00 Yes 1mg Piero Alvarez meloxicam 15 mg tablet 3-06 00:00: 00 Yes 1mg Piero Alvarez diclofenac sodium 75 mg tablet,reed yed release 3- 00:00: 00 Yes 1mg Piero Alvarez TRAZODONE HYDROCHLORI DE 50 MG TABS 1-10 00:00: 00 Yes Piero Alvarez TAKE 1 TABLET EVERY MORNING NEEDED. 2022-11 2 00:00: 00 Yes 10 Piero Alvarez 1 CAPSULE BY MOUTH EVERY 12 HOURS 2022-11 2-19 00:00: 00 03-21 00:00 :00 No 300 Piero Alvarez CLINDAMYCIN HYDROCHLORI DE 300 MG 2022-11 2-18 00:00: 00 Yes Piero Alvarez TAKE 1 CAPSULE BY MOUTH DAILY 2022-11 2- 00:00: 00 Yes Piero Alvarez TAKE 1 TABLET DAILY. 2022-11 2- 00:00: 00 03-21 00:00 :00 No 15 Piero Alvarez HYDROXYZINE PAMOATE 25 MG 2022-11 0-18 00:00: 00 Yes Piero Alvarez TRAZODONE HYDROCHLORI DE 50 MG TABS 2022-11 0-18 00:00: 00 Yes Piero Alvarez TAKE 1 TABLET BY MOUTH EVERY DAY 2022-11 0-10 00:00: 00 Yes Piero Alvarez TAKE 1 CAPSULE DAILY WITH A MEAL. 2022-11 0-04 00:00: 00 03-21 00:00 :00 No 75 Piero Alvarez TAKE 1 TABLET EVERY MORNING NEEDED. 2022-11 0-04 00:00: 00 03-21 00:00 :00 No 10 Piero Alvarez TAKE 1 CAPSULE DAILY WITH A MEAL. -18 00:00: 00 03-21 00:00 :00 No 75 Piero Alvarez PANTOPRAZOL E SODIUM 40 MG TBEC 9-11 00:00: 00 Yes Piero Alvarez TAKE 1 TABLET DAILY. - 00:00: 00 Yes 300 Piero Alvarez TAKE 1 CAPSULE EVERY 8 HOURS. 8-22 00:00: 00 03-21 00:00 :00 No 500 Piero Alvarez TAKE 1 TABLET EVERY MORNING NEEDED. 8- 00:00: 00 03-21 00:00 :00 No 10 Piero Alvarez TAKE 1 CAPSULE TWICE DAILY. 8- 00:00: 00 03-21 00:00 :00 No 100 Piero Alvarez ROSUVASTATI N CALCIUM 10 MG TABS 8- 00:00: 00 Yes Piero Alvarez BISOPROLOL FUMARATE/HY DROCHLOROTH IA ZIDE 5-6.25 MG TABS 7-06 00:00: 00 Yes Piero Alvarez TAKE 1 CAPSULE BY MOUTH THREE TIMES DAILY 7- 00:00: 00 Yes Piero Alvarez OXCARBAZEPI NE 300 MG TABS 7-05 00:00: 00 Yes Piero Alvarez TRAZODONE HYDROCHLORI DE 50 MG TABS 5-15 00:00: 00 Yes Piero Alvarez OXCARBAZEPI NE 300 MG TABS 5-15 00:00: 00 Yes Piero Alvarez HYDROXYZINE PAMOATE 25 MG 5-15 00:00: 00 Yes Piero Alvarez CLINDAMYCIN HYDROCHLORI DE 300 MG 3-07 00:00: 00 03-21 00:00 :00 No Piero Alvarez TAKE ONE (1) TABLET(S) BY MOUTH ONCE A DAY. 2-27 00:00: 00 Yes Piero Alvarez OMEPRAZOLE 40 MG CPDR 1-19 00:00: 00 Yes Piero Alvarez UBRELVY 100 MG TABS 2021-11 0-20 00:00: 00 Yes Piero Alvarez TAKE 1 CAPSULE BY MOUTH DAILY 2021-11 0-18 00:00: 00 Yes Piero Alvarez CHLORHEXIDI NE GLUCONATE 0.12 % SOLN 2021-11 0-06 00:00: 00 Yes Piero Alvarez AMOXICILLIN /CLAVULANAT E POTASSIUM 875-125 MG TABS 2021-11 0-06 00:00: 00 Yes Piero Alvarez TAKE ONE (1) TABLET(S) BY MOUTH TWICE A DAY. 2021-11 0-06 00:00: 00 Yes Piero Alvarez BISOPROLOL FUMARATE/HY DROCHLOROTH IA ZIDE 5-6.25 MG TABS 9-14 00:00: [address] 1 DROP IN AFFECTED EYE EVERY 4 HOURS FOR 7 DAYS. 8-31 00:00: 00 Yes Piero Alvarez TOPIRAMATE 50 MG TABS 8-19 00:00: 00 Yes Piero Alvarez CETIRIZINE HYDROCHLORI DE 10 MG TABS 8-08 00:00: 00 03-21 00:00 :00 No Piero Alvarez CLINDAMYCIN 300MG Capsules 8-08 00:00: 00 03-21 00:00 :00 No Piero Alvarez omega-3 fatty acids-vitam in E (FISH OIL) 1,000 mg capsule 2019-11 20:20: 36 Yes 2g Take 2 g by mouth 2 (two) times daily. [facility] niacin 500 mg tablet 2019-11 20:20: 36 Yes 1000mg Take 1,000 mg by mouth 2 (two) times daily. [facility] esomeprazol e (NEXIUM) 40 mg capsule 2019-11 20:20: 36 Yes 40mg Take 40 mg by mouth daily. [facility] omega-3 fatty acids-vitam in E (FISH OIL) 1,000 mg capsule 2019-11 14:20: 36 Yes 2g Take 2 g by mouth 2 (two) times daily. [facility] niacin 500 mg tablet 2019-11 14:20: 36 Yes 1000mg Take 1,000 mg by mouth 2 (two) times daily. [facility] omega-3 fatty acids-vitam in E (FISH OIL) 1,000 mg capsule 2019-11 14:20: 36 Yes 2g Take 2 g by mouth 2 (two) times daily. [facility] esomeprazol e (NEXIUM) 40 mg capsule 2019-11 14:20: 36 Yes 40mg Take 40 mg by mouth daily. [facility] omega-3 fatty acids-vitam in E (FISH OIL) 1,000 mg capsule 05-08 20:33: 42 Yes 2g Take 2 g by mouth 2 (two) times daily. [facility] niacin 500 mg tablet 05-08 20:33: 42 Yes 1000mg Take 1,000 mg by mouth 2 (two) times daily. [facility] esomeprazol e (NEXIUM) 40 mg capsule 05-08 20:33: 42 Yes 40mg Take 40 mg by mouth daily. [facility] omeprazole 40 mg capsule 05 00:00: 00 Yes [facility] pravastatin 40 mg tablet 16 00:00: 00 Yes [facility] ibuprofen 600 mg tablet 03-20 00:00: 00 Yes [facility] carvedilol 6.25 mg tablet 18 00:00: 00 Yes [facility] Vital Signs Vital Name Observation Time Observation Value Comments S ource Body temperature 2025-02-11 13:12:00 36.39 Lexie [facility] Body height 2025-02-11 13:12:00 177.8 cm [facility] Body weight 2025-02-11 13:12:00 94.53 kg [facility] BMI 2025-02-11 13:12:00 29.90 kg/m2 [facility] Systolic blood pressure 2024-12-25 14:16:00 117 mm[Hg] [id number] Ep ic Diastolic blood pressure 2024-12-25 14:16:00 79 mm[Hg] [id number] Ep ic Heart rate 2024-12-25 14:16:00 69 /min [id number] Epic Systolic blood pressure 2024-12-18 14:23:00 124 mm[Hg] [facility] Diastolic blood pressure 2024-12-18 14:23:00 79 mm[Hg] [facility] Heart rate 2024-12-18 14:23:00 75 /min [facility] Body temperature 2024-12-18 14:23:00 36.56 Lexie [facility] Respiratory rate 2024-12-18 14:23:00 20 /min [facility] Body height 2024-12-18 14:23:00 177.8 cm [facility] Body weight 2024-12-18 14:23:00 91.173 kg [facility] BMI 2024-12-18 14:23:00 28.84 kg/m2 [facility] Oxygen saturation in Arterial blood by Pulse oximetry 2024-12-18 14:23:00 99 /min [facility] Systolic blood pressure 2024-08-17 19:17:00 119 mm[Hg] [facility] Diastolic blood pressure 2024-08-17 19:17:00 75 mm[Hg] [facility] Heart rate 2024-08-17 19:17:00 73 /min [facility] Respiratory rate 2024-08-17 19:17:00 16 /min [facility] Body height 2024-08-17 19:17:00 177.8 cm [facility] Body weight 2024-08-17 19:17:00 89.812 kg [facility] BMI 2024-08-17 19:17:00 28.41 kg/m2 [facility] Oxygen saturation in Arterial blood by Pulse oximetry 2024-08-17 19:17:00 99 /min [facility] Systolic blood pressure 2020-09-10 20:22:00 124 mm[Hg] [facility] Diastolic blood pressure 2020-09-10 20:22:00 78 mm[Hg] [facility] Heart rate 2020-09-10 20:22:00 92 /min [facility] Respiratory rate 2020-09-10 20:22:00 16 /min [facility] Body height 2020-09-10 20:22:00 177.8 cm [facility] Body weight 2020-09-10 20:22:00 90.719 kg [facility] BMI 2020-09-10 20:22:00 28.70 kg/m2 [facility] Respiratory rate 2020-09-07 21:00:00 20 /min [facility] Oxygen saturation in Arterial blood by Pulse oximetry 2020-09-07 21:00:00 99 /min [facility] BP Systolic 2025-07-24 11:42:00 128 mm[Hg] Step hen F Antonio BP Diastolic 2025-07-24 11:42:00 79 mm[Hg] Mario phen F Antonio Weight Measured 2025-07-24 11:42:00 216.00 pounds Piero F Antonio Height Measured 2025-07-24 11:42:00 69.00 inches Piero F Antonio Body Temperature 2025-07-24 11:42:00 98.50 degrees Pieor F Antonio Heart Rate 2025-07-24 11:42:00 95.00 /min Gabi en F Antonio Respiratory Rate 2025-07-24 11:42:00 18.00 /min Piero F Antonio BP Systolic 2025-05-08 09:20:00 113 mm[Hg] Step hen F Antonio BP Diastolic 2025-05-08 09:20:00 80 mm[Hg] Mario phen F Antonio Weight Measured 2025-05-08 09:20:00 209.60 pounds Piero F Antonio Height Measured 2025-05-08 09:20:00 69.00 inches Piero F Antonio Body Temperature 2025-05-08 09:20:00 96.90 degrees Piero F Antonio Heart Rate 2025-05-08 09:20:00 83.00 /min Gabi en F Antonio Respiratory Rate 2025-05-08 09:20:00 18.00 /min Piero F Antonio BP Systolic 2025-05-01 11:23:00 129 mm[Hg] Step hen F Antonio BP Diastolic 2025-05-01 11:23:00 90 mm[Hg] Mario phen F Antonio Weight Measured 2025-05-01 11:23:00 210.40 pounds Ipero F Antonio Height Measured 2025-05-01 11:23:00 69.00 inches Piero F Antonio Body Temperature 2025-05-01 11:23:00 98.00 degrees Piero F Antonio Heart Rate 2025-05-01 11:23:00 85.00 /min Gabi en F Antonio Respiratory Rate 2025-05-01 11:23:00 18.00 /min Piero F Antonio BP Systolic 2024-10-22 15:02:00 Step hen F Antonio BP Diastolic 2024-10-22 15:02:00 Mario phen F Antonio Weight Measured 2024-10-22 15:02:00 Piero F Antonio Height Measured 2024-10-22 15:02:00 Piero F Antonio Body Temperature 2024-10-22 15:02:00 Piero F Antonio Heart Rate 2024-10-22 15:02:00 Gabi en F Antonio Respiratory Rate 2024-10-22 15:02:00 Piero F Antonio BP Systolic 2024-09-12 09:10:00 Step hen F Antonio BP Diastolic 2024-09-12 09:10:00 Mario phen F Antonio Weight Measured 2024-09-12 09:10:00 Piero F Antonio Height Measured 2024-09-12 09:10:00 Piero F Antonio Body Temperature 2024-09-12 09:10:00 Piero F Antonio Heart Rate 2024-09-12 09:10:00 Gabi en F Antonio Respiratory Rate 2024-09-12 09:10:00 Piero F Antonio BP Systolic 2024-08-15 13:34:00 Step hen F Antonio BP Diastolic 2024-08-15 13:34:00 Mario phen F Antonio Weight Measured 2024-08-15 13:34:00 Piero F Antonio Height Measured 2024-08-15 13:34:00 Piero F Antonio Body Temperature 2024-08-15 13:34:00 Piero F Antonio Heart Rate 2024-08-15 13:34:00 Gabi en F Antonio Respiratory Rate 2024-08-15 13:34:00 Piero F Antonio BP Systolic 2024-07-10 09:18:00 120 mm[Hg] Step hen F Antonio BP Diastolic 2024-07-10 09:18:00 70 mm[Hg] Mario phen F Antonio Weight Measured 2024-07-10 09:18:00 196.00 pounds Piero F Antonio Height Measured 2024-07-10 09:18:00 69.50 inches Piero F Antonio Body Temperature 2024-07-10 09:18:00 98.20 degrees Piero F Antonio Heart Rate 2024-07-10 09:18:00 69.00 /min Gabi en F Antonio Respiratory Rate 2024-07-10 09:18:00 16.00 /min Piero F Antonio BP Systolic 2024-04-17 13:32:00 Step hen F Antonio BP Diastolic 2024-04-17 13:32:00 Mario phen F Antonio Weight Measured 2024-04-17 13:32:00 Piero F Antonio Height Measured 2024-04-17 13:32:00 Piero F Antonio Body Temperature 2024-04-17 13:32:00 Piero F Antonio Heart Rate 2024-04-17 13:32:00 Gabi en F Antonio Respiratory Rate 2024-04-17 13:32:00 Piero F Antonio BP Systolic 2024-02-21 10:04:00 Step hen F Antonio BP Diastolic 2024-02-21 10:04:00 Mario phen F Antonio Weight Measured 2024-02-21 10:04:00 Piero F Antonio Height Measured 2024-02-21 10:04:00 Piero F Antonio Body Temperature 2024-02-21 10:04:00 Piero F Antonio Heart Rate 2024-02-21 10:04:00 Gabi en F Antonio Respiratory Rate 2024-02-21 10:04:00 Piero F Antonio BP Systolic 2024-02-14 10:13:00 120 mm[Hg] Step hen F Antonio BP Diastolic 2024-02-14 10:13:00 76 mm[Hg] Mario phen F Antonio Weight Measured 2024-02-14 10:13:00 205.00 pounds Piero F Antonio Height Measured 2024-02-14 10:13:00 69.50 inches Piero F Antonio Body Temperature 2024-02-14 10:13:00 98.10 degrees Piero F Antonio Heart Rate 2024-02-14 10:13:00 70.00 /min Gabi en F Antonio Respiratory Rate 2024-02-14 10:13:00 20.00 /min Piero F Antonio BP Systolic 2023-08-10 11:00:00 126 mm[Hg] Step hen F Antonio BP Diastolic 2023-08-10 11:00:00 82 mm[Hg] Mario phen F Antonio Weight Measured 2023-08-10 11:00:00 237.00 pounds Piero F Antonio Height Measured 2023-08-10 11:00:00 70.00 inches Piero F Antonio Body Temperature 2023-08-10 11:00:00 96.90 degrees Piero F Antonio Heart Rate 2023-08-10 11:00:00 83.00 /min Gabi en F Antonio Respiratory Rate 2023-08-10 11:00:00 18.00 /min Piero F Antonio BP Systolic 2023-07-25 08:40:00 120 mm[Hg] Step hen F Antonio BP Diastolic 2023-07-25 08:40:00 82 mm[Hg] Mario phen F Antonio Weight Measured 2023-07-25 08:40:00 239.00 pounds Piero F Antonio Height Measured 2023-07-25 08:40:00 70.00 inches Piero F Antonio Body Temperature 2023-07-25 08:40:00 97.60 degrees Piero F Antonio Heart Rate 2023-07-25 08:40:00 80.00 /min Gabi en F Antonio Respiratory Rate 2023-07-25 08:40:00 18.00 /min Piero F Antonio BP Systolic 2023-07-01 13:15:00 138 mm[Hg] Step hen F Antonio BP Diastolic 2023-07-01 13:15:00 84 mm[Hg] Mario phen F Antonio Weight Measured 2023-07-01 13:15:00 288.00 pounds Piero F Antonio Height Measured 2023-07-01 13:15:00 70.00 inches Piero F Antonio Body Temperature 2023-07-01 13:15:00 97.80 degrees Piero F Antonio Heart Rate 2023-07-01 13:15:00 83.00 /min Gabi en F Antonio Respiratory Rate 2023-07-01 13:15:00 18.00 /min Piero F Antonio BP Systolic 2023-06-28 11:58:00 122 mm[Hg] Step hen F Antonio BP Diastolic 2023-06-28 11:58:00 100 mm[Hg] Mario phen F Antonio Weight Measured 2023-06-28 11:58:00 240.00 pounds Piero F Antonio Height Measured 2023-06-28 11:58:00 70.00 inches Piero F Antonio Body Temperature 2023-06-28 11:58:00 98.50 degrees Piero F Antonio Heart Rate 2023-06-28 11:58:00 108.00 /min Step hen F Antonio Respiratory Rate 2023-06-28 11:58:00 18.00 /min Piero F Antonio BP Systolic 2023-02-28 08:43:00 119 mm[Hg] Justo Alvarez BP Diastolic 2023-02-28 08:43:00 78 mm[Hg] Mario Alvarez Weight Measured 2023-02-28 08:43:00 240.00 pounds Piero Alvarez Height Measured 2023-02-28 08:43:00 70.00 inches Piero Alvarez Body Temperature 2023-02-28 08:43:00 98.20 degrees Piero Alvarez Heart Rate 2023-02-28 08:43:00 72.00 /min Gabi Alvarez Respiratory Rate 2023-02-28 08:43:00 20.00 /min Piero Alvarez Procedures Procedure Date / Time Performed Performing Clinician Source CT LANDMARK SINUS WO CONTRAST 2025-04-15 13:30:44 Mellissa Lucia [facility] MR BRAIN WO CONTRAST 2025-01-09 16:19:[address] [facility] COMP ORAL EVALUATION - NEW/ESTABLISHED PATIENT 2024-12-25 14:00:00 Raffi Luque INTRAORAL - COMP SERIES OF RADIOGRAPHIC IMAGES 2024-12-25 14:00:00 Raffi Luque PANORAMIC RADIOGRAPHIC IMAGE 2024-12-25 14:00:00 Raffi Luque UNS REMOVABLE PROSTHODONTIC PROCEDURE REPORT 2024-12-25 14:00:00 Raffi Luque 2 B RESIN-BASED COMPOSITE - ONE SURFACE POSTERIOR 2024-12-25 14:00:00 30 STANLEY RESIN-BASED COMPOSITE - TWO SURFACES POSTERIOR 2024-12-25 14:00:00 6 DFL RESIN-BASED COMPOSITE THREE SURFACES ANTERIOR 2024-12-25 14:00:00 9 DIFL RESIN-BASED COMPOSITE-4/> SURFACES ANTERIOR 2024-12-25 14:00:00 7 EXTRACTION ERUPTED TOOTH OR EXPOSED ROOT 2024-12-25 14:00:00 PROPHYLAXIS - ADULT 2024-12-25 14:00:00 NUTRITIONAL COUNSELING CONTROL OF DENTAL DISEASE 2024-12-25 14:00:00 ORAL HYGIENE INSTRUCTIONS 2024-12-25 14:00:00 10 CROWN - PORCELAIN FUSED PREDOMINANTLY BASE METAL 2024-12-25 00:00:00 Ochin, Provider [email or web address] Epic 18 CROWN - FULL CAST JUNG METAL 2024-12-25 00:00:00 Ochin, Provider [email or web address] Epic 2 LO COMPOSITE - WISDOM (NON BILLABLE) 2024-12-25 00:00:00 Ochin, Provider [email or web address] Epic 7 ROOT CANAL - WISDOM (NO BILLABLE) 2024-12-25 00:00:00 Ochin, Provider [email or web address] Epic POCT URINALYSIS AUTO 2024-08-17 19:27:00 Crista Mcgee [facility] REFERRAL- REQUEST/RESPONSE 2023-02-28 05:01:00 Doctor Unassigned, [place] [facility] REFERRAL- REQUEST/RESPONSE 2022-02-24 05:01:00 Doctor Unassigned, [place] [facility] XR HAND <3 VW RIGHT 2020-11-20 20:20:59 Gabi Noriega [facility] MR SHOULDER RIGHT WO CONTRAST 2020-09-29 14:52:14 Carlos Ledesma [facility] REFERRAL- REQUEST/RESPONSE 2020-09-18 06:01:00 Doctor Unassigned, [place] [facility] EXTERNAL PROVIDER RECORDS 2020-08-27 05:01:00 Doctor Unassigned, [place] [facility] REFERRAL- REQUEST/RESPONSE 2020-08-15 05:01:00 Doctor Unassigned, [place] [facility] Plan of Care Planned Activity Planned Date Details Comments Source Encounters Start Date/Time End Date/Time Encounter Type Admission Type Attending Clinicians Care Facility Care Department Encounter ID Source 2024-08-20 07:35:58 Outpatient BELLE PERRY [facility] [id number] [facility] 2026-01-21 09:40:00 2026-01-21 09:40:00 Outpatient MAURICE VELASQUEZ [facility] [id number] [facility] 2025-07-24 11:39:45 2025-07-24 11:39:45 Outpatient SFA [facility] [id number] Piero Alvarez 2025-07-24 00:00:00 2025-07-24 00:00:00 Outpatient Visit SFA [id number] Piero Alvarez 2025-07-23 00:00:00 2025-07-23 00:00:00 Outpatient Visit SFA [id number] Piero Alvarez 2025-07-18 00:00:00 2025-07-18 16:38:19 Specialty Pharmacy Bere Luque Emily C [facility] 1.2.840.114 350.1.13.10 4.2.7.2.686 [id number] [facility] 2025-06-21 15:35:32 2025-06-21 15:35:32 Outpatient SFA [facility] [id number] Piero Alvarez 2025-06-21 00:00:00 2025-06-21 00:00:00 Outpatient Visit SFA [id number] Piero Alvarez 2025-05-13 09:00:00 2025-05-13 09:00:00 Outpatient [facility] [id number] [facility] 2025-05-08 09:10:58 2025-05-08 09:10:58 Outpatient SFA [facility] [id number] Piero Alvarez 2025-05-08 00:00:00 2025-05-08 00:00:00 Outpatient Visit SFA [id number] Piero Alvarez 2025-05-01 11:09:13 2025-05-01 11:09:13 Outpatient SFA [facility] [id number] Piero Alvarez 2025-05-01 00:00:00 2025-05-01 00:00:00 Outpatient Visit SFA [id number] Piero Alvarez 2025-04-18 00:00:00 2025-04-19 10:30:35 Telephone Mellissa Lucia [facility] 1.2.840.114 350.1.13.10 4.2.7.2.686 [id number] [facility] 2025-04-15 08:15:21 2025-04-15 23:59:00 Hospital Encounter Surendra L[facility] 1.2.840.114 350.1.13.10 4.2.7.2.686 [id number] [facility] 2025-04-08 08:20:00 2025-04-08 08:20:00 Outpatient Surendra LUCIA [facility] [id number] [facility] 2025-02-12 00:00:00 2025-02-13 08:33:51 [facility] 1.2.840.114 350.1.13.10 4.2.7.2.686 [id number] [facility] 2025-02-11 08:15:00 2025-02-11 09:13:01 Outpatient Surendra LUCIA [facility] [id number] [facility] 2025-02-11 08:15:00 2025-02-11 09:13:01 [facility] 1.2.840.114 350.1.13.10 4.2.7.2.686 [id number] [facility] 2025-01-21 09:00:00 2025-01-21 09:40:38 Outpatient MAURICE VELASQUEZ [facility] [id number] [facility] 2025-01-09 09:05:26 2025-01-09 23:59:00 Outpatient MAURICE VELASQUEZ [facility] [id number] [facility] 2025-01-09 09:05:26 2025-01-09 23:59:00 Hospital Encounter Maurice Jones [facility] AT COUNT INCLUDES [facility] 1..840.114 350.1.13.10 4.2.7.2.686 [id number] [facility] 2025-01-08 00:00:00 2025-01-08 00:00:00 Outpatient [id number] [place] [address] 60 [facility] 2025-01-07 00:00:00 2025-01-07 16:14:25 Telephone Maurice Jones [facility] 1..840.114 350.1.13.10 4.2.7.2.686 [id number] [facility] 2024-12-27 00:00:00 2024-12-27 00:00:00 Outpatient MAURICE VELASQUEZ [facility] [id number] [facility] 2024-12-25 14:00:00 2024-12-25 15:14:42 Office Visit Raffi Luque [facility] [place] 1..840.114 350.1.13.66 .2.7.2.6869 [id number] [place] [address] 60 [facility] 2024-12-18 09:30:00 2024-12-18 09:30:00 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 Visit Lab, Ang - Maurice Olson Lab, Ang - Db [facility] 1..840.114 350.1.13.10 4.2.7.2.686 [id number] [facility] 2024-12-18 08:20:00 2024-12-18 08:55:50 Outpatient MAURICE VLEASQUEZ [facility] [id number] [facility] 2024-12-18 08:20:00 2024-12-18 08:55:50 Office Visit [facility] 1.2.840.114 350.1.13.10 4.2.7.2.686 [id number] [facility] 2024-10-22 00:00:00 2024-10-22 00:00:00 Outpatient Visit SFA [id number] Piero Alvarez 2024-09-12 00:00:00 2024-09-12 00:00:00 Outpatient Visit SFA [id number] Piero Garner Antonio 2024-08-17 14:00:00 2024-08-17 15:16:06 Outpatient R [facility] [id number] [facility] 2024-08-17 14:00:00 2024-08-17 15:16:06 Office Visit Belle Mcgee [facility] 1.2.840.114 350.1.13.10 4.2.7.2.686 [id number] [facility] 2024-08-15 00:00:00 2024-08-15 00:00:00 Outpatient Visit SFA [id number] Piero Alvarez 2024-07-10 09:18:36 2024-07-10 09:18:36 Outpatient SFA [facility] [id number] Piero Alvarez 2024-07-10 00:00:00 2024-07-10 00:00:00 Outpatient Visit SFA [id number] Piero Garner Antonio 2024-04-17 00:00:00 2024-04-17 00:00:00 Outpatient Visit SFA [id number] Piero Alvarez 2024-02-14 10:02:47 2024-02-14 10:02:47 Outpatient [facility] [id number] Piero Alvarez 2023-08-10 10:59:02 2023-08-10 10:59:02 Outpatient [facility] [id number] Piero Garner Antonio 2023-07-25 08:35:04 2023-07-25 08:35:04 Outpatient [facility] [id number] Piero Garnre [place] 2023-07-01 13:05:33 2023-07-01 13:05:33 Outpatient [facility] [id number] Piero Garner [place] 2023-02-28 08:38:00 2023-02-28 08:38:00 Outpatient [facility] 0424 Piero Garner [place] 2023-02-28 00:00:00 2023-02-28 00:00:00 Orders Only Doctor Unassigned, [facility] 1.840.114 350.1.13.10 4.2.7.2.686 [id number] [facility] 2023-02-28 00:00:00 2023-02-28 00:00:00 Patient Secure Msg Doctor Unassigned, [facility] 1.2840.114 350.1.13.10 4.2.7.2.686 [id number] [facility] 2022-02-24 00:00:00 2022-02-24 00:00:00 Orders Only Doctor Unassigned, [facility] 1.2840.114 350.1.13.10 4.2.7.2.686 [id number] [facility] 2020-11-20 13:58:32 2020-11-20 23:59:00 Hospital Encounter Radiology [facility] 1.2840.114 350.1.13.10 4.2.7.2.686 [id number] [facility] 2020-11-20 00:00:00 2020-11-20 00:00:00 Outpatient R [facility] [id number] [facility] 2020-10-23 15:45:00 2020-10-23 15:45:00 Outpatient R CARLOS LEDES[facility] [id number] [facility] 2020-10-14 00:00:00 2020-10-14 00:00:00 Telephone Carlos Ledesma [facility] [place] 1.840.114 350.1.13.10 4.2.7.2.686 [id number] [facility] 2020-09-29 08:00:00 2020-09-29 23:59:00 Hospital Encounter Carlos Ledesma [facility] 1.84.114 350.1.13.10 4.2.7.2.686 [id number] [facility] 2020-09-29 00:00:00 2020-09-29 00:00:00 Outpatient R CARLOS LEDES[facility] [id number] [facility] 2020-09-18 00:00:00 2020-09-18 00:00:00 Orders Only Doctor Unassigned, [facility] .84.114 350.1.13.10 4.2.7.2.686 [id number] [facility] 2020-09-12 00:00:00 2020-09-12 00:00:00 Telephone Carlos Ledesma [facility] Surgical [facility] [place] 1.840.114 350.1.13.10 4.2.7.2.686 [id number] [facility] 2020-09-10 14:11:13 2020-09-10 14:41:20 Office Visit Carlos Ledesma [facility] Surgical Special[facility] [place] 1.840.114 350.1.13.10 4.2.7.2.686 [id number] [facility] 2020-09-10 14:15:00 2020-09-10 14:15:00 Outpatient [facility] [id number] [facility] 2020-09-08 00:00:00 2020-09-08 00:00:[address] [facility] 1.2840.114 350.1.13.10 4.2.7.2.686 [id number] [facility] 2020-09-07 17:33:27 2020-09-07 17:48:27 Laboratory Only Nurse, [facility] Adult [facility] Unknown, Attending [facility] [place] 1.2840.114 350.1.13.10 4.2.7.2.686 [id number] [facility] 2020-09-07 17:15:00 2020-09-07 17:15:00 Outpatient R UNKNOWN, [facility] [id number] [facility] 2020-09-05 08:30:00 2020-09-05 08:30:00 [facility] [id number] [facility] 2020-08-27 00:00:00 2020-08-27 00:00:00 Orders Only Doctor Unassigned, [facility] 1.20.114 350.1.13.10 4.2.7.2.686 [id number] [facility] 2020-08-15 00:00:00 2020-08-15 00:00:00 Orders Only Doctor Unassigned, [facility] 1.2840.114 350.1.13.10 4.2.7.2.686 [id number] [facility] 2020-05-31 16:30:00 2020-05-31 16:30:00 Outpatient R [facility] [id number] [facility] 2020-05-27 15:14:28 2020-05-27 15:34:28 Laboratory Only Lab, Adc Fam Robb Emily Lupis [facility] 1..840.114 350.1.13.10 4.2.7.2.686 [id number] [facility] 2020-05-27 15:10:00 2020-05-27 15:10:00 Outpatient R [facility] [id number] [facility] 2020-05-27 00:00:00 2020-05-27 00:00:00 Letter (Out) Doctor Unassigned, [facility] 1..840.114 350.1.13.10 4.2.7.2.686 [id number] [facility] Results Test Description Test Time Test Comments Results Result Co mments Source Piero AlvarezCOMPREHENSIVE METABOLIC [id number] 00:00:00* Test Item Value Reference Range Interpretation Comme nts GLUCOSE (test code = 2345-7) 75 mg/dL UREA NITROGEN (BUN) (test code = 3094-0) 14 mg/dL CREATININE (test code = 2160-0) 0.92 mg/dL EGFR (test code = 20837-3) 109 mL/min/1.73m2 BUN/CREATININE RATIO (test code = 3097-3) SEE NOTE: (calc) SODIUM (test code = 2951-2) 140 mmol/L POTASSIUM (test code = 2823-3) 4.2 mmol/L CHLORIDE (test code = 2075-0) 102 mmol/L CARBON DIOXIDE (test code = 2027-9) 29 mmol/L CALCIUM (test code = 69431-8) 9.8 mg/dL PROTEIN, TOTAL (test code = 2885-2) 7.2 g/dL ALBUMIN (test code = 1751-7) 4.8 g/dL GLOBULIN (test code = 59585-6) 2.4 g/dL(calc) ALBUMIN/GLOBULIN RATIO (test code = 1759-0) 2.0 (calc) BILIRUBIN, TOTAL (test code = 1975-2) 1.0 mg/dL ALKALINE PHOSPHATASE (test code = 6768-6) 70 U/L AST (test code = 1920-8) 23 U/L ALT (test code = 1742-6) 25 U/L Piero AlvarezLIPID [id number] 00:00:00* Test Item Value Reference Range Interpretation Comme nts CHOLESTEROL, TOTAL (test cod e = 2093-3) 196 mg/dL HDL CHOLESTEROL (test code = 2085-9) 36 mg/dL TRIGLYCERIDES (test code = 2571-8) 308 mg/dL LDL-CHOLESTEROL (test code = 13265-5) 116 mg/dL(calc) CHOL/HDLC RATIO (test code = 9830-1) 5.4 (calc) NON HDL CHOLESTEROL (test code = 93372-7) 160 mg/dL(calc) Piero AlvarezURINALYSIS [id number] 00:00:00* Test Item Value Reference Range Interpretation Comme nts COLOR (test code = 5778-6) DARK YELLOW APPEARANCE (test code = 5767-9) CLEAR SPECIFIC GRAVITY (test code = 5811-5) 1.028 PH (test code = 5803-2) 6.0 GLUCOSE (test code = 94823-4) NEGATIVE BILIRUBIN (test code = 5770-3) NEGATIVE KETONES (test code = 2514-8) TRACE OCCULT BLOOD (test code = 5794-3) NEGATIVE PROTEIN (test code = 04583-0) TRACE NITRITE (test code = 5802-4) NEGATIVE LEUKOCYTE ESTERASE (test cod e = 5799-2) NEGATIVE WBC (test code = 5821-4) NONE SEEN /HPF RBC (test code = 62542-8) NONE SEEN /HPF SQUAMOUS EPITHELIAL CELLS (test code = 78601-8) NONE SEEN /HPF TRANSITIONAL EPITHELIAL CELL S (test code = 85642-6) DNR /HPF RENAL EPITHELIAL CELLS (test code = 89620-6) DNR /HPF BACTERIA (test code = 5769-5) NONE SEEN /HPF CALCIUM OXALATE CRYSTALS (te st code = 94999-7) DNR /HPF TRIPLE PHOSPHATE CRYSTALS (test code = 79623-6) DNR /HPF URIC ACID CRYSTALS (test cod e = 62238-0) DNR /HPF AMORPHOUS SEDIMENT (test cod e = 8246-1) DNR /HPF CRYSTALS (test code = 48448-5) DNR /HPF HYALINE CAST (test code = 5796-8) NONE SEEN /LPF GRANULAR CAST (test code = 5793-5) DNR /LPF CASTS (test code = 9842-6) DNR /LPF YEAST (test code = 5822-2) DNR /HPF COMMENTS (test code = 8251-1) DNR Piero Garner AustinHEPATITIS C AB W/REFL TO HCV RNA, QN, [id number] 00:00:00* Test Item Value Reference Range Interpretation Comme nts HEPATITIS C ANTIBODY (test c ode = 40801-8) NON-REACTIVE Piero AlvarezHIV 1/2 ANTIGEN/ANTIBODY,FOURTH GENERATION [id number] 00:00:00* Test Item Value Reference Range Interpretation Comme nts HIV AG/AB, 4TH GEN (test cod e = 53490-4) NON-REACTIVE Piero AlvarezPSA, [id number] 00:00:00* Test Item Value Reference Range Interpretation Comme nts PSA, TOTAL (test code = 2857-1) 0.52 ng/mL Piero Garner AustinTESTOSTERONE, TOTAL AND FREE AND SEX HORMONE BINDING GLOBULIN 2025-05-12 00:00:00* Test Item Value Reference Range Interpretation Comme nts TESTOSTERONE, TOTAL, MS (romy t code = 2986-8) 506 ng/dL TESTOSTERONE, FREE (test cod e = 2991-8) 80.5 pg/mL SEX HORMONE BINDING GLOBULIN (test code = 09263-2) 22 nmol/L Piero Garner AustinCHLAMYDIA/N. GONORRHOEAE RNA, [id number] 00:00:00* Test Item Value Reference Range Interpretation Comme nts CHLAMYDIA TRACHOMATIS RNA, T MA, UROGENITAL (test code = 44040-9) NOT DETECTED NEISSERIA GONORRHOEAE RNA, T MA, UROGENITAL (test code = 56407-9) NOT DETECTED Piero Garner AustinSURESWAB(R) TRICHOMONAS VAGINALIS RNA, QL, [id number] 00:00:00* Test Item Value Reference Range Interpretation Comme nts TRICHOMONAS VAGINALIS RNA, Q L TMA (test code = 95889-5) NOT DETECTED Piero Garner AustinCBC (INCLUDES DIFF/PLT)2025-05-12 00:00:00* Test Item Value Reference Range Interpretation Comme nts WHITE BLOOD CELL COUNT (test code = 6690-2) 6.3 Thousand/uL RED BLOOD CELL COUNT (test code = 789-8) 5.27 Million/uL HEMOGLOBIN (test code = 718-7) 15.9 g/dL HEMATOCRIT (test code = 4544-3) 49.4 % MCV (test code = 787-2) 93.7 fL MCH (test code = 785-6) 30.2 pg MCHC (test code = 786-4) 32.2 g/dL RDW (test code = 788-0) 13.5 % PLATELET COUNT (test code = 777-3) 294 Thousand/uL MPV (test code = 776-5) 10.1 fL ABSOLUTE NEUTROPHILS (test code = 751-8) 3452 cells/uL ABSOLUTE BAND NEUTROPHILS (test code = 04165-4) DNR cells/uL ABSOLUTE METAMYELOCYTES (romy t code = 04680-9) DNR cells/uL ABSOLUTE MYELOCYTES (test code = 85281-3) DNR cells/uL ABSOLUTE PROMYELOCYTES (test code = 73667-3) DNR cells/uL ABSOLUTE LYMPHOCYTES (test code = 731-0) 2104 cells/uL ABSOLUTE MONOCYTES (test cod e = 742-7) 529 cells/uL ABSOLUTE EOSINOPHILS (test code = 711-2) 183 cells/uL ABSOLUTE BASOPHILS (test cod e = 704-7) 32 cells/uL ABSOLUTE BLASTS (test code = 66834-1) DNR cells/uL ABSOLUTE NUCLEATED RBC (test code = 00020-1) DNR cells/uL NEUTROPHILS (test code = 770-8) 54.8 % BAND NEUTROPHILS (test code = 764-1) DNR % METAMYELOCYTES (test code = 740-1) DNR % MYELOCYTES (test code = 749-2) DNR % PROMYELOCYTES (test code = 783-1) DNR % LYMPHOCYTES (test code = 736-9) 33.4 % REACTIVE LYMPHOCYTES (test code = 97760-9) DNR % MONOCYTES (test code = 5905-5) 8.4 % EOSINOPHILS (test code = 713-8) 2.9 % BASOPHILS (test code = 706-2) 0.5 % BLASTS (test code = 709-6) DNR % NUCLEATED RBC (test code = 74049-6) DNR /100WBC COMMENT(S) (test code = 8251-1) DNR Piero AlvarezCOMPREHENSIVE METABOLIC [id number] 00:00:00* Test Item Value Reference Range Interpretation Comme nts GLUCOSE (test code = 2345-7) 75 mg/dL UREA NITROGEN (BUN) (test code = 3094-0) 14 mg/dL CREATININE (test code = 2160-0) 0.92 mg/dL EGFR (test code = 90026-3) 109 mL/min/1.73m2 BUN/CREATININE RATIO (test code = 3097-3) SEE NOTE: (calc) SODIUM (test code = 2951-2) 140 mmol/L POTASSIUM (test code = 2823-3) 4.2 mmol/L CHLORIDE (test code = 2075-0) 102 mmol/L CARBON DIOXIDE (test code = 2027-9) 29 mmol/L CALCIUM (test code = 80059-6) 9.8 mg/dL PROTEIN, TOTAL (test code = 2885-2) 7.2 g/dL ALBUMIN (test code = 1751-7) 4.8 g/dL GLOBULIN (test code = 37844-6) 2.4 g/dL(calc) ALBUMIN/GLOBULIN RATIO (test code = 1759-0) 2.0 (calc) BILIRUBIN, TOTAL (test code = 1975-2) 1.0 mg/dL ALKALINE PHOSPHATASE (test code = 6768-6) 70 U/L AST (test code = 1920-8) 23 U/L ALT (test code = 1742-6) 25 U/L Piero AlvarezLIPID [id number] 00:00:00* Test Item Value Reference Range Interpretation Comme nts CHOLESTEROL, TOTAL (test cod e = 2093-3) 196 mg/dL HDL CHOLESTEROL (test code = 2085-9) 36 mg/dL TRIGLYCERIDES (test code = 2571-8) 308 mg/dL LDL-CHOLESTEROL (test code = 67371-5) 116 mg/dL(calc) CHOL/HDLC RATIO (test code = 9830-1) 5.4 (calc) NON HDL CHOLESTEROL (test code = 55946-7) 160 mg/dL(calc) Piero F AustinURINALYSIS [id number] 00:00:00* Test Item Value Reference Range Interpretation Comme nts COLOR (test code = 5778-6) DARK YELLOW APPEARANCE (test code = 5767-9) CLEAR SPECIFIC GRAVITY (test code = 5811-5) 1.028 PH (test code = 5803-2) 6.0 GLUCOSE (test code = 15279-6) NEGATIVE BILIRUBIN (test code = 5770-3) NEGATIVE KETONES (test code = 2514-8) TRACE OCCULT BLOOD (test code = 5794-3) NEGATIVE PROTEIN (test code = 92703-8) TRACE NITRITE (test code = 5802-4) NEGATIVE LEUKOCYTE ESTERASE (test cod e = 5799-2) NEGATIVE WBC (test code = 5821-4) NONE SEEN /HPF RBC (test code = 76159-4) NONE SEEN /HPF SQUAMOUS EPITHELIAL CELLS (test code = 14580-2) NONE SEEN /HPF TRANSITIONAL EPITHELIAL CELL S (test code = 80215-7) DNR /HPF RENAL EPITHELIAL CELLS (test code = 40885-5) DNR /HPF BACTERIA (test code = 5769-5) NONE SEEN /HPF CALCIUM OXALATE CRYSTALS (te st code = 70054-8) DNR /HPF TRIPLE PHOSPHATE CRYSTALS (test code = 52449-7) DNR /HPF URIC ACID CRYSTALS (test cod e = 51887-2) DNR /HPF AMORPHOUS SEDIMENT (test cod e = 8246-1) DNR /HPF CRYSTALS (test code = 02498-3) DNR /HPF HYALINE CAST (test code = 5796-8) NONE SEEN /LPF GRANULAR CAST (test code = 5793-5) DNR /LPF CASTS (test code = 9842-6) DNR /LPF YEAST (test code = 5822-2) DNR /HPF COMMENTS (test code = 8251-1) DNR Piero AlvarezHEPATITIS C AB W/REFL TO HCV RNA, QN, [id number] 00:00:00* Test Item Value Reference Range Interpretation Comme nts HEPATITIS C ANTIBODY (test c ode = 94812-8) NON-REACTIVE Piero AlvarezHIV 1/2 ANTIGEN/ANTIBODY,FOURTH GENERATION [id number] 00:00:00* Test Item Value Reference Range Interpretation Comme nts HIV AG/AB, 4TH GEN (test cod e = 08734-5) NON-REACTIVE Piero AlvarezPSA, [id number] 00:00:00* Test Item Value Reference Range Interpretation Comme vane PSA, TOTAL (test code = 2857-1) 0.52 ng/mL Piero AlvarezTESTOSTERONE, TOTAL AND FREE AND SEX HORMONE BINDING GLOBULIN 2025-05-12 00:00:00* Test Item Value Reference Range Interpretation Comme nts TESTOSTERONE, TOTAL, MS (romy t code = 2986-8) 506 ng/dL TESTOSTERONE, FREE (test cod e = 2991-8) 80.5 pg/mL SEX HORMONE BINDING GLOBULIN (test code = 32723-9) 22 nmol/L Piero AlvarezCHLAMYDIA/N. GONORRHOEAE RNA, [id number] 00:00:00* Test Item Value Reference Range Interpretation Comme vane CHLAMYDIA TRACHOMATIS RNA, T MA, UROGENITAL (test code = 86737-4) NOT DETECTED NEISSERIA GONORRHOEAE RNA, T MA, UROGENITAL (test code = 66428-2) NOT DETECTED Piero AlvarezSURESWAB(R) TRICHOMONAS VAGINALIS RNA, QL, [id number] 00:00:00* Test Item Value Reference Range Interpretation Comme vane TRICHOMONAS VAGINALIS RNA, Q L TMA (test code = 95558-4) NOT DETECTED Piero AlvarezCBC (INCLUDES DIFF/PLT)2025-05-12 00:00:00* Test Item Value Reference Range Interpretation Comme nts WHITE BLOOD CELL COUNT (test code = 6690-2) 6.3 Thousand/uL RED BLOOD CELL COUNT (test code = 789-8) 5.27 Million/uL HEMOGLOBIN (test code = 718-7) 15.9 g/dL HEMATOCRIT (test code = 4544-3) 49.4 % MCV (test code = 787-2) 93.7 fL MCH (test code = 785-6) 30.2 pg MCHC (test code = 786-4) 32.2 g/dL RDW (test code = 788-0) 13.5 % PLATELET COUNT (test code = 777-3) 294 Thousand/uL MPV (test code = 776-5) 10.1 fL ABSOLUTE NEUTROPHILS (test code = 751-8) 3452 cells/uL ABSOLUTE BAND NEUTROPHILS (test code = 54563-3) DNR cells/uL ABSOLUTE METAMYELOCYTES (romy t code = 77690-8) DNR cells/uL ABSOLUTE MYELOCYTES (test code = 31146-3) DNR cells/uL ABSOLUTE PROMYELOCYTES (test code = 37967-9) DNR cells/uL ABSOLUTE LYMPHOCYTES (test code = 731-0) 2104 cells/uL ABSOLUTE MONOCYTES (test cod e = 742-7) 529 cells/uL ABSOLUTE EOSINOPHILS (test code = 711-2) 183 cells/uL ABSOLUTE BASOPHILS (test cod e = 704-7) 32 cells/uL ABSOLUTE BLASTS (test code = 74987-8) DNR cells/uL ABSOLUTE NUCLEATED RBC (test code = 36437-7) DNR cells/uL NEUTROPHILS (test code = 770-8) 54.8 % BAND NEUTROPHILS (test code = 764-1) DNR % METAMYELOCYTES (test code = 740-1) DNR % MYELOCYTES (test code = 749-2) DNR % PROMYELOCYTES (test code = 783-1) DNR % LYMPHOCYTES (test code = 736-9) 33.4 % REACTIVE LYMPHOCYTES (test code = 83679-7) DNR % MONOCYTES (test code = 5905-5) 8.4 % EOSINOPHILS (test code = 713-8) 2.9 % BASOPHILS (test code = 706-2) 0.5 % BLASTS (test code = 709-6) DNR % NUCLEATED RBC (test code = 13970-5) DNR /100WBC COMMENT(S) (test code = 8251-1) DNR Piero AlvarezCOMPREHENSIVE METABOLIC [id number] 00:00:00* Test Item Value Reference Range Interpretation Comme nts GLUCOSE (test code = 2345-7) 75 mg/dL UREA NITROGEN (BUN) (test code = 3094-0) 14 mg/dL CREATININE (test code = 2160-0) 0.92 mg/dL EGFR (test code = 36539-8) 109 mL/min/1.73m2 BUN/CREATININE RATIO (test code = 3097-3) SEE NOTE: (calc) SODIUM (test code = 2951-2) 140 mmol/L POTASSIUM (test code = 2823-3) 4.2 mmol/L CHLORIDE (test code = 2075-0) 102 mmol/L CARBON DIOXIDE (test code = 2027-9) 29 mmol/L CALCIUM (test code = 47748-6) 9.8 mg/dL PROTEIN, TOTAL (test code = 2885-2) 7.2 g/dL ALBUMIN (test code = 1751-7) 4.8 g/dL GLOBULIN (test code = 72393-9) 2.4 g/dL(calc) ALBUMIN/GLOBULIN RATIO (test code = 1759-0) 2.0 (calc) BILIRUBIN, TOTAL (test code = 1975-2) 1.0 mg/dL ALKALINE PHOSPHATASE (test code = 6768-6) 70 U/L AST (test code = 1920-8) 23 U/L ALT (test code = 1742-6) 25 U/L Piero AlvarezLIPID [id number] 00:00:00* Test Item Value Reference Range Interpretation Comme nts CHOLESTEROL, TOTAL (test cod e = 2093-3) 196 mg/dL HDL CHOLESTEROL (test code = 2084-9) 36 mg/dL TRIGLYCERIDES (test code = 2571-8) 308 mg/dL LDL-CHOLESTEROL (test code = 82410-8) 116 mg/dL(calc) CHOL/HDLC RATIO (test code = 9830-1) 5.4 (calc) NON HDL CHOLESTEROL (test code = 73524-7) 160 mg/dL(calc) Piero Garner AustinURINALYSIS [id number] 00:00:00* Test Item Value Reference Range Interpretation Comme nts COLOR (test code = 5778-6) DARK YELLOW APPEARANCE (test code = 5767-9) CLEAR SPECIFIC GRAVITY (test code = 5811-5) 1.028 PH (test code = 5803-2) 6.0 GLUCOSE (test code = 31631-7) NEGATIVE BILIRUBIN (test code = 5770-3) NEGATIVE KETONES (test code = 2514-8) TRACE OCCULT BLOOD (test code = 5794-3) NEGATIVE PROTEIN (test code = 18594-0) TRACE NITRITE (test code = 5802-4) NEGATIVE LEUKOCYTE ESTERASE (test cod e = 5799-2) NEGATIVE WBC (test code = 5821-4) NONE SEEN /HPF RBC (test code = 04576-5) NONE SEEN /HPF SQUAMOUS EPITHELIAL CELLS (test code = 15882-0) NONE SEEN /HPF TRANSITIONAL EPITHELIAL CELL S (test code = 56695-3) DNR /HPF RENAL EPITHELIAL CELLS (test code = 90556-2) DNR /HPF BACTERIA (test code = 5769-5) NONE SEEN /HPF CALCIUM OXALATE CRYSTALS (te st code = 43597-3) DNR /HPF TRIPLE PHOSPHATE CRYSTALS (test code = 23381-2) DNR /HPF URIC ACID CRYSTALS (test cod e = 45191-8) DNR /HPF AMORPHOUS SEDIMENT (test cod e = 8246-1) DNR /HPF CRYSTALS (test code = 52008-2) DNR /HPF HYALINE CAST (test code = 5796-8) NONE SEEN /LPF GRANULAR CAST (test code = 5793-5) DNR /LPF CASTS (test code = 9842-6) DNR /LPF YEAST (test code = 5822-2) DNR /HPF COMMENTS (test code = 8251-1) DNR Piero AlvarezHEPATITIS C AB W/REFL TO HCV RNA, QN, [id number] 00:00:00* Test Item Value Reference Range Interpretation Comme nts HEPATITIS C ANTIBODY (test c ode = 30217-4) NON-REACTIVE Piero AlvarezHIV 1/2 ANTIGEN/ANTIBODY,FOURTH GENERATION [id number] 00:00:00* Test Item Value Reference Range Interpretation Comme vane HIV AG/AB, 4TH GEN (test cod e = 60671-3) NON-REACTIVE Piero AlvarezPSA, [id number] 00:00:00* Test Item Value Reference Range Interpretation Comme nts PSA, TOTAL (test code = 2857-1) 0.52 ng/mL Piero AlvarezTESTOSTERONE, TOTAL AND FREE AND SEX HORMONE BINDING GLOBULIN 2025-05-12 00:00:00* Test Item Value Reference Range Interpretation Comme nts TESTOSTERONE, TOTAL, MS (romy t code = 2986-8) 506 ng/dL TESTOSTERONE, FREE (test cod e = 2991-8) 80.5 pg/mL SEX HORMONE BINDING GLOBULIN (test code = 97435-3) 22 nmol/L Piero AlvarezCHLAMYDIA/N. GONORRHOEAE RNA, [id number] 00:00:00* Test Item Value Reference Range Interpretation Comme nts CHLAMYDIA TRACHOMATIS RNA, T MA, UROGENITAL (test code = 41203-9) NOT DETECTED NEISSERIA GONORRHOEAE RNA, T MA, UROGENITAL (test code = 59301-0) NOT DETECTED Piero Garner AustinSURESWAB(R) TRICHOMONAS VAGINALIS RNA, QL, [id number] 00:00:00* Test Item Value Reference Range Interpretation Comme nts TRICHOMONAS VAGINALIS RNA, Q L TMA (test code = 27669-7) NOT DETECTED Piero Garner AustinCT [place] sinus wo [id number] 15:50:03FULL RESULT: Examination: CT [facility] SINUS WO CONTRAST on 04/15/2025 8:20 AM Clinical Indication: Sinus symptoms Comparison: Brain MRI 01/09/2025. Technique: Noncontrast axial images were obtained through the paranasalsinuses. Findings: There is nonspecific mucosal thickening in the inferior right maxillarysinus and clouding of numerous ethmoid air cells. Similarly there isminimal nonspecific mucosal thickening in the maxillary and right sphenoidsinus. With respect to the nasal cavities there is asuggestion of one orseveral small polyps. The findings are not striking. I do not seedestructive process. Incidental note is made of a large apical lucencyencompassing teeth #7-8.[facility] MR Brain wo [id number] 16:39:20MR BRAIN WO CONTRAST HISTORY: Male 39 years Headache, chronic, new features or increasedfrequency COMPARISON: None TECHNIQUE: Multiplanar multi weighted imaging of the brain was obtainedwithout IV contrast FINDINGS: The ventricles and cerebral sulci are normal in caliber and configuration.No hydrocephalus, midline shift or pathological extra-axial fluidcollection is present. The basal cisterns are unremarkable. No restricted diffusion is present to suggest acute-subacute ischemia. Nofocus of abnormal parenchymal signal intensity or susceptibility signalloss is present. No abnormal fluid signal is present in the mastoid air cells. Mild andmoderate pansinus inflammatory changes are present with air-fluid levels inthe maxillary sinuses[facility], [id number] 19:27:00* Test Item Value Reference Range Interpretation Comme nts POCT U SP GRAV (test code = 3255) 1.020 mg/dl 1.005-1.025 POCT PH U (test code = 3254) 6.0 mg/dl 5-8 POCT U LEUK EST (test code = 3263) Negative Negative - Negative POCT U NIT (test code = 3262) Negative Negative - Negati ve POCT U PROT (test code = 3259) Negative Negative - Negative POCT U GLU (test code = 3256) Negative Negative - Negati ve POCT U KETONE (test code = 3258) Negative Negative - Negative POCT U UROBILI (test code = 3260) 0.2 mg/dl 0.2-1 POCT U BILI (test code = 3261) Negative Negative - Negative POCT U BLD (test code = 3257) Negative Negative - Negati ve POCT U COLOR (test code = 3266) Yellow POCT U APPEAR (test code = 3267) [facility] W/AUTO [id number] 00:00:00* Test Item Value Reference Range Interpretation Comme nts WBC (test code = 1001) 7.6 K/UL RBC (test code = 1002) 5.07 M/UL HEMOGLOBIN (test code = 1003) 15.6 G/DL HEMATOCRIT (test code = 1004) 46.8 % MCV (test code = 1005) 92.3 fL MCH (test code = 1006) 30.8 PG MCHC (test code = 1007) 33.3 G/DL RDW (test code = 1038) 12.7 % NEUTROPHILS (test code = 1008) 62.8 % LYMPHOCYTES (test code = 1010) 25.5 % MONOCYTES (test code = 1011) 7.3 % EOSINOPHILS (test code = 1012) 3.9 % BASOPHILS (test code = 1013) 0.4 % IMMATURE GRANULOCYTES (test code = 1036) 0.1 % NUCLEATED RBCS (test code = 1065) 0.0 /100WBC'S PLATELET COUNT (test code = 1015) 273 K/UL ABSOLUTE NEUTROPHILS (test c ode = 1066) 4.79 K/UL ABSOLUTE LYMPHOCYTES (test c ode = 1067) 1.95 K/UL ABSOLUTE MONOCYTES (test cod e = 1068) 0.56 K/UL ABSOLUTE EOSINOPHILS (test c ode = 1040) 0.30 K/UL ABSOLUTE BASOPHILS (test cod e = 1069) 0.03 K/UL ABS IMMATURE GRANULOCYTES (t est code = 1020) 0.01 K/UL ABS NUCLEATED RBCS (test cod e = 31108) 0.00 K/UL Piero AlvarezLIPID [id number] 00:00:00* Test Item Value Reference Range Interpretation Comme nts CHOLESTEROL (test code = 2210) 137 MG/DL TRIGLYCERIDES (test code = 2232) 135 MG/DL HDL CHOLESTEROL (test code = 2220) 47 MG/DL CALC LDL CHOL (test code = 2237) 68 MG/DL RISK RATIO LDL/HDL (test cod e = 2238) 1.45 RATIO Piero AlvarezCOMPREHENSIVE METABOLIC [id number] 00:00:00* Test Item Value Reference Range Interpretation Comme nts GLUCOSE (test code = 2217) 75 MG/DL BUN (test code = 2208) 10 MG/DL CREATININE (test code = 2214) 0.90 MG/DL eGFR (2020 CKD-EPI) (test code = 01022) 113 ML/MIN/1.73 CALC BUN/CREAT (test code = 2235) 11 RATIO SODIUM (test code = 2231) 141 MEQ/L POTASSIUM (test code = 2228) 4.9 MEQ/L CHLORIDE (test code = 2215) 104 MEQ/L CARBON DIOXIDE (test code = 2206) 26 MEQ/L CALCIUM (test code = 2209) 9.8 MG/DL PROTEIN, TOTAL (test code = 2229) 7.2 G/DL ALBUMIN (test code = 2201) 4.7 G/DL CALC GLOBULIN (test code = 2240) 2.5 G/DL CALC A/G RATIO (test code = 2234) 1.9 RATIO BILIRUBIN, TOTAL (test code = 2207) 0.4 MG/DL ALKALINE PHOSPHATASE (test code = 2204) 78 U/L AST (test code = 2218) 14 U/L ALT (test code = 2219) 13 U/L Piero Garner AustinURINALYSIS W/REFLEX [id number] 00:00:00* Test Item Value Reference Range Interpretation Comme nts COLOR (test code = 1501) YELLOW APPEARANCE (test code = 1502) CLEAR SPECIFIC GRAVITY (test code = 1503) 1.016 LEUKOCYTE ESTERASE (test cod e = 1504) NEGATIVE NITRITE (test code = 1505) NEGATIVE pH (test code = 1506) 6.0 PROTEIN (test code = 1507) NEGATIVE GLUCOSE (test code = 1508) NEGATIVE KETONES (test code = 1509) NEGATIVE UROBILINOGEN (test code = 1510) 0.2 MG/DL BILIRUBIN (test code = 1511) NEGATIVE OCCULT BLOOD (test code = 1512) NEGATIVE Piero AlvarezPSA, [id number] 00:00:00* Test Item Value Reference Range Interpretation Comme nts PSA, TOTAL (test code = 2606) 0.43 NG/ML Piero AlvarezHIV 1/2 4TH GEN, RFLX [id number] 00:00:00* Test Item Value Reference Range Interpretation Comme nts HIV 1/2 4TH GEN, RFLX CONF ( test code = 3514) NON-REACTIVE Piero AlvarezCBC W/AUTO [id number] 00:00:00* Test Item Value Reference Range Interpretation Comme nts WBC (test code = 1001) 7.6 K/UL RBC (test code = 1002) 5.07 M/UL HEMOGLOBIN (test code = 1003) 15.6 G/DL HEMATOCRIT (test code = 1004) 46.8 % MCV (test code = 1005) 92.3 fL MCH (test code = 1006) 30.8 PG MCHC (test code = 1007) 33.3 G/DL RDW (test code = 1038) 12.7 % NEUTROPHILS (test code = 1008) 62.8 % LYMPHOCYTES (test code = 1010) 25.5 % MONOCYTES (test code = 1011) 7.3 % EOSINOPHILS (test code = 1012) 3.9 % BASOPHILS (test code = 1013) 0.4 % IMMATURE GRANULOCYTES (test code = 1036) 0.1 % NUCLEATED RBCS (test code = 1065) 0.0 /100WBC'S PLATELET COUNT (test code = 1015) 273 K/UL ABSOLUTE NEUTROPHILS (test c ode = 1066) 4.79 K/UL ABSOLUTE LYMPHOCYTES (test c ode = 1067) 1.95 K/UL ABSOLUTE MONOCYTES (test cod e = 1068) 0.56 K/UL ABSOLUTE EOSINOPHILS (test c ode = 1040) 0.30 K/UL ABSOLUTE BASOPHILS (test cod e = 1069) 0.03 K/UL ABS IMMATURE GRANULOCYTES (t est code = 1020) 0.01 K/UL ABS NUCLEATED RBCS (test cod e = 25393) 0.00 K/UL Piero AlvarezLIPID [id number] 00:00:00* Test Item Value Reference Range Interpretation Comme nts CHOLESTEROL (test code = 2210) 137 MG/DL TRIGLYCERIDES (test code = 2232) 135 MG/DL HDL CHOLESTEROL (test code = 2220) 47 MG/DL CALC LDL CHOL (test code = 2237) 68 MG/DL RISK RATIO LDL/HDL (test cod e = 2238) 1.45 RATIO Piero AlvarezCOMPREHENSIVE METABOLIC [id number] 00:00:00* Test Item Value Reference Range Interpretation Comme nts GLUCOSE (test code = 2217) 75 MG/DL BUN (test code = 2208) 10 MG/DL CREATININE (test code = 2214) 0.90 MG/DL eGFR (2020 CKD-EPI) (test code = 54916) 113 ML/MIN/1.73 CALC BUN/CREAT (test code = 2235) 11 RATIO SODIUM (test code = 2231) 141 MEQ/L POTASSIUM (test code = 2228) 4.9 MEQ/L CHLORIDE (test code = 2215) 104 MEQ/L CARBON DIOXIDE (test code = 2206) 26 MEQ/L CALCIUM (test code = 2209) 9.8 MG/DL PROTEIN, TOTAL (test code = 2229) 7.2 G/DL ALBUMIN (test code = 2201) 4.7 G/DL CALC GLOBULIN (test code = 2240) 2.5 G/DL CALC A/G RATIO (test code = 2234) 1.9 RATIO BILIRUBIN, TOTAL (test code = 2207) 0.4 MG/DL ALKALINE PHOSPHATASE (test code = 2204) 78 U/L AST (test code = 2218) 14 U/L ALT (test code = 2219) 13 U/L Piero Garner AustinURINALYSIS W/REFLEX [id number] 00:00:00* Test Item Value Reference Range Interpretation Comme nts COLOR (test code = 1501) YELLOW APPEARANCE (test code = 1502) CLEAR SPECIFIC GRAVITY (test code = 1503) 1.016 LEUKOCYTE ESTERASE (test cod e = 1504) NEGATIVE NITRITE (test code = 1505) NEGATIVE pH (test code = 1506) 6.0 PROTEIN (test code = 1507) NEGATIVE GLUCOSE (test code = 1508) NEGATIVE KETONES (test code = 1509) NEGATIVE UROBILINOGEN (test code = 1510) 0.2 MG/DL BILIRUBIN (test code = 1511) NEGATIVE OCCULT BLOOD (test code = 1512) NEGATIVE Piero AlvarezPSA, [id number] 00:00:00* Test Item Value Reference Range Interpretation Comme nts PSA, TOTAL (test code = 2606) 0.43 NG/ML Piero AlvarezHIV 1/2 4TH GEN, RFLX [id number] 00:00:00* Test Item Value Reference Range Interpretation Comme nts HIV 1/2 4TH GEN, RFLX CONF ( test code = 3514) NON-REACTIVE Piero AlvarezCBC W/AUTO [id number] 00:00:00* Test Item Value Reference Range Interpretation Comme nts WBC (test code = 1001) 7.6 K/UL RBC (test code = 1002) 5.07 M/UL HEMOGLOBIN (test code = 1003) 15.6 G/DL HEMATOCRIT (test code = 1004) 46.8 % MCV (test code = 1005) 92.3 fL MCH (test code = 1006) 30.8 PG MCHC (test code = 1007) 33.3 G/DL RDW (test code = 1038) 12.7 % NEUTROPHILS (test code = 1008) 62.8 % LYMPHOCYTES (test code = 1010) 25.5 % MONOCYTES (test code = 1011) 7.3 % EOSINOPHILS (test code = 1012) 3.9 % BASOPHILS (test code = 1013) 0.4 % IMMATURE GRANULOCYTES (test code = 1036) 0.1 % NUCLEATED RBCS (test code = 1065) 0.0 /100WBC'S PLATELET COUNT (test code = 1015) 273 K/UL ABSOLUTE NEUTROPHILS (test c ode = 1066) 4.79 K/UL ABSOLUTE LYMPHOCYTES (test c ode = 1067) 1.95 K/UL ABSOLUTE MONOCYTES (test cod e = 1068) 0.56 K/UL ABSOLUTE EOSINOPHILS (test c ode = 1040) 0.30 K/UL ABSOLUTE BASOPHILS (test cod e = 1069) 0.03 K/UL ABS IMMATURE GRANULOCYTES (t est code = 1020) 0.01 K/UL ABS NUCLEATED RBCS (test cod e = 01007) 0.00 K/UL Piero AlvarezLIPID [id number] 00:00:00* Test Item Value Reference Range Interpretation Comme nts CHOLESTEROL (test code = 2210) 137 MG/DL TRIGLYCERIDES (test code = 2232) 135 MG/DL HDL CHOLESTEROL (test code = 2220) 47 MG/DL CALC LDL CHOL (test code = 2237) 68 MG/DL RISK RATIO LDL/HDL (test cod e = 2238) 1.45 RATIO Piero AlvarezCOMPREHENSIVE METABOLIC [id number] 00:00:00* Test Item Value Reference Range Interpretation Comme nts GLUCOSE (test code = 2217) 75 MG/DL BUN (test code = 2208) 10 MG/DL CREATININE (test code = 2214) 0.90 MG/DL eGFR (2020 CKD-EPI) (test code = 38891) 113 ML/MIN/1.73 CALC BUN/CREAT (test code = 2235) 11 RATIO SODIUM (test code = 2231) 141 MEQ/L POTASSIUM (test code = 2228) 4.9 MEQ/L CHLORIDE (test code = 2215) 104 MEQ/L CARBON DIOXIDE (test code = 2206) 26 MEQ/L CALCIUM (test code = 2209) 9.8 MG/DL PROTEIN, TOTAL (test code = 2229) 7.2 G/DL ALBUMIN (test code = 2201) 4.7 G/DL CALC GLOBULIN (test code = 2240) 2.5 G/DL CALC A/G RATIO (test code = 2234) 1.9 RATIO BILIRUBIN, TOTAL (test code = 2207) 0.4 MG/DL ALKALINE PHOSPHATASE (test code = 2204) 78 U/L AST (test code = 2218) 14 U/L ALT (test code = 2219) 13 U/L Piero Garner AustinURINALYSIS W/REFLEX [id number] 00:00:00* Test Item Value Reference Range Interpretation Comme nts COLOR (test code = 1501) YELLOW APPEARANCE (test code = 1502) CLEAR SPECIFIC GRAVITY (test code = 1503) 1.016 LEUKOCYTE ESTERASE (test cod e = 1504) NEGATIVE NITRITE (test code = 1505) NEGATIVE pH (test code = 1506) 6.0 PROTEIN (test code = 1507) NEGATIVE GLUCOSE (test code = 1508) NEGATIVE KETONES (test code = 1509) NEGATIVE UROBILINOGEN (test code = 1510) 0.2 MG/DL BILIRUBIN (test code = 1511) NEGATIVE OCCULT BLOOD (test code = 1512) NEGATIVE Piero AlvarezPSA, [id number] 00:00:00* Test Item Value Reference Range Interpretation Comme nts PSA, TOTAL (test code = 2606) 0.43 NG/ML Piero AlvarezHIV 1/2 4TH GEN, RFLX [id number] 00:00:00* Test Item Value Reference Range Interpretation Comme nts HIV 1/2 4TH GEN, RFLX CONF ( test code = 3514) NON-REACTIVE Piero AlvarezCBC W/AUTO [id number] 00:00:00* Test Item Value Reference Range Interpretation Comme nts WBC (test code = 1001) 7.6 K/UL RBC (test code = 1002) 5.07 M/UL HEMOGLOBIN (test code = 1003) 15.6 G/DL HEMATOCRIT (test code = 1004) 46.8 % MCV (test code = 1005) 92.3 fL MCH (test code = 1006) 30.8 PG MCHC (test code = 1007) 33.3 G/DL RDW (test code = 1038) 12.7 % NEUTROPHILS (test code = 1008) 62.8 % LYMPHOCYTES (test code = 1010) 25.5 % MONOCYTES (test code = 1011) 7.3 % EOSINOPHILS (test code = 1012) 3.9 % BASOPHILS (test code = 1013) 0.4 % IMMATURE GRANULOCYTES (test code = 1036) 0.1 % NUCLEATED RBCS (test code = 1065) 0.0 /100WBC'S PLATELET COUNT (test code = 1015) 273 K/UL ABSOLUTE NEUTROPHILS (test c ode = 1066) 4.79 K/UL ABSOLUTE LYMPHOCYTES (test c ode = 1067) 1.95 K/UL ABSOLUTE MONOCYTES (test cod e = 1068) 0.56 K/UL ABSOLUTE EOSINOPHILS (test c ode = 1040) 0.30 K/UL ABSOLUTE BASOPHILS (test cod e = 1069) 0.03 K/UL ABS IMMATURE GRANULOCYTES (t est code = 1020) 0.01 K/UL ABS NUCLEATED RBCS (test cod e = 71403) 0.00 K/UL Piero Garner AustinLIPID [id number] 00:00:00* Test Item Value Reference Range Interpretation Comme nts CHOLESTEROL (test code = 2210) 137 MG/DL TRIGLYCERIDES (test code = 2232) 135 MG/DL HDL CHOLESTEROL (test code = 2220) 47 MG/DL CALC LDL CHOL (test code = 2237) 68 MG/DL RISK RATIO LDL/HDL (test cod e = 2238) 1.45 RATIO Piero AlvarezCOMPREHENSIVE METABOLIC [id number] 00:00:00* Test Item Value Reference Range Interpretation Comme nts GLUCOSE (test code = 2217) 75 MG/DL BUN (test code = 2208) 10 MG/DL CREATININE (test code = 2214) 0.90 MG/DL eGFR (2020 CKD-EPI) (test code = 91017) 113 ML/MIN/1.73 CALC BUN/CREAT (test code = 2235) 11 RATIO SODIUM (test code = 2231) 141 MEQ/L POTASSIUM (test code = 2228) 4.9 MEQ/L CHLORIDE (test code = 2215) 104 MEQ/L CARBON DIOXIDE (test code = 2206) 26 MEQ/L CALCIUM (test code = 2209) 9.8 MG/DL PROTEIN, TOTAL (test code = 2229) 7.2 G/DL ALBUMIN (test code = 2201) 4.7 G/DL CALC GLOBULIN (test code = 2240) 2.5 G/DL CALC A/G RATIO (test code = 2234) 1.9 RATIO BILIRUBIN, TOTAL (test code = 2207) 0.4 MG/DL ALKALINE PHOSPHATASE (test code = 2204) 78 U/L AST (test code = 2218) 14 U/L ALT (test code = 2219) 13 U/L Piero Garner AustinURINALYSIS W/REFLEX [id number] 00:00:00* Test Item Value Reference Range Interpretation Comme nts COLOR (test code = 1501) YELLOW APPEARANCE (test code = 1502) CLEAR SPECIFIC GRAVITY (test code = 1503) 1.016 LEUKOCYTE ESTERASE (test cod e = 1504) NEGATIVE NITRITE (test code = 1505) NEGATIVE pH (test code = 1506) 6.0 PROTEIN (test code = 1507) NEGATIVE GLUCOSE (test code = 1508) NEGATIVE KETONES (test code = 1509) NEGATIVE UROBILINOGEN (test code = 1510) 0.2 MG/DL BILIRUBIN (test code = 1511) NEGATIVE OCCULT BLOOD (test code = 1512) NEGATIVE Piero AlvarezPSA, [id number] 00:00:00* Test Item Value Reference Range Interpretation Comme nts PSA, TOTAL (test code = 2606) 0.43 NG/ML Piero AlvarezHIV 1/2 4TH GEN, RFLX [id number] 00:00:00* Test Item Value Reference Range Interpretation Comme nts HIV 1/2 4TH GEN, RFLX CONF ( test code = 3514) NON-REACTIVE Piero AlvarezCBC W/AUTO [id number] 00:00:00* Test Item Value Reference Range Interpretation Comme nts WBC (test code = 1001) 7.6 K/UL RBC (test code = 1002) 5.07 M/UL HEMOGLOBIN (test code = 1003) 15.6 G/DL HEMATOCRIT (test code = 1004) 46.8 % MCV (test code = 1005) 92.3 fL MCH (test code = 1006) 30.8 PG MCHC (test code = 1007) 33.3 G/DL RDW (test code = 1038) 12.7 % NEUTROPHILS (test code = 1008) 62.8 % LYMPHOCYTES (test code = 1010) 25.5 % MONOCYTES (test code = 1011) 7.3 % EOSINOPHILS (test code = 1012) 3.9 % BASOPHILS (test code = 1013) 0.4 % IMMATURE GRANULOCYTES (test code = 1036) 0.1 % NUCLEATED RBCS (test code = 1065) 0.0 /100WBC'S PLATELET COUNT (test code = 1015) 273 K/UL ABSOLUTE NEUTROPHILS (test c ode = 1066) 4.79 K/UL ABSOLUTE LYMPHOCYTES (test c ode = 1067) 1.95 K/UL ABSOLUTE MONOCYTES (test cod e = 1068) 0.56 K/UL ABSOLUTE EOSINOPHILS (test c ode = 1040) 0.30 K/UL ABSOLUTE BASOPHILS (test cod e = 1069) 0.03 K/UL ABS IMMATURE GRANULOCYTES (t est code = 1020) 0.01 K/UL ABS NUCLEATED RBCS (test cod e = 09686) 0.00 K/UL Piero AlvarezLIPID [id number] 00:00:00* Test Item Value Reference Range Interpretation Comme nts CHOLESTEROL (test code = 2210) 137 MG/DL TRIGLYCERIDES (test code = 2232) 135 MG/DL HDL CHOLESTEROL (test code = 2220) 47 MG/DL CALC LDL CHOL (test code = 2237) 68 MG/DL RISK RATIO LDL/HDL (test cod e = 2238) 1.45 RATIO Piero AlvarezCOMPREHENSIVE METABOLIC [id number] 00:00:00* Test Item Value Reference Range Interpretation Comme nts GLUCOSE (test code = 2217) 75 MG/DL BUN (test code = 2208) 10 MG/DL CREATININE (test code = 2214) 0.90 MG/DL eGFR (2020 CKD-EPI) (test code = 26603) 113 ML/MIN/1.73 CALC BUN/CREAT (test code = 2235) 11 RATIO SODIUM (test code = 2231) 141 MEQ/L POTASSIUM (test code = 2228) 4.9 MEQ/L CHLORIDE (test code = 2215) 104 MEQ/L CARBON DIOXIDE (test code = 2206) 26 MEQ/L CALCIUM (test code = 2209) 9.8 MG/DL PROTEIN, TOTAL (test code = 2229) 7.2 G/DL ALBUMIN (test code = 2201) 4.7 G/DL CALC GLOBULIN (test code = 2240) 2.5 G/DL CALC A/G RATIO (test code = 2234) 1.9 RATIO BILIRUBIN, TOTAL (test code = 2207) 0.4 MG/DL ALKALINE PHOSPHATASE (test code = 2204) 78 U/L AST (test code = 2218) 14 U/L ALT (test code = 2219) 13 U/L Piero Garner AustinURINALYSIS W/REFLEX [id number] 00:00:00* Test Item Value Reference Range Interpretation Comme nts COLOR (test code = 1501) YELLOW APPEARANCE (test code = 1502) CLEAR SPECIFIC GRAVITY (test code = 1503) 1.016 LEUKOCYTE ESTERASE (test cod e = 1504) NEGATIVE NITRITE (test code = 1505) NEGATIVE pH (test code = 1506) 6.0 PROTEIN (test code = 1507) NEGATIVE GLUCOSE (test code = 1508) NEGATIVE KETONES (test code = 1509) NEGATIVE UROBILINOGEN (test code = 1510) 0.2 MG/DL BILIRUBIN (test code = 1511) NEGATIVE OCCULT BLOOD (test code = 1512) NEGATIVE Piero AlvarezPSA, [id number] 00:00:00* Test Item Value Reference Range Interpretation Comme nts PSA, TOTAL (test code = 2606) 0.43 NG/ML Piero AlvarezHIV 1/2 4TH GEN, RFLX [id number] 00:00:00* Test Item Value Reference Range Interpretation Comme nts HIV 1/2 4TH GEN, RFLX CONF ( test code = 3514) NON-REACTIVE Piero AlvarezCBC W/AUTO [id number] 00:00:00* Test Item Value Reference Range Interpretation Comme nts WBC (test code = 1001) 7.6 K/UL RBC (test code = 1002) 5.07 M/UL HEMOGLOBIN (test code = 1003) 15.6 G/DL HEMATOCRIT (test code = 1004) 46.8 % MCV (test code = 1005) 92.3 fL MCH (test code = 1006) 30.8 PG MCHC (test code = 1007) 33.3 G/DL RDW (test code = 1038) 12.7 % NEUTROPHILS (test code = 1008) 62.8 % LYMPHOCYTES (test code = 1010) 25.5 % MONOCYTES (test code = 1011) 7.3 % EOSINOPHILS (test code = 1012) 3.9 % BASOPHILS (test code = 1013) 0.4 % IMMATURE GRANULOCYTES (test code = 1036) 0.1 % NUCLEATED RBCS (test code = 1065) 0.0 /100WBC'S PLATELET COUNT (test code = 1015) 273 K/UL ABSOLUTE NEUTROPHILS (test c ode = 1066) 4.79 K/UL ABSOLUTE LYMPHOCYTES (test c ode = 1067) 1.95 K/UL ABSOLUTE MONOCYTES (test cod e = 1068) 0.56 K/UL ABSOLUTE EOSINOPHILS (test c ode = 1040) 0.30 K/UL ABSOLUTE BASOPHILS (test cod e = 1069) 0.03 K/UL ABS IMMATURE GRANULOCYTES (t est code = 1020) 0.01 K/UL ABS NUCLEATED RBCS (test cod e = 34889) 0.00 K/UL Piero AlvarezLIPID [id number] 00:00:00* Test Item Value Reference Range Interpretation Comme nts CHOLESTEROL (test code = 2210) 137 MG/DL TRIGLYCERIDES (test code = 2232) 135 MG/DL HDL CHOLESTEROL (test code = 2220) 47 MG/DL CALC LDL CHOL (test code = 2237) 68 MG/DL RISK RATIO LDL/HDL (test cod e = 2238) 1.45 RATIO Piero AlvarezCOMPREHENSIVE METABOLIC [id number] 00:00:00* Test Item Value Reference Range Interpretation Comme nts GLUCOSE (test code = 2217) 75 MG/DL BUN (test code = 2208) 10 MG/DL CREATININE (test code = 2214) 0.90 MG/DL eGFR (2020 CKD-EPI) (test code = 96290) 113 ML/MIN/1.73 CALC BUN/CREAT (test code = 2235) 11 RATIO SODIUM (test code = 2231) 141 MEQ/L POTASSIUM (test code = 2228) 4.9 MEQ/L CHLORIDE (test code = 2215) 104 MEQ/L CARBON DIOXIDE (test code = 2206) 26 MEQ/L CALCIUM (test code = 2209) 9.8 MG/DL PROTEIN, TOTAL (test code = 2229) 7.2 G/DL ALBUMIN (test code = 2201) 4.7 G/DL CALC GLOBULIN (test code = 2240) 2.5 G/DL CALC A/G RATIO (test code = 2234) 1.9 RATIO BILIRUBIN, TOTAL (test code = 2207) 0.4 MG/DL ALKALINE PHOSPHATASE (test code = 2204) 78 U/L AST (test code = 2218) 14 U/L ALT (test code = 2219) 13 U/L Piero Garner AustinURINALYSIS W/REFLEX [id number] 00:00:00* Test Item Value Reference Range Interpretation Comme nts COLOR (test code = 1501) YELLOW APPEARANCE (test code = 1502) CLEAR SPECIFIC GRAVITY (test code = 1503) 1.016 LEUKOCYTE ESTERASE (test cod e = 1504) NEGATIVE NITRITE (test code = 1505) NEGATIVE pH (test code = 1506) 6.0 PROTEIN (test code = 1507) NEGATIVE GLUCOSE (test code = 1508) NEGATIVE KETONES (test code = 1509) NEGATIVE UROBILINOGEN (test code = 1510) 0.2 MG/DL BILIRUBIN (test code = 1511) NEGATIVE OCCULT BLOOD (test code = 1512) NEGATIVE Piero AlvarezPSA, [id number] 00:00:00* Test Item Value Reference Range Interpretation Comme nts PSA, TOTAL (test code = 2606) 0.43 NG/ML Piero AlvarezHIV 1/2 4TH GEN, RFLX [id number] 00:00:00* Test Item Value Reference Range Interpretation Comme nts HIV 1/2 4TH GEN, RFLX CONF ( test code = 3514) NON-REACTIVE Piero AlvarezCBC W/AUTO [id number] 00:00:00* Test Item Value Reference Range Interpretation Comme nts WBC (test code = 1001) 7.6 K/UL RBC (test code = 1002) 5.07 M/UL HEMOGLOBIN (test code = 1003) 15.6 G/DL HEMATOCRIT (test code = 1004) 46.8 % MCV (test code = 1005) 92.3 fL MCH (test code = 1006) 30.8 PG MCHC (test code = 1007) 33.3 G/DL RDW (test code = 1038) 12.7 % NEUTROPHILS (test code = 1008) 62.8 % LYMPHOCYTES (test code = 1010) 25.5 % MONOCYTES (test code = 1011) 7.3 % EOSINOPHILS (test code = 1012) 3.9 % BASOPHILS (test code = 1013) 0.4 % IMMATURE GRANULOCYTES (test code = 1036) 0.1 % NUCLEATED RBCS (test code = 1065) 0.0 /100WBC'S PLATELET COUNT (test code = 1015) 273 K/UL ABSOLUTE NEUTROPHILS (test c ode = 1066) 4.79 K/UL ABSOLUTE LYMPHOCYTES (test c ode = 1067) 1.95 K/UL ABSOLUTE MONOCYTES (test cod e = 1068) 0.56 K/UL ABSOLUTE EOSINOPHILS (test c ode = 1040) 0.30 K/UL ABSOLUTE BASOPHILS (test cod e = 1069) 0.03 K/UL ABS IMMATURE GRANULOCYTES (t est code = 1020) 0.01 K/UL ABS NUCLEATED RBCS (test cod e = 11588) 0.00 K/UL Piero AlvarezLIPID [id number] 00:00:00* Test Item Value Reference Range Interpretation Comme nts CHOLESTEROL (test code = 2210) 137 MG/DL TRIGLYCERIDES (test code = 2232) 135 MG/DL HDL CHOLESTEROL (test code = 2220) 47 MG/DL CALC LDL CHOL (test code = 2237) 68 MG/DL RISK RATIO LDL/HDL (test cod e = 2238) 1.45 RATIO Piero AlvarezCOMPREHENSIVE METABOLIC [id number] 00:00:00* Test Item Value Reference Range Interpretation Comme nts GLUCOSE (test code = 2217) 75 MG/DL BUN (test code = 2208) 10 MG/DL CREATININE (test code = 2214) 0.90 MG/DL eGFR (2020 CKD-EPI) (test code = 90641) 113 ML/MIN/1.73 CALC BUN/CREAT (test code = 2235) 11 RATIO SODIUM (test code = 2231) 141 MEQ/L POTASSIUM (test code = 2228) 4.9 MEQ/L CHLORIDE (test code = 2215) 104 MEQ/L CARBON DIOXIDE (test code = 2206) 26 MEQ/L CALCIUM (test code = 2209) 9.8 MG/DL PROTEIN, TOTAL (test code = 2229) 7.2 G/DL ALBUMIN (test code = 2201) 4.7 G/DL CALC GLOBULIN (test code = 2240) 2.5 G/DL CALC A/G RATIO (test code = 2234) 1.9 RATIO BILIRUBIN, TOTAL (test code = 2207) 0.4 MG/DL ALKALINE PHOSPHATASE (test code = 2204) 78 U/L AST (test code = 2218) 14 U/L ALT (test code = 2219) 13 U/L Piero Garner AustinURINALYSIS W/REFLEX [id number] 00:00:00* Test Item Value Reference Range Interpretation Comme nts COLOR (test code = 1501) YELLOW APPEARANCE (test code = 1502) CLEAR SPECIFIC GRAVITY (test code = 1503) 1.016 LEUKOCYTE ESTERASE (test cod e = 1504) NEGATIVE NITRITE (test code = 1505) NEGATIVE pH (test code = 1506) 6.0 PROTEIN (test code = 1507) NEGATIVE GLUCOSE (test code = 1508) NEGATIVE KETONES (test code = 1509) NEGATIVE UROBILINOGEN (test code = 1510) 0.2 MG/DL BILIRUBIN (test code = 1511) NEGATIVE OCCULT BLOOD (test code = 1512) NEGATIVE Piero AlvarezPSA, [id number] 00:00:00* Test Item Value Reference Range Interpretation Comme nts PSA, TOTAL (test code = 2606) 0.43 NG/ML Piero AlvarezHIV 1/2 4TH GEN, RFLX [id number] 00:00:00* Test Item Value Reference Range Interpretation Comme nts HIV 1/2 4TH GEN, RFLX CONF ( test code = 3514) NON-REACTIVE Piero AlvarezCBC W/AUTO [id number] 00:00:00* Test Item Value Reference Range Interpretation Comme nts WBC (test code = 1001) 7.6 K/UL RBC (test code = 1002) 5.07 M/UL HEMOGLOBIN (test code = 1003) 15.6 G/DL HEMATOCRIT (test code = 1004) 46.8 % MCV (test code = 1005) 92.3 fL MCH (test code = 1006) 30.8 PG MCHC (test code = 1007) 33.3 G/DL RDW (test code = 1038) 12.7 % NEUTROPHILS (test code = 1008) 62.8 % LYMPHOCYTES (test code = 1010) 25.5 % MONOCYTES (test code = 1011) 7.3 % EOSINOPHILS (test code = 1012) 3.9 % BASOPHILS (test code = 1013) 0.4 % IMMATURE GRANULOCYTES (test code = 1036) 0.1 % NUCLEATED RBCS (test code = 1065) 0.0 /100WBC'S PLATELET COUNT (test code = 1015) 273 K/UL ABSOLUTE NEUTROPHILS (test c ode = 1066) 4.79 K/UL ABSOLUTE LYMPHOCYTES (test c ode = 1067) 1.95 K/UL ABSOLUTE MONOCYTES (test cod e = 1068) 0.56 K/UL ABSOLUTE EOSINOPHILS (test c ode = 1040) 0.30 K/UL ABSOLUTE BASOPHILS (test cod e = 1069) 0.03 K/UL ABS IMMATURE GRANULOCYTES (t est code = 1020) 0.01 K/UL ABS NUCLEATED RBCS (test cod e = 72350) 0.00 K/UL Piero Garner AustinLIPID [id number] 00:00:00* Test Item Value Reference Range Interpretation Comme nts CHOLESTEROL (test code = 2210) 137 MG/DL TRIGLYCERIDES (test code = 2232) 135 MG/DL HDL CHOLESTEROL (test code = 2220) 47 MG/DL CALC LDL CHOL (test code = 2237) 68 MG/DL RISK RATIO LDL/HDL (test cod e = 2238) 1.45 RATIO Piero AlvarezCOMPREHENSIVE METABOLIC [id number] 00:00:00* Test Item Value Reference Range Interpretation Comme nts GLUCOSE (test code = 2217) 75 MG/DL BUN (test code = 2208) 10 MG/DL CREATININE (test code = 2214) 0.90 MG/DL eGFR (2020 CKD-EPI) (test code = 49362) 113 ML/MIN/1.73 CALC BUN/CREAT (test code = 2235) 11 RATIO SODIUM (test code = 2231) 141 MEQ/L POTASSIUM (test code = 2228) 4.9 MEQ/L CHLORIDE (test code = 2215) 104 MEQ/L CARBON DIOXIDE (test code = 2206) 26 MEQ/L CALCIUM (test code = 2209) 9.8 MG/DL PROTEIN, TOTAL (test code = 2229) 7.2 G/DL ALBUMIN (test code = 2201) 4.7 G/DL CALC GLOBULIN (test code = 2240) 2.5 G/DL CALC A/G RATIO (test code = 2234) 1.9 RATIO BILIRUBIN, TOTAL (test code = 2207) 0.4 MG/DL ALKALINE PHOSPHATASE (test code = 2204) 78 U/L AST (test code = 2218) 14 U/L ALT (test code = 2219) 13 U/L Piero Garner AustinURINALYSIS W/REFLEX [id number] 00:00:00* Test Item Value Reference Range Interpretation Comme nts COLOR (test code = 1501) YELLOW APPEARANCE (test code = 1502) CLEAR SPECIFIC GRAVITY (test code = 1503) 1.016 LEUKOCYTE ESTERASE (test cod e = 1504) NEGATIVE NITRITE (test code = 1505) NEGATIVE pH (test code = 1506) 6.0 PROTEIN (test code = 1507) NEGATIVE GLUCOSE (test code = 1508) NEGATIVE KETONES (test code = 1509) NEGATIVE UROBILINOGEN (test code = 1510) 0.2 MG/DL BILIRUBIN (test code = 1511) NEGATIVE OCCULT BLOOD (test code = 1512) NEGATIVE Piero AlvarezPSA, [id number] 00:00:00* Test Item Value Reference Range Interpretation Comme nts PSA, TOTAL (test code = 2606) 0.43 NG/ML Piero AlvarezHIV 1/2 4TH GEN, RFLX [id number] 00:00:00* Test Item Value Reference Range Interpretation Comme nts HIV 1/2 4TH GEN, RFLX CONF ( test code = 3514) NON-REACTIVE Piero AlvarezCBC W/AUTO [id number] 00:00:00* Test Item Value Reference Range Interpretation Comme nts WBC (test code = 1001) 6.0 K/UL RBC (test code = 1002) 5.23 M/UL HEMOGLOBIN (test code = 1003) 15.7 G/DL HEMATOCRIT (test code = 1004) 45.9 % MCV (test code = 1005) 87.8 fL MCH (test code = 1006) 30.0 PG MCHC (test code = 1007) 34.2 G/DL RDW (test code = 1038) 14.1 % NEUTROPHILS (test code = 1008) 54.9 % LYMPHOCYTES (test code = 1010) 35.2 % MONOCYTES (test code = 1011) 8.0 % EOSINOPHILS (test code = 1012) 1.7 % BASOPHILS (test code = 1013) 0.2 % IMMATURE GRANULOCYTES (test code = 1036) 0.0 % NUCLEATED RBCS (test code = 1065) 0.0 /100WBC'S PLATELET COUNT (test code = 1015) 281 K/UL ABSOLUTE NEUTROPHILS (test c ode = 1066) 3.32 K/UL ABSOLUTE LYMPHOCYTES (test c ode = 1067) 2.12 K/UL ABSOLUTE MONOCYTES (test cod e = 1068) 0.48 K/UL ABSOLUTE EOSINOPHILS (test c ode = 1040) 0.10 K/UL ABSOLUTE BASOPHILS (test cod e = 1069) 0.01 K/UL ABS IMMATURE GRANULOCYTES (t est code = 1020) 0.00 K/UL ABS NUCLEATED RBCS (test cod e = 26227) 0.00 K/UL Piero AlvarezLIPID [id number] 00:00:00* Test Item Value Reference Range Interpretation Comme nts CHOLESTEROL (test code = 2210) 96 MG/DL TRIGLYCERIDES (test code = 2232) 119 MG/DL HDL CHOLESTEROL (test code = 2220) 38 MG/DL CALC LDL CHOL (test code = 2237) 37 MG/DL RISK RATIO LDL/HDL (test cod e = 2238) 0.97 RATIO Piero AlvarezCOMPREHENSIVE METABOLIC [id number] 00:00:00* Test Item Value Reference Range Interpretation Comme nts GLUCOSE (test code = 2217) 90 MG/DL BUN (test code = 2208) 10 MG/DL CREATININE (test code = 2214) 1.00 MG/DL eGFR (2020 CKD-EPI) (test co de = 57782) 99 ML/MIN/1.73 CALC BUN/CREAT (test code = 2235) 10 RATIO SODIUM (test code = 2231) 142 MEQ/L POTASSIUM (test code = 2228) 4.3 MEQ/L CHLORIDE (test code = 2215) 103 MEQ/L CARBON DIOXIDE (test code = 2206) 25 MEQ/L CALCIUM (test code = 2209) 10.1 MG/DL PROTEIN, TOTAL (test code = 2229) 7.1 G/DL ALBUMIN (test code = 2201) 5.0 G/DL CALC GLOBULIN (test code = 2240) 2.1 G/DL CALC A/G RATIO (test code = 2234) 2.4 RATIO BILIRUBIN, TOTAL (test code = 2207) 0.8 MG/DL ALKALINE PHOSPHATASE (test code = 2204) 78 U/L AST (test code = 2218) 26 U/L ALT (test code = 2219) 21 U/L Piero Garner AustinURINALYSIS W/REFLEX [id number] 00:00:00* Test Item Value Reference Range Interpretation Comme nts COLOR (test code = 1501) YELLOW APPEARANCE (test code = 1502) CLEAR SPECIFIC GRAVITY (test code = 1503) 1.016 LEUKOCYTE ESTERASE (test cod e = 1504) NEGATIVE NITRITE (test code = 1505) NEGATIVE pH (test code = 1506) 7.0 PROTEIN (test code = 1507) NEGATIVE GLUCOSE (test code = 1508) NEGATIVE KETONES (test code = 1509) NEGATIVE UROBILINOGEN (test code = 1510) 0.2 MG/DL BILIRUBIN (test code = 1511) NEGATIVE OCCULT BLOOD (test code = 1512) NEGATIVE Piero AlvarezHEPATITIS C [id number] 00:00:00* Test Item Value Reference Range Interpretation Comme nts HEPATITIS C ANTIBODY (test c ode = 4675) NON-REACTIVE Piero AlvarezCT/NG, TMA, [id number] 00:00:00* Test Item Value Reference Range Interpretation Comme nts CHLAMYDIA, NAAT, URINE (test code = 56894) NEGATIVE GONORRHEA, NAAT, URINE (test code = 62403) NEGATIVE Piero AlvarezTRICHOMONAS, URINE, [id number] 00:00:00* Test Item Value Reference Range Interpretation Comme nts TRICHOMONAS, NAAT, URINE (te st code = 09619) NEGATIVE Piero [id number] 00:00:00* Test Item Value Reference Range Interpretation Comme nts RPR RESULT (test code = 3501) NON-REACTIVE RPR TITER (test code = 3500) NOT INDIC. TITER Piero AlvarezHIV 1/2 4TH GEN, RFLX [id number] 00:00:00* Test Item Value Reference Range Interpretation Comme nts HIV 1/2 4TH GEN, RFLX CONF ( test code = 3514) NON-REACTIVE Piero AlvarezHERPES SIMPLEX [id number] 00:00:00* Test Item Value Reference Range Interpretation Comme nts HERPES SIMPLEX AB, IgM (test code = 75764) 0.62 INDEX Piero AlvarezHERPES SIMPLEX 1/2 [id number] 00:00:00* Test Item Value Reference Range Interpretation Comme nts HERPES SIMPLEX 1 AB, IgG (te st code = 82274) 12.900 INDEX HERPES SIMPLEX 2 AB, IgG (te st code = 45223) 0.074 INDEX Piero AlvarezCBC W/AUTO [id number] 00:00:00* Test Item Value Reference Range Interpretation Comme nts WBC (test code = 1001) 6.0 K/UL RBC (test code = 1002) 5.23 M/UL HEMOGLOBIN (test code = 1003) 15.7 G/DL HEMATOCRIT (test code = 1004) 45.9 % MCV (test code = 1005) 87.8 fL MCH (test code = 1006) 30.0 PG MCHC (test code = 1007) 34.2 G/DL RDW (test code = 1038) 14.1 % NEUTROPHILS (test code = 1008) 54.9 % LYMPHOCYTES (test code = 1010) 35.2 % MONOCYTES (test code = 1011) 8.0 % EOSINOPHILS (test code = 1012) 1.7 % BASOPHILS (test code = 1013) 0.2 % IMMATURE GRANULOCYTES (test code = 1036) 0.0 % NUCLEATED RBCS (test code = 1065) 0.0 /100WBC'S PLATELET COUNT (test code = 1015) 281 K/UL ABSOLUTE NEUTROPHILS (test c ode = 1066) 3.32 K/UL ABSOLUTE LYMPHOCYTES (test c ode = 1067) 2.12 K/UL ABSOLUTE MONOCYTES (test cod e = 1068) 0.48 K/UL ABSOLUTE EOSINOPHILS (test c ode = 1040) 0.10 K/UL ABSOLUTE BASOPHILS (test cod e = 1069) 0.01 K/UL ABS IMMATURE GRANULOCYTES (t est code = 1020) 0.00 K/UL ABS NUCLEATED RBCS (test cod e = 68866) 0.00 K/UL Piero Patsy AustinLIPID [id number] 00:00:00* Test Item Value Reference Range Interpretation Comme nts CHOLESTEROL (test code = 2210) 96 MG/DL TRIGLYCERIDES (test code = 2232) 119 MG/DL HDL CHOLESTEROL (test code = 2220) 38 MG/DL CALC LDL CHOL (test code = 2237) 37 MG/DL RISK RATIO LDL/HDL (test cod e = 2238) 0.97 RATIO Piero AlvarezCOMPREHENSIVE METABOLIC [id number] 00:00:00* Test Item Value Reference Range Interpretation Comme nts GLUCOSE (test code = 2217) 90 MG/DL BUN (test code = 2208) 10 MG/DL CREATININE (test code = 2214) 1.00 MG/DL eGFR (2020 CKD-EPI) (test co de = 16893) 99 ML/MIN/1.73 CALC BUN/CREAT (test code = 2235) 10 RATIO SODIUM (test code = 2231) 142 MEQ/L POTASSIUM (test code = 2228) 4.3 MEQ/L CHLORIDE (test code = 2215) 103 MEQ/L CARBON DIOXIDE (test code = 2206) 25 MEQ/L CALCIUM (test code = 2209) 10.1 MG/DL PROTEIN, TOTAL (test code = 2229) 7.1 G/DL ALBUMIN (test code = 2201) 5.0 G/DL CALC GLOBULIN (test code = 2240) 2.1 G/DL CALC A/G RATIO (test code = 2234) 2.4 RATIO BILIRUBIN, TOTAL (test code = 2207) 0.8 MG/DL ALKALINE PHOSPHATASE (test code = 2204) 78 U/L AST (test code = 2218) 26 U/L ALT (test code = 2219) 21 U/L Piero Garner AntonioURINALYSIS W/REFLEX [id number] 00:00:00* Test Item Value Reference Range Interpretation Comme nts COLOR (test code = 1501) YELLOW APPEARANCE (test code = 1502) CLEAR SPECIFIC GRAVITY (test code = 1503) 1.016 LEUKOCYTE ESTERASE (test cod e = 1504) NEGATIVE NITRITE (test code = 1505) NEGATIVE pH (test code = 1506) 7.0 PROTEIN (test code = 1507) NEGATIVE GLUCOSE (test code = 1508) NEGATIVE KETONES (test code = 1509) NEGATIVE UROBILINOGEN (test code = 1510) 0.2 MG/DL BILIRUBIN (test code = 1511) NEGATIVE OCCULT BLOOD (test code = 1512) NEGATIVE Piero Garner AntonioHEPATITIS C [id number] 00:00:00* Test Item Value Reference Range Interpretation Comme nts HEPATITIS C ANTIBODY (test c ode = 4675) NON-REACTIVE Piero Garner AntonioCT/NG, TMA, [id number] 00:00:00* Test Item Value Reference Range Interpretation Comme nts CHLAMYDIA, NAAT, URINE (test code = 59659) NEGATIVE GONORRHEA, NAAT, URINE (test code = 51136) NEGATIVE Piero Garner AntonioTRICHOMONAS, URINE, [id number] 00:00:00* Test Item Value Reference Range Interpretation Comme nts TRICHOMONAS, NAAT, URINE (te st code = 09000) NEGATIVE Piero Garner [id number] 00:00:00* Test Item Value Reference Range Interpretation Comme nts RPR RESULT (test code = 3501) NON-REACTIVE RPR TITER (test code = 3500) NOT INDIC. TITER Piero AlvarezHIV 1/2 4TH GEN, RFLX [id number] 00:00:00* Test Item Value Reference Range Interpretation Comme nts HIV 1/2 4TH GEN, RFLX CONF ( test code = 3514) NON-REACTIVE Piero ErwinPES SIMPLEX [id number] 00:00:00* Test Item Value Reference Range Interpretation Comme nts HERPES SIMPLEX AB, IgM (test code = 12301) 0.62 INDEX Piero AlvarezHERPES SIMPLEX 1/2 [id number] 00:00:00* Test Item Value Reference Range Interpretation Comme nts HERPES SIMPLEX 1 AB, IgG (te st code = 54480) 12.900 INDEX HERPES SIMPLEX 2 AB, IgG (te st code = 30534) 0.074 INDEX Piero AlvarezCBC W/AUTO [id number] 00:00:00* Test Item Value Reference Range Interpretation Comme nts WBC (test code = 1001) 6.0 K/UL RBC (test code = 1002) 5.23 M/UL HEMOGLOBIN (test code = 1003) 15.7 G/DL HEMATOCRIT (test code = 1004) 45.9 % MCV (test code = 1005) 87.8 fL MCH (test code = 1006) 30.0 PG MCHC (test code = 1007) 34.2 G/DL RDW (test code = 1038) 14.1 % NEUTROPHILS (test code = 1008) 54.9 % LYMPHOCYTES (test code = 1010) 35.2 % MONOCYTES (test code = 1011) 8.0 % EOSINOPHILS (test code = 1012) 1.7 % BASOPHILS (test code = 1013) 0.2 % IMMATURE GRANULOCYTES (test code = 1036) 0.0 % NUCLEATED RBCS (test code = 1065) 0.0 /100WBC'S PLATELET COUNT (test code = 1015) 281 K/UL ABSOLUTE NEUTROPHILS (test c ode = 1066) 3.32 K/UL ABSOLUTE LYMPHOCYTES (test c ode = 1067) 2.12 K/UL ABSOLUTE MONOCYTES (test cod e = 1068) 0.48 K/UL ABSOLUTE EOSINOPHILS (test c ode = 1040) 0.10 K/UL ABSOLUTE BASOPHILS (test cod e = 1069) 0.01 K/UL ABS IMMATURE GRANULOCYTES (t est code = 1020) 0.00 K/UL ABS NUCLEATED RBCS (test cod e = 00977) 0.00 K/UL Piero AlvarezLIPID [id number] 00:00:00* Test Item Value Reference Range Interpretation Comme nts CHOLESTEROL (test code = 2210) 96 MG/DL TRIGLYCERIDES (test code = 2232) 119 MG/DL HDL CHOLESTEROL (test code = 2220) 38 MG/DL CALC LDL CHOL (test code = 2237) 37 MG/DL RISK RATIO LDL/HDL (test cod e = 2238) 0.97 RATIO Piero AlvarezCOMPREHENSIVE METABOLIC [id number] 00:00:00* Test Item Value Reference Range Interpretation Comme nts GLUCOSE (test code = 2217) 90 MG/DL BUN (test code = 2208) 10 MG/DL CREATININE (test code = 2214) 1.00 MG/DL eGFR (2020 CKD-EPI) (test co de = 46024) 99 ML/MIN/1.73 CALC BUN/CREAT (test code = 2235) 10 RATIO SODIUM (test code = 2231) 142 MEQ/L POTASSIUM (test code = 2228) 4.3 MEQ/L CHLORIDE (test code = 2215) 103 MEQ/L CARBON DIOXIDE (test code = 2206) 25 MEQ/L CALCIUM (test code = 2209) 10.1 MG/DL PROTEIN, TOTAL (test code = 2229) 7.1 G/DL ALBUMIN (test code = 2201) 5.0 G/DL CALC GLOBULIN (test code = 2240) 2.1 G/DL CALC A/G RATIO (test code = 2234) 2.4 RATIO BILIRUBIN, TOTAL (test code = 2207) 0.8 MG/DL ALKALINE PHOSPHATASE (test code = 2204) 78 U/L AST (test code = 2218) 26 U/L ALT (test code = 2219) 21 U/L Piero Garner AustinURINALYSIS W/REFLEX [id number] 00:00:00* Test Item Value Reference Range Interpretation Comme nts COLOR (test code = 1501) YELLOW APPEARANCE (test code = 1502) CLEAR SPECIFIC GRAVITY (test code = 1503) 1.016 LEUKOCYTE ESTERASE (test cod e = 1504) NEGATIVE NITRITE (test code = 1505) NEGATIVE pH (test code = 1506) 7.0 PROTEIN (test code = 1507) NEGATIVE GLUCOSE (test code = 1508) NEGATIVE KETONES (test code = 1509) NEGATIVE UROBILINOGEN (test code = 1510) 0.2 MG/DL BILIRUBIN (test code = 1511) NEGATIVE OCCULT BLOOD (test code = 1512) NEGATIVE Piero AlvarezHEPATITIS C [id number] 00:00:00* Test Item Value Reference Range Interpretation Comme nts HEPATITIS C ANTIBODY (test c ode = 4675) NON-REACTIVE Piero AlvarezCT/NG, TMA, [id number] 00:00:00* Test Item Value Reference Range Interpretation Comme nts CHLAMYDIA, NAAT, URINE (test code = 61528) NEGATIVE GONORRHEA, NAAT, URINE (test code = 54610) NEGATIVE Piero AlvarezTRICHOMONAS, URINE, [id number] 00:00:00* Test Item Value Reference Range Interpretation Comme nts TRICHOMONAS, NAAT, URINE (te st code = 42192) NEGATIVE Piero [id number] 00:00:00* Test Item Value Reference Range Interpretation Comme nts RPR RESULT (test code = 3501) NON-REACTIVE RPR TITER (test code = 3500) NOT INDIC. TITER Piero AlvarezHIV 1/2 4TH GEN, RFLX [id number] 00:00:00* Test Item Value Reference Range Interpretation Comme nts HIV 1/2 4TH GEN, RFLX CONF ( test code = 3514) NON-REACTIVE Piero AlvarezHERPES SIMPLEX [id number] 00:00:00* Test Item Value Reference Range Interpretation Comme nts HERPES SIMPLEX AB, IgM (test code = 77058) 0.62 INDEX Piero AlvarezHERPES SIMPLEX 1/2 [id number] 00:00:00* Test Item Value Reference Range Interpretation Comme nts HERPES SIMPLEX 1 AB, IgG (te st code = 68739) 12.900 INDEX HERPES SIMPLEX 2 AB, IgG (te st code = 86849) 0.074 INDEX Piero AlvarezCBC W/AUTO [id number] 00:00:00* Test Item Value Reference Range Interpretation Comme nts WBC (test code = 1001) 6.0 K/UL RBC (test code = 1002) 5.23 M/UL HEMOGLOBIN (test code = 1003) 15.7 G/DL HEMATOCRIT (test code = 1004) 45.9 % MCV (test code = 1005) 87.8 fL MCH (test code = 1006) 30.0 PG MCHC (test code = 1007) 34.2 G/DL RDW (test code = 1038) 14.1 % NEUTROPHILS (test code = 1008) 54.9 % LYMPHOCYTES (test code = 1010) 35.2 % MONOCYTES (test code = 1011) 8.0 % EOSINOPHILS (test code = 1012) 1.7 % BASOPHILS (test code = 1013) 0.2 % IMMATURE GRANULOCYTES (test code = 1036) 0.0 % NUCLEATED RBCS (test code = 1065) 0.0 /100WBC'S PLATELET COUNT (test code = 1015) 281 K/UL ABSOLUTE NEUTROPHILS (test c ode = 1066) 3.32 K/UL ABSOLUTE LYMPHOCYTES (test c ode = 1067) 2.12 K/UL ABSOLUTE MONOCYTES (test cod e = 1068) 0.48 K/UL ABSOLUTE EOSINOPHILS (test c ode = 1040) 0.10 K/UL ABSOLUTE BASOPHILS (test cod e = 1069) 0.01 K/UL ABS IMMATURE GRANULOCYTES (t est code = 1020) 0.00 K/UL ABS NUCLEATED RBCS (test cod e = 28015) 0.00 K/UL Piero Garner AntonioLIPID [id number] 00:00:00* Test Item Value Reference Range Interpretation Comme nts CHOLESTEROL (test code = 2210) 96 MG/DL TRIGLYCERIDES (test code = 2232) 119 MG/DL HDL CHOLESTEROL (test code = 2220) 38 MG/DL CALC LDL CHOL (test code = 2237) 37 MG/DL RISK RATIO LDL/HDL (test cod e = 2238) 0.97 RATIO Piero AlvarezCOMPREHENSIVE METABOLIC [id number] 00:00:00* Test Item Value Reference Range Interpretation Comme nts GLUCOSE (test code = 2217) 90 MG/DL BUN (test code = 2208) 10 MG/DL CREATININE (test code = 2214) 1.00 MG/DL eGFR (2020 CKD-EPI) (test co de = 23858) 99 ML/MIN/1.73 CALC BUN/CREAT (test code = 2235) 10 RATIO SODIUM (test code = 2231) 142 MEQ/L POTASSIUM (test code = 2228) 4.3 MEQ/L CHLORIDE (test code = 2215) 103 MEQ/L CARBON DIOXIDE (test code = 2206) 25 MEQ/L CALCIUM (test code = 2209) 10.1 MG/DL PROTEIN, TOTAL (test code = 2229) 7.1 G/DL ALBUMIN (test code = 2201) 5.0 G/DL CALC GLOBULIN (test code = 2240) 2.1 G/DL CALC A/G RATIO (test code = 2234) 2.4 RATIO BILIRUBIN, TOTAL (test code = 2207) 0.8 MG/DL ALKALINE PHOSPHATASE (test code = 2204) 78 U/L AST (test code = 2218) 26 U/L ALT (test code = 2219) 21 U/L Piero AlvarezURINALYSIS W/REFLEX [id number] 00:00:00* Test Item Value Reference Range Interpretation Comme nts COLOR (test code = 1501) YELLOW APPEARANCE (test code = 1502) CLEAR SPECIFIC GRAVITY (test code = 1503) 1.016 LEUKOCYTE ESTERASE (test cod e = 1504) NEGATIVE NITRITE (test code = 1505) NEGATIVE pH (test code = 1506) 7.0 PROTEIN (test code = 1507) NEGATIVE GLUCOSE (test code = 1508) NEGATIVE KETONES (test code = 1509) NEGATIVE UROBILINOGEN (test code = 1510) 0.2 MG/DL BILIRUBIN (test code = 1511) NEGATIVE OCCULT BLOOD (test code = 1512) NEGATIVE Piero AlvarezHEPATITIS C [id number] 00:00:00* Test Item Value Reference Range Interpretation Comme nts HEPATITIS C ANTIBODY (test c ode = 4684) NON-REACTIVE Piero AlvarezCT/NG, TMA, [id number] 00:00:00* Test Item Value Reference Range Interpretation Comme nts CHLAMYDIA, NAAT, URINE (test code = 95283) NEGATIVE GONORRHEA, NAAT, URINE (test code = 18577) NEGATIVE Piero AlvarezTRICHOMONAS, URINE, [id number] 00:00:00* Test Item Value Reference Range Interpretation Comme nts TRICHOMONAS, NAAT, URINE (te st code = 23472) NEGATIVE Piero [id number] 00:00:00* Test Item Value Reference Range Interpretation Comme nts RPR RESULT (test code = 3501) NON-REACTIVE RPR TITER (test code = 3500) NOT INDIC. TITER Piero AlvarezHIV 1/2 4TH GEN, RFLX [id number] 00:00:00* Test Item Value Reference Range Interpretation Comme nts HIV 1/2 4TH GEN, RFLX CONF ( test code = 3514) NON-REACTIVE Piero AlvarezHERPES SIMPLEX [id number] 00:00:00* Test Item Value Reference Range Interpretation Comme nts HERPES SIMPLEX AB, IgM (test code = 10588) 0.62 INDEX Piero AlvarezHERPES SIMPLEX 1/2 [id number] 00:00:00* Test Item Value Reference Range Interpretation Comme nts HERPES SIMPLEX 1 AB, IgG (te st code = 76189) 12.900 INDEX HERPES SIMPLEX 2 AB, IgG (te st code = 08559) 0.074 INDEX Piero AlvarezCBC W/AUTO [id number] 00:00:00* Test Item Value Reference Range Interpretation Comme nts WBC (test code = 1001) 6.0 K/UL RBC (test code = 1002) 5.23 M/UL HEMOGLOBIN (test code = 1003) 15.7 G/DL HEMATOCRIT (test code = 1004) 45.9 % MCV (test code = 1005) 87.8 fL MCH (test code = 1006) 30.0 PG MCHC (test code = 1007) 34.2 G/DL RDW (test code = 1038) 14.1 % NEUTROPHILS (test code = 1008) 54.9 % LYMPHOCYTES (test code = 1010) 35.2 % MONOCYTES (test code = 1011) 8.0 % EOSINOPHILS (test code = 1012) 1.7 % BASOPHILS (test code = 1013) 0.2 % IMMATURE GRANULOCYTES (test code = 1036) 0.0 % NUCLEATED RBCS (test code = 1065) 0.0 /100WBC'S PLATELET COUNT (test code = 1015) 281 K/UL ABSOLUTE NEUTROPHILS (test c ode = 1066) 3.32 K/UL ABSOLUTE LYMPHOCYTES (test c ode = 1067) 2.12 K/UL ABSOLUTE MONOCYTES (test cod e = 1068) 0.48 K/UL ABSOLUTE EOSINOPHILS (test c ode = 1040) 0.10 K/UL ABSOLUTE BASOPHILS (test cod e = 1069) 0.01 K/UL ABS IMMATURE GRANULOCYTES (t est code = 1020) 0.00 K/UL ABS NUCLEATED RBCS (test cod e = 39838) 0.00 K/UL Piero Garner AustinLIPID [id number] 00:00:00* Test Item Value Reference Range Interpretation Comme nts CHOLESTEROL (test code = 2210) 96 MG/DL TRIGLYCERIDES (test code = 2232) 119 MG/DL HDL CHOLESTEROL (test code = 2220) 38 MG/DL CALC LDL CHOL (test code = 2237) 37 MG/DL RISK RATIO LDL/HDL (test cod e = 2238) 0.97 RATIO Piero AlvarezCOMPREHENSIVE METABOLIC [id number] 00:00:00* Test Item Value Reference Range Interpretation Comme nts GLUCOSE (test code = 2217) 90 MG/DL BUN (test code = 2208) 10 MG/DL CREATININE (test code = 2214) 1.00 MG/DL eGFR (2020 CKD-EPI) (test co de = 71436) 99 ML/MIN/1.73 CALC BUN/CREAT (test code = 2235) 10 RATIO SODIUM (test code = 2231) 142 MEQ/L POTASSIUM (test code = 2228) 4.3 MEQ/L CHLORIDE (test code = 2215) 103 MEQ/L CARBON DIOXIDE (test code = 2206) 25 MEQ/L CALCIUM (test code = 2209) 10.1 MG/DL PROTEIN, TOTAL (test code = 2229) 7.1 G/DL ALBUMIN (test code = 2201) 5.0 G/DL CALC GLOBULIN (test code = 2240) 2.1 G/DL CALC A/G RATIO (test code = 2234) 2.4 RATIO BILIRUBIN, TOTAL (test code = 2207) 0.8 MG/DL ALKALINE PHOSPHATASE (test code = 2204) 78 U/L AST (test code = 2218) 26 U/L ALT (test code = 2219) 21 U/L Piero AlvarezURINALYSIS W/REFLEX [id number] 00:00:00* Test Item Value Reference Range Interpretation Comme nts COLOR (test code = 1501) YELLOW APPEARANCE (test code = 1502) CLEAR SPECIFIC GRAVITY (test code = 1503) 1.016 LEUKOCYTE ESTERASE (test cod e = 1504) NEGATIVE NITRITE (test code = 1505) NEGATIVE pH (test code = 1506) 7.0 PROTEIN (test code = 1507) NEGATIVE GLUCOSE (test code = 1508) NEGATIVE KETONES (test code = 1509) NEGATIVE UROBILINOGEN (test code = 1510) 0.2 MG/DL BILIRUBIN (test code = 1511) NEGATIVE OCCULT BLOOD (test code = 1512) NEGATIVE Piero AlvarezHEPATITIS C [id number] 00:00:00* Test Item Value Reference Range Interpretation Comme nts HEPATITIS C ANTIBODY (test c ode = 4675) NON-REACTIVE Piero AlvarezCT/NG, TMA, [id number] 00:00:00* Test Item Value Reference Range Interpretation Comme nts CHLAMYDIA, NAAT, URINE (test code = 23500) NEGATIVE GONORRHEA, NAAT, URINE (test code = 65431) NEGATIVE Piero AlvarezTRICHOMONAS, URINE, [id number] 00:00:00* Test Item Value Reference Range Interpretation Comme nts TRICHOMONAS, NAAT, URINE (te st code = 63378) NEGATIVE Piero [id number] 00:00:00* Test Item Value Reference Range Interpretation Comme nts RPR RESULT (test code = 3501) NON-REACTIVE RPR TITER (test code = 3500) NOT INDIC. TITER Piero AlvarezHIV 1/2 4TH GEN, RFLX [id number] 00:00:00* Test Item Value Reference Range Interpretation Comme nts HIV 1/2 4TH GEN, RFLX CONF ( test code = 3514) NON-REACTIVE Piero AlvarezHERPES SIMPLEX [id number] 00:00:00* Test Item Value Reference Range Interpretation Comme nts HERPES SIMPLEX AB, IgM (test code = 53967) 0.62 INDEX Piero AlvarezHERPES SIMPLEX 1/2 [id number] 00:00:00* Test Item Value Reference Range Interpretation Comme nts HERPES SIMPLEX 1 AB, IgG (te st code = 76264) 12.900 INDEX HERPES SIMPLEX 2 AB, IgG (te st code = 48437) 0.074 INDEX Piero AlvarezCBC W/AUTO [id number] 00:00:00* Test Item Value Reference Range Interpretation Comme nts WBC (test code = 1001) 6.0 K/UL RBC (test code = 1002) 5.23 M/UL HEMOGLOBIN (test code = 1003) 15.7 G/DL HEMATOCRIT (test code = 1004) 45.9 % MCV (test code = 1005) 87.8 fL MCH (test code = 1006) 30.0 PG MCHC (test code = 1007) 34.2 G/DL RDW (test code = 1038) 14.1 % NEUTROPHILS (test code = 1008) 54.9 % LYMPHOCYTES (test code = 1010) 35.2 % MONOCYTES (test code = 1011) 8.0 % EOSINOPHILS (test code = 1012) 1.7 % BASOPHILS (test code = 1013) 0.2 % IMMATURE GRANULOCYTES (test code = 1036) 0.0 % NUCLEATED RBCS (test code = 1065) 0.0 /100WBC'S PLATELET COUNT (test code = 1015) 281 K/UL ABSOLUTE NEUTROPHILS (test c ode = 1066) 3.32 K/UL ABSOLUTE LYMPHOCYTES (test c ode = 1067) 2.12 K/UL ABSOLUTE MONOCYTES (test cod e = 1068) 0.48 K/UL ABSOLUTE EOSINOPHILS (test c ode = 1040) 0.10 K/UL ABSOLUTE BASOPHILS (test cod e = 1069) 0.01 K/UL ABS IMMATURE GRANULOCYTES (t est code = 1020) 0.00 K/UL ABS NUCLEATED RBCS (test cod e = 75547) 0.00 K/UL Piero AlvarezLIPID [id number] 00:00:00* Test Item Value Reference Range Interpretation Comme nts CHOLESTEROL (test code = 2210) 96 MG/DL TRIGLYCERIDES (test code = 2232) 119 MG/DL HDL CHOLESTEROL (test code = 2220) 38 MG/DL CALC LDL CHOL (test code = 2237) 37 MG/DL RISK RATIO LDL/HDL (test cod e = 2238) 0.97 RATIO Piero AlvarezCOMPREHENSIVE METABOLIC [id number] 00:00:00* Test Item Value Reference Range Interpretation Comme nts GLUCOSE (test code = 2217) 90 MG/DL BUN (test code = 2208) 10 MG/DL CREATININE (test code = 2214) 1.00 MG/DL eGFR (2020 CKD-EPI) (test co de = 45804) 99 ML/MIN/1.73 CALC BUN/CREAT (test code = 2235) 10 RATIO SODIUM (test code = 2231) 142 MEQ/L POTASSIUM (test code = 2228) 4.3 MEQ/L CHLORIDE (test code = 2215) 103 MEQ/L CARBON DIOXIDE (test code = 2206) 25 MEQ/L CALCIUM (test code = 2209) 10.1 MG/DL PROTEIN, TOTAL (test code = 2229) 7.1 G/DL ALBUMIN (test code = 2201) 5.0 G/DL CALC GLOBULIN (test code = 2240) 2.1 G/DL CALC A/G RATIO (test code = 2234) 2.4 RATIO BILIRUBIN, TOTAL (test code = 2207) 0.8 MG/DL ALKALINE PHOSPHATASE (test code = 2204) 78 U/L AST (test code = 2218) 26 U/L ALT (test code = 2219) 21 U/L Piero Garner AntonioURINALYSIS W/REFLEX [id number] 00:00:00* Test Item Value Reference Range Interpretation Comme nts COLOR (test code = 1501) YELLOW APPEARANCE (test code = 1502) CLEAR SPECIFIC GRAVITY (test code = 1503) 1.016 LEUKOCYTE ESTERASE (test cod e = 1504) NEGATIVE NITRITE (test code = 1505) NEGATIVE pH (test code = 1506) 7.0 PROTEIN (test code = 1507) NEGATIVE GLUCOSE (test code = 1508) NEGATIVE KETONES (test code = 1509) NEGATIVE UROBILINOGEN (test code = 1510) 0.2 MG/DL BILIRUBIN (test code = 1511) NEGATIVE OCCULT BLOOD (test code = 1512) NEGATIVE Piero AlvarezHEPATITIS C [id number] 00:00:00* Test Item Value Reference Range Interpretation Comme nts HEPATITIS C ANTIBODY (test c ode = 4651) NON-REACTIVE Piero Garner AntonioCT/NG, TMA, [id number] 00:00:00* Test Item Value Reference Range Interpretation Comme nts CHLAMYDIA, NAAT, URINE (test code = 94440) NEGATIVE GONORRHEA, NAAT, URINE (test code = 72333) NEGATIVE Piero AlvarezTRICHOMONAS, URINE, [id number] 00:00:00* Test Item Value Reference Range Interpretation Comme nts TRICHOMONAS, NAAT, URINE (te st code = 89862) NEGATIVE Piero [id number] 00:00:00* Test Item Value Reference Range Interpretation Comme nts RPR RESULT (test code = 3501) NON-REACTIVE RPR TITER (test code = 3500) NOT INDIC. TITER Piero AlvarezHIV 1/2 4TH GEN, RFLX [id number] 00:00:00* Test Item Value Reference Range Interpretation Comme vane HIV 1/2 4TH GEN, RFLX CONF ( test code = 3514) NON-REACTIVE Piero AlvarezHERPES SIMPLEX [id number] 00:00:00* Test Item Value Reference Range Interpretation Comme nts HERPES SIMPLEX AB, IgM (test code = 27952) 0.62 INDEX Piero AlvarezHERPES SIMPLEX 1/2 [id number] 00:00:00* Test Item Value Reference Range Interpretation Comme nts HERPES SIMPLEX 1 AB, IgG (te st code = 18097) 12.900 INDEX HERPES SIMPLEX 2 AB, IgG (te st code = 31773) 0.074 INDEX Piero AlvarezCBC W/AUTO [id number] 00:00:00* Test Item Value Reference Range Interpretation Comme nts WBC (test code = 1001) 6.0 K/UL RBC (test code = 1002) 5.23 M/UL HEMOGLOBIN (test code = 1003) 15.7 G/DL HEMATOCRIT (test code = 1004) 45.9 % MCV (test code = 1005) 87.8 fL MCH (test code = 1006) 30.0 PG MCHC (test code = 1007) 34.2 G/DL RDW (test code = 1038) 14.1 % NEUTROPHILS (test code = 1008) 54.9 % LYMPHOCYTES (test code = 1010) 35.2 % MONOCYTES (test code = 1011) 8.0 % EOSINOPHILS (test code = 1012) 1.7 % BASOPHILS (test code = 1013) 0.2 % IMMATURE GRANULOCYTES (test code = 1036) 0.0 % NUCLEATED RBCS (test code = 1065) 0.0 /100WBC'S PLATELET COUNT (test code = 1015) 281 K/UL ABSOLUTE NEUTROPHILS (test c ode = 1066) 3.32 K/UL ABSOLUTE LYMPHOCYTES (test c ode = 1067) 2.12 K/UL ABSOLUTE MONOCYTES (test cod e = 1068) 0.48 K/UL ABSOLUTE EOSINOPHILS (test c ode = 1040) 0.10 K/UL ABSOLUTE BASOPHILS (test cod e = 1069) 0.01 K/UL ABS IMMATURE GRANULOCYTES (t est code = 1020) 0.00 K/UL ABS NUCLEATED RBCS (test cod e = 06608) 0.00 K/UL Piero Garner AntonioLIPID [id number] 00:00:00* Test Item Value Reference Range Interpretation Comme nts CHOLESTEROL (test code = 2210) 96 MG/DL TRIGLYCERIDES (test code = 2232) 119 MG/DL HDL CHOLESTEROL (test code = 2220) 38 MG/DL CALC LDL CHOL (test code = 2237) 37 MG/DL RISK RATIO LDL/HDL (test cod e = 2238) 0.97 RATIO Piero AlvarezCOMPREHENSIVE METABOLIC [id number] 00:00:00* Test Item Value Reference Range Interpretation Comme nts GLUCOSE (test code = 2217) 90 MG/DL BUN (test code = 2208) 10 MG/DL CREATININE (test code = 2214) 1.00 MG/DL eGFR (2020 CKD-EPI) (test co de = 65547) 99 ML/MIN/1.73 CALC BUN/CREAT (test code = 2235) 10 RATIO SODIUM (test code = 2231) 142 MEQ/L POTASSIUM (test code = 2228) 4.3 MEQ/L CHLORIDE (test code = 2215) 103 MEQ/L CARBON DIOXIDE (test code = 2206) 25 MEQ/L CALCIUM (test code = 2209) 10.1 MG/DL PROTEIN, TOTAL (test code = 2229) 7.1 G/DL ALBUMIN (test code = 2201) 5.0 G/DL CALC GLOBULIN (test code = 2240) 2.1 G/DL CALC A/G RATIO (test code = 2234) 2.4 RATIO BILIRUBIN, TOTAL (test code = 2207) 0.8 MG/DL ALKALINE PHOSPHATASE (test code = 2204) 78 U/L AST (test code = 2218) 26 U/L ALT (test code = 2219) 21 U/L Piero AlvarezURINALYSIS W/REFLEX [id number] 00:00:00* Test Item Value Reference Range Interpretation Comme nts COLOR (test code = 1501) YELLOW APPEARANCE (test code = 1502) CLEAR SPECIFIC GRAVITY (test code = 1503) 1.016 LEUKOCYTE ESTERASE (test cod e = 1504) NEGATIVE NITRITE (test code = 1505) NEGATIVE pH (test code = 1506) 7.0 PROTEIN (test code = 1507) NEGATIVE GLUCOSE (test code = 1508) NEGATIVE KETONES (test code = 1509) NEGATIVE UROBILINOGEN (test code = 1510) 0.2 MG/DL BILIRUBIN (test code = 1511) NEGATIVE OCCULT BLOOD (test code = 1512) NEGATIVE Piero AlavrezHEPATITIS C [id number] 00:00:00* Test Item Value Reference Range Interpretation Comme vane HEPATITIS C ANTIBODY (test c ode = 4675) NON-REACTIVE Piero AlvarezCT/NG, TMA, [id number] 00:00:00* Test Item Value Reference Range Interpretation Comme nts CHLAMYDIA, NAAT, URINE (test code = 61649) NEGATIVE GONORRHEA, NAAT, URINE (test code = 80310) NEGATIVE Piero AlvarezTRICHOMONAS, URINE, [id number] 00:00:00* Test Item Value Reference Range Interpretation Comme vane TRICHOMONAS, NAAT, URINE (te st code = 35827) NEGATIVE Piero [id number] 00:00:00* Test Item Value Reference Range Interpretation Comme nts RPR RESULT (test code = 3501) NON-REACTIVE RPR TITER (test code = 3500) NOT INDIC. TITER Piero AlvarezHIV 1/2 4TH GEN, RFLX [id number] 00:00:00* Test Item Value Reference Range Interpretation Comme nts HIV 1/2 4TH GEN, RFLX CONF ( test code = 3514) NON-REACTIVE Piero AlvarezHERPES SIMPLEX [id number] 00:00:00* Test Item Value Reference Range Interpretation Comme nts HERPES SIMPLEX AB, IgM (test code = 69859) 0.62 INDEX Piero AlvarezHERPES SIMPLEX 1/2 [id number] 00:00:00* Test Item Value Reference Range Interpretation Comme nts HERPES SIMPLEX 1 AB, IgG (te st code = 95719) 12.900 INDEX HERPES SIMPLEX 2 AB, IgG (te st code = 28770) 0.074 INDEX Piero AlvarezCBC W/AUTO [id number] 00:00:00* Test Item Value Reference Range Interpretation Comme nts WBC (test code = 1001) 6.0 K/UL RBC (test code = 1002) 5.23 M/UL HEMOGLOBIN (test code = 1003) 15.7 G/DL HEMATOCRIT (test code = 1004) 45.9 % MCV (test code = 1005) 87.8 fL MCH (test code = 1006) 30.0 PG MCHC (test code = 1007) 34.2 G/DL RDW (test code = 1038) 14.1 % NEUTROPHILS (test code = 1008) 54.9 % LYMPHOCYTES (test code = 1010) 35.2 % MONOCYTES (test code = 1011) 8.0 % EOSINOPHILS (test code = 1012) 1.7 % BASOPHILS (test code = 1013) 0.2 % IMMATURE GRANULOCYTES (test code = 1036) 0.0 % NUCLEATED RBCS (test code = 1065) 0.0 /100WBC'S PLATELET COUNT (test code = 1015) 281 K/UL ABSOLUTE NEUTROPHILS (test c ode = 1066) 3.32 K/UL ABSOLUTE LYMPHOCYTES (test c ode = 1067) 2.12 K/UL ABSOLUTE MONOCYTES (test cod e = 1068) 0.48 K/UL ABSOLUTE EOSINOPHILS (test c ode = 1040) 0.10 K/UL ABSOLUTE BASOPHILS (test cod e = 1069) 0.01 K/UL ABS IMMATURE GRANULOCYTES (t est code = 1020) 0.00 K/UL ABS NUCLEATED RBCS (test cod e = 33012) 0.00 K/UL Piero AlvarezLIPID [id number] 00:00:00* Test Item Value Reference Range Interpretation Comme nts CHOLESTEROL (test code = 2210) 96 MG/DL TRIGLYCERIDES (test code = 2232) 119 MG/DL HDL CHOLESTEROL (test code = 2220) 38 MG/DL CALC LDL CHOL (test code = 2237) 37 MG/DL RISK RATIO LDL/HDL (test cod e = 2238) 0.97 RATIO Piero AlvarezCOMPREHENSIVE METABOLIC [id number] 00:00:00* Test Item Value Reference Range Interpretation Comme nts GLUCOSE (test code = 2217) 90 MG/DL BUN (test code = 2208) 10 MG/DL CREATININE (test code = 2214) 1.00 MG/DL eGFR (2020 CKD-EPI) (test co de = 69486) 99 ML/MIN/1.73 CALC BUN/CREAT (test code = 2235) 10 RATIO SODIUM (test code = 2231) 142 MEQ/L POTASSIUM (test code = 2228) 4.3 MEQ/L CHLORIDE (test code = 2215) 103 MEQ/L CARBON DIOXIDE (test code = 2206) 25 MEQ/L CALCIUM (test code = 2209) 10.1 MG/DL PROTEIN, TOTAL (test code = 2229) 7.1 G/DL ALBUMIN (test code = 2201) 5.0 G/DL CALC GLOBULIN (test code = 2240) 2.1 G/DL CALC A/G RATIO (test code = 2234) 2.4 RATIO BILIRUBIN, TOTAL (test code = 2207) 0.8 MG/DL ALKALINE PHOSPHATASE (test code = 2204) 78 U/L AST (test code = 2218) 26 U/L ALT (test code = 2219) 21 U/L Piero AlvarezURINALYSIS W/REFLEX [id number] 00:00:00* Test Item Value Reference Range Interpretation Comme nts COLOR (test code = 1501) YELLOW APPEARANCE (test code = 1502) CLEAR SPECIFIC GRAVITY (test code = 1503) 1.016 LEUKOCYTE ESTERASE (test cod e = 1504) NEGATIVE NITRITE (test code = 1505) NEGATIVE pH (test code = 1506) 7.0 PROTEIN (test code = 1507) NEGATIVE GLUCOSE (test code = 1508) NEGATIVE KETONES (test code = 1509) NEGATIVE UROBILINOGEN (test code = 1510) 0.2 MG/DL BILIRUBIN (test code = 1511) NEGATIVE OCCULT BLOOD (test code = 1512) NEGATIVE Piero AlvarezHEPATITIS C [id number] 00:00:00* Test Item Value Reference Range Interpretation Comme nts HEPATITIS C ANTIBODY (test c ode = 4675) NON-REACTIVE Piero AlvarezCT/NG, TMA, [id number] 00:00:00* Test Item Value Reference Range Interpretation Comme nts CHLAMYDIA, NAAT, URINE (test code = 79340) NEGATIVE GONORRHEA, NAAT, URINE (test code = 63012) NEGATIVE Piero AlvarezTRICHOMONAS, URINE, [id number] 00:00:00* Test Item Value Reference Range Interpretation Comme nts TRICHOMONAS, NAAT, URINE (te st code = 38580) NEGATIVE Piero [id number] 00:00:00* Test Item Value Reference Range Interpretation Comme nts RPR RESULT (test code = 3501) NON-REACTIVE RPR TITER (test code = 3500) NOT INDIC. TITER Piero AlvarezHIV 1/2 4TH GEN, RFLX [id number] 00:00:00* Test Item Value Reference Range Interpretation Comme nts HIV 1/2 4TH GEN, RFLX CONF ( test code = 3514) NON-REACTIVE Piero AlvarezHERPES SIMPLEX [id number] 00:00:00* Test Item Value Reference Range Interpretation Comme nts HERPES SIMPLEX AB, IgM (test code = 97368) 0.62 INDEX Piero AlvarezHERPES SIMPLEX 1/2 [id number] 00:00:00* Test Item Value Reference Range Interpretation Comme nts HERPES SIMPLEX 1 AB, IgG (te st code = 22362) 12.900 INDEX HERPES SIMPLEX 2 AB, IgG (te st code = 77704) 0.074 INDEX Piero AlvarezCBC W/AUTO [id number] 00:00:00* Test Item Value Reference Range Interpretation Comme nts WBC (test code = 1001) 6.0 K/UL RBC (test code = 1002) 5.23 M/UL HEMOGLOBIN (test code = 1003) 15.7 G/DL HEMATOCRIT (test code = 1004) 45.9 % MCV (test code = 1005) 87.8 fL MCH (test code = 1006) 30.0 PG MCHC (test code = 1007) 34.2 G/DL RDW (test code = 1038) 14.1 % NEUTROPHILS (test code = 1008) 54.9 % LYMPHOCYTES (test code = 1010) 35.2 % MONOCYTES (test code = 1011) 8.0 % EOSINOPHILS (test code = 1012) 1.7 % BASOPHILS (test code = 1013) 0.2 % IMMATURE GRANULOCYTES (test code = 1036) 0.0 % NUCLEATED RBCS (test code = 1065) 0.0 /100WBC'S PLATELET COUNT (test code = 1015) 281 K/UL ABSOLUTE NEUTROPHILS (test c ode = 1066) 3.32 K/UL ABSOLUTE LYMPHOCYTES (test c ode = 1067) 2.12 K/UL ABSOLUTE MONOCYTES (test cod e = 1068) 0.48 K/UL ABSOLUTE EOSINOPHILS (test c ode = 1040) 0.10 K/UL ABSOLUTE BASOPHILS (test cod e = 1069) 0.01 K/UL ABS IMMATURE GRANULOCYTES (t est code = 1020) 0.00 K/UL ABS NUCLEATED RBCS (test cod e = 55017) 0.00 K/UL Piero AlvarezLIPID [id number] 00:00:00* Test Item Value Reference Range Interpretation Comme nts CHOLESTEROL (test code = 2210) 96 MG/DL TRIGLYCERIDES (test code = 2232) 119 MG/DL HDL CHOLESTEROL (test code = 2220) 38 MG/DL CALC LDL CHOL (test code = 2237) 37 MG/DL RISK RATIO LDL/HDL (test cod e = 2238) 0.97 RATIO Piero Garner AntonioCOMPREHENSIVE METABOLIC [id number] 00:00:00* Test Item Value Reference Range Interpretation Comme nts GLUCOSE (test code = 2217) 90 MG/DL BUN (test code = 2208) 10 MG/DL CREATININE (test code = 2214) 1.00 MG/DL eGFR (2020 CKD-EPI) (test co de = 96480) 99 ML/MIN/1.73 CALC BUN/CREAT (test code = 2235) 10 RATIO SODIUM (test code = 2231) 142 MEQ/L POTASSIUM (test code = 2228) 4.3 MEQ/L CHLORIDE (test code = 2215) 103 MEQ/L CARBON DIOXIDE (test code = 2206) 25 MEQ/L CALCIUM (test code = 2209) 10.1 MG/DL PROTEIN, TOTAL (test code = 2229) 7.1 G/DL ALBUMIN (test code = 2201) 5.0 G/DL CALC GLOBULIN (test code = 2240) 2.1 G/DL CALC A/G RATIO (test code = 2234) 2.4 RATIO BILIRUBIN, TOTAL (test code = 2207) 0.8 MG/DL ALKALINE PHOSPHATASE (test code = 2204) 78 U/L AST (test code = 2218) 26 U/L ALT (test code = 2219) 21 U/L Piero AlvarezURINALYSIS W/REFLEX [id number] 00:00:00* Test Item Value Reference Range Interpretation Comme nts COLOR (test code = 1501) YELLOW APPEARANCE (test code = 1502) CLEAR SPECIFIC GRAVITY (test code = 1503) 1.016 LEUKOCYTE ESTERASE (test cod e = 1504) NEGATIVE NITRITE (test code = 1505) NEGATIVE pH (test code = 1506) 7.0 PROTEIN (test code = 1507) NEGATIVE GLUCOSE (test code = 1508) NEGATIVE KETONES (test code = 1509) NEGATIVE UROBILINOGEN (test code = 1510) 0.2 MG/DL BILIRUBIN (test code = 1511) NEGATIVE OCCULT BLOOD (test code = 1512) NEGATIVE Piero AlvarezHEPATITIS C [id number] 00:00:00* Test Item Value Reference Range Interpretation Comme nts HEPATITIS C ANTIBODY (test c ode = 4675) NON-REACTIVE Piero AlvarezCT/NG, TMA, [id number] 00:00:00* Test Item Value Reference Range Interpretation Comme nts CHLAMYDIA, NAAT, URINE (test code = 27938) NEGATIVE GONORRHEA, NAAT, URINE (test code = 24902) NEGATIVE Piero AlvarezTRICHOMONAS, URINE, [id number] 00:00:00* Test Item Value Reference Range Interpretation Comme nts TRICHOMONAS, NAAT, URINE (te st code = 03879) NEGATIVE Piero [id number] 00:00:00* Test Item Value Reference Range Interpretation Comme nts RPR RESULT (test code = 3501) NON-REACTIVE RPR TITER (test code = 3500) NOT INDIC. TITER Piero AlvarezHIV 1/2 4TH GEN, RFLX [id number] 00:00:00* Test Item Value Reference Range Interpretation Comme nts HIV 1/2 4TH GEN, RFLX CONF ( test code = 3514) NON-REACTIVE Piero ErwinPES SIMPLEX [id number] 00:00:00* Test Item Value Reference Range Interpretation Comme nts HERPES SIMPLEX AB, IgM (test code = 16667) 0.62 INDEX Piero AlvarezHERPES SIMPLEX 1/2 [id number] 00:00:00* Test Item Value Reference Range Interpretation Comme nts HERPES SIMPLEX 1 AB, IgG (te st code = 54344) 12.900 INDEX HERPES SIMPLEX 2 AB, IgG (te st code = 29652) 0.074 INDEX Piero AlvarezCBC W/AUTO [id number] 00:00:00* Test Item Value Reference Range Interpretation Comme nts WBC (test code = 1001) 6.0 K/UL RBC (test code = 1002) 5.23 M/UL HEMOGLOBIN (test code = 1003) 15.7 G/DL HEMATOCRIT (test code = 1004) 45.9 % MCV (test code = 1005) 87.8 fL MCH (test code = 1006) 30.0 PG MCHC (test code = 1007) 34.2 G/DL RDW (test code = 1038) 14.1 % NEUTROPHILS (test code = 1008) 54.9 % LYMPHOCYTES (test code = 1010) 35.2 % MONOCYTES (test code = 1011) 8.0 % EOSINOPHILS (test code = 1012) 1.7 % BASOPHILS (test code = 1013) 0.2 % IMMATURE GRANULOCYTES (test code = 1036) 0.0 % NUCLEATED RBCS (test code = 1065) 0.0 /100WBC'S PLATELET COUNT (test code = 1015) 281 K/UL ABSOLUTE NEUTROPHILS (test c ode = 1066) 3.32 K/UL ABSOLUTE LYMPHOCYTES (test c ode = 1067) 2.12 K/UL ABSOLUTE MONOCYTES (test cod e = 1068) 0.48 K/UL ABSOLUTE EOSINOPHILS (test c ode = 1040) 0.10 K/UL ABSOLUTE BASOPHILS (test cod e = 1069) 0.01 K/UL ABS IMMATURE GRANULOCYTES (t est code = 1020) 0.00 K/UL ABS NUCLEATED RBCS (test cod e = 35167) 0.00 K/UL Piero AlvaerzLIPID [id number] 00:00:00* Test Item Value Reference Range Interpretation Comme nts CHOLESTEROL (test code = 2210) 96 MG/DL TRIGLYCERIDES (test code = 2232) 119 MG/DL HDL CHOLESTEROL (test code = 2220) 38 MG/DL CALC LDL CHOL (test code = 2237) 37 MG/DL RISK RATIO LDL/HDL (test cod e = 2238) 0.97 RATIO Piero AlvarezCOMPREHENSIVE METABOLIC [id number] 00:00:00* Test Item Value Reference Range Interpretation Comme nts GLUCOSE (test code = 2217) 90 MG/DL BUN (test code = 2208) 10 MG/DL CREATININE (test code = 2214) 1.00 MG/DL eGFR (2020 CKD-EPI) (test co de = 45539) 99 ML/MIN/1.73 CALC BUN/CREAT (test code = 2235) 10 RATIO SODIUM (test code = 2231) 142 MEQ/L POTASSIUM (test code = 2228) 4.3 MEQ/L CHLORIDE (test code = 2215) 103 MEQ/L CARBON DIOXIDE (test code = 2206) 25 MEQ/L CALCIUM (test code = 2209) 10.1 MG/DL PROTEIN, TOTAL (test code = 2229) 7.1 G/DL ALBUMIN (test code = 2201) 5.0 G/DL CALC GLOBULIN (test code = 2240) 2.1 G/DL CALC A/G RATIO (test code = 2234) 2.4 RATIO BILIRUBIN, TOTAL (test code = 2207) 0.8 MG/DL ALKALINE PHOSPHATASE (test code = 2204) 78 U/L AST (test code = 2218) 26 U/L ALT (test code = 2219) 21 U/L Piero Garner AustinURINALYSIS W/REFLEX [id number] 00:00:00* Test Item Value Reference Range Interpretation Comme nts COLOR (test code = 1501) YELLOW APPEARANCE (test code = 1502) CLEAR SPECIFIC GRAVITY (test code = 1503) 1.016 LEUKOCYTE ESTERASE (test cod e = 1504) NEGATIVE NITRITE (test code = 1505) NEGATIVE pH (test code = 1506) 7.0 PROTEIN (test code = 1507) NEGATIVE GLUCOSE (test code = 1508) NEGATIVE KETONES (test code = 1509) NEGATIVE UROBILINOGEN (test code = 1510) 0.2 MG/DL BILIRUBIN (test code = 1511) NEGATIVE OCCULT BLOOD (test code = 1512) NEGATIVE Piero AlvarezHEPATITIS C [id number] 00:00:00* Test Item Value Reference Range Interpretation Comme nts HEPATITIS C ANTIBODY (test c ode = 4675) NON-REACTIVE Piero AlvarezCT/NG, TMA, [id number] 00:00:00* Test Item Value Reference Range Interpretation Comme nts CHLAMYDIA, NAAT, URINE (test code = 60205) NEGATIVE GONORRHEA, NAAT, URINE (test code = 08106) NEGATIVE Piero AlvarezTRICHOMONAS, URINE, [id number] 00:00:00* Test Item Value Reference Range Interpretation Comme nts TRICHOMONAS, NAAT, URINE (te st code = 43328) NEGATIVE Piero [id number] 00:00:00* Test Item Value Reference Range Interpretation Comme nts RPR RESULT (test code = 3501) NON-REACTIVE RPR TITER (test code = 3500) NOT INDIC. TITER Piero AlvarezHIV 1/2 4TH GEN, RFLX [id number] 00:00:00* Test Item Value Reference Range Interpretation Comme nts HIV 1/2 4TH GEN, RFLX CONF ( test code = 3514) NON-REACTIVE Piero AlvarezHERPES SIMPLEX [id number] 00:00:00* Test Item Value Reference Range Interpretation Comme nts HERPES SIMPLEX AB, IgM (test code = 36933) 0.62 INDEX Piero AlvarezHERPES SIMPLEX 1/2 [id number] 00:00:00* Test Item Value Reference Range Interpretation Comme nts HERPES SIMPLEX 1 AB, IgG (te st code = 77590) 12.900 INDEX HERPES SIMPLEX 2 AB, IgG (te st code = 20851) 0.074 INDEX Piero AlvarezCOMPREHENSIVE METABOLIC [id number] 00:00:00* Test Item Value Reference Range Interpretation Comme nts GLUCOSE (test code = 2217) 95 MG/DL BUN (test code = 2208) 12 MG/DL CREATININE (test code = 2214) 0.97 MG/DL eGFR (2020 CKD-EPI) (test code = 66420) 104 ML/MIN/1.73 CALC BUN/CREAT (test code = 2235) 12 RATIO SODIUM (test code = 2231) 142 MEQ/L POTASSIUM (test code = 2228) 4.4 MEQ/L CHLORIDE (test code = 2215) 103 MEQ/L CARBON DIOXIDE (test code = 2206) 26 MEQ/L CALCIUM (test code = 2209) 9.8 MG/DL PROTEIN, TOTAL (test code = 2229) 7.1 G/DL ALBUMIN (test code = 2201) 4.8 G/DL CALC GLOBULIN (test code = 2240) 2.3 G/DL CALC A/G RATIO (test code = 2234) 2.1 RATIO BILIRUBIN, TOTAL (test code = 2207) 0.3 MG/DL ALKALINE PHOSPHATASE (test code = 2204) 99 U/L AST (test code = 2218) 49 U/L ALT (test code = 2219) 72 U/L Piero AlvarezLIPID [id number] 00:00:00* Test Item Value Reference Range Interpretation Comme nts CHOLESTEROL (test code = 2210) 146 MG/DL TRIGLYCERIDES (test code = 2232) 337 MG/DL HDL CHOLESTEROL (test code = 2220) 34 MG/DL CALC LDL CHOL (test code = 2237) 71 MG/DL RISK RATIO LDL/HDL (test cod e = 2238) 2.09 RATIO Pieroanabella AlvarezCBC W/AUTO [id number] 00:00:00* Test Item Value Reference Range Interpretation Comme nts WBC (test code = 1001) 7.6 K/UL RBC (test code = 1002) 5.15 M/UL HEMOGLOBIN (test code = 1003) 15.4 G/DL HEMATOCRIT (test code = 1004) 45.2 % MCV (test code = 1005) 87.8 fL MCH (test code = 1006) 29.9 PG MCHC (test code = 1007) 34.1 G/DL RDW (test code = 1038) 14.2 % NEUTROPHILS (test code = 1008) 52.9 % LYMPHOCYTES (test code = 1010) 32.8 % MONOCYTES (test code = 1011) 9.4 % EOSINOPHILS (test code = 1012) 4.2 % BASOPHILS (test code = 1013) 0.4 % IMMATURE GRANULOCYTES (test code = 1036) 0.3 % NUCLEATED RBCS (test code = 1065) 0.0 /100WBC'S PLATELET COUNT (test code = 1015) 235 K/UL ABSOLUTE NEUTROPHILS (test c ode = 1066) 4.01 K/UL ABSOLUTE LYMPHOCYTES (test c ode = 1067) 2.49 K/UL ABSOLUTE MONOCYTES (test cod e = 1068) 0.71 K/UL ABSOLUTE EOSINOPHILS (test c ode = 1040) 0.32 K/UL ABSOLUTE BASOPHILS (test cod e = 1069) 0.03 K/UL ABS IMMATURE GRANULOCYTES (t est code = 1020) 0.02 K/UL ABS NUCLEATED RBCS (test cod e = 45199) 0.00 K/UL Piero Garner AustinURINALYSIS W/REFLEX [id number] 00:00:00* Test Item Value Reference Range Interpretation Comme nts COLOR (test code = 1501) YELLOW APPEARANCE (test code = 1502) CLEAR SPECIFIC GRAVITY (test code = 1503) 1.020 LEUKOCYTE ESTERASE (test cod e = 1504) NEGATIVE NITRITE (test code = 1505) NEGATIVE pH (test code = 1506) 6.0 PROTEIN (test code = 1507) NEGATIVE GLUCOSE (test code = 1508) NEGATIVE KETONES (test code = 1509) NEGATIVE UROBILINOGEN (test code = 1510) 0.2 MG/DL BILIRUBIN (test code = 1511) NEGATIVE OCCULT BLOOD (test code = 1512) NEGATIVE Piero Patsy [id number] 00:00:00* Test Item Value Reference Range Interpretation Comme nts LIPASE (test code = 2058) 47 U/L Piero Patsy AntonioCOMPREHENSIVE METABOLIC [id number] 00:00:00* Test Item Value Reference Range Interpretation Comme nts GLUCOSE (test code = 2217) 95 MG/DL BUN (test code = 2208) 12 MG/DL CREATININE (test code = 2214) 0.97 MG/DL eGFR (2020 CKD-EPI) (test code = 28193) 104 ML/MIN/1.73 CALC BUN/CREAT (test code = 2235) 12 RATIO SODIUM (test code = 2231) 142 MEQ/L POTASSIUM (test code = 2228) 4.4 MEQ/L CHLORIDE (test code = 2215) 103 MEQ/L CARBON DIOXIDE (test code = 2206) 26 MEQ/L CALCIUM (test code = 2209) 9.8 MG/DL PROTEIN, TOTAL (test code = 2229) 7.1 G/DL ALBUMIN (test code = 2201) 4.8 G/DL CALC GLOBULIN (test code = 2240) 2.3 G/DL CALC A/G RATIO (test code = 2234) 2.1 RATIO BILIRUBIN, TOTAL (test code = 2207) 0.3 MG/DL ALKALINE PHOSPHATASE (test code = 2204) 99 U/L AST (test code = 2218) 49 U/L ALT (test code = 2219) 72 U/L Piero AlvarezLIPID [id number] 00:00:00* Test Item Value Reference Range Interpretation Comme nts CHOLESTEROL (test code = 2210) 146 MG/DL TRIGLYCERIDES (test code = 2232) 337 MG/DL HDL CHOLESTEROL (test code = 2220) 34 MG/DL CALC LDL CHOL (test code = 2237) 71 MG/DL RISK RATIO LDL/HDL (test cod e = 2238) 2.09 RATIO Piero AlvarezCBC W/AUTO [id number] 00:00:00* Test Item Value Reference Range Interpretation Comme nts WBC (test code = 1001) 7.6 K/UL RBC (test code = 1002) 5.15 M/UL HEMOGLOBIN (test code = 1003) 15.4 G/DL HEMATOCRIT (test code = 1004) 45.2 % MCV (test code = 1005) 87.8 fL MCH (test code = 1006) 29.9 PG MCHC (test code = 1007) 34.1 G/DL RDW (test code = 1038) 14.2 % NEUTROPHILS (test code = 1008) 52.9 % LYMPHOCYTES (test code = 1010) 32.8 % MONOCYTES (test code = 1011) 9.4 % EOSINOPHILS (test code = 1012) 4.2 % BASOPHILS (test code = 1013) 0.4 % IMMATURE GRANULOCYTES (test code = 1036) 0.3 % NUCLEATED RBCS (test code = 1065) 0.0 /100WBC'S PLATELET COUNT (test code = 1015) 235 K/UL ABSOLUTE NEUTROPHILS (test c ode = 1066) 4.01 K/UL ABSOLUTE LYMPHOCYTES (test c ode = 1067) 2.49 K/UL ABSOLUTE MONOCYTES (test cod e = 1068) 0.71 K/UL ABSOLUTE EOSINOPHILS (test c ode = 1040) 0.32 K/UL ABSOLUTE BASOPHILS (test cod e = 1069) 0.03 K/UL ABS IMMATURE GRANULOCYTES (t est code = 1020) 0.02 K/UL ABS NUCLEATED RBCS (test cod e = 88929) 0.00 K/UL Piero F AustinURINALYSIS W/REFLEX [id number] 00:00:00* Test Item Value Reference Range Interpretation Comme nts COLOR (test code = 1501) YELLOW APPEARANCE (test code = 1502) CLEAR SPECIFIC GRAVITY (test code = 1503) 1.020 LEUKOCYTE ESTERASE (test cod e = 1504) NEGATIVE NITRITE (test code = 1505) NEGATIVE pH (test code = 1506) 6.0 PROTEIN (test code = 1507) NEGATIVE GLUCOSE (test code = 1508) NEGATIVE KETONES (test code = 1509) NEGATIVE UROBILINOGEN (test code = 1510) 0.2 MG/DL BILIRUBIN (test code = 1511) NEGATIVE OCCULT BLOOD (test code = 1512) NEGATIVE Piero Garner [id number] 00:00:00* Test Item Value Reference Range Interpretation Comme nts LIPASE (test code = 2058) 47 U/L Piero Garner AntonioCOMPREHENSIVE METABOLIC [id number] 00:00:00* Test Item Value Reference Range Interpretation Comme nts GLUCOSE (test code = 2217) 95 MG/DL BUN (test code = 2208) 12 MG/DL CREATININE (test code = 2214) 0.97 MG/DL eGFR (2020 CKD-EPI) (test code = 39598) 104 ML/MIN/1.73 CALC BUN/CREAT (test code = 2235) 12 RATIO SODIUM (test code = 2231) 142 MEQ/L POTASSIUM (test code = 2228) 4.4 MEQ/L CHLORIDE (test code = 2215) 103 MEQ/L CARBON DIOXIDE (test code = 2206) 26 MEQ/L CALCIUM (test code = 2209) 9.8 MG/DL PROTEIN, TOTAL (test code = 2229) 7.1 G/DL ALBUMIN (test code = 2201) 4.8 G/DL CALC GLOBULIN (test code = 2240) 2.3 G/DL CALC A/G RATIO (test code = 2234) 2.1 RATIO BILIRUBIN, TOTAL (test code = 2207) 0.3 MG/DL ALKALINE PHOSPHATASE (test code = 2204) 99 U/L AST (test code = 2218) 49 U/L ALT (test code = 2219) 72 U/L Piero AlvarezLIPID [id number] 00:00:00* Test Item Value Reference Range Interpretation Comme nts CHOLESTEROL (test code = 2210) 146 MG/DL TRIGLYCERIDES (test code = 2232) 337 MG/DL HDL CHOLESTEROL (test code = 2220) 34 MG/DL CALC LDL CHOL (test code = 2237) 71 MG/DL RISK RATIO LDL/HDL (test cod e = 2238) 2.09 RATIO Piero AlvarezCBC W/AUTO [id number] 00:00:00* Test Item Value Reference Range Interpretation Comme nts WBC (test code = 1001) 7.6 K/UL RBC (test code = 1002) 5.15 M/UL HEMOGLOBIN (test code = 1003) 15.4 G/DL HEMATOCRIT (test code = 1004) 45.2 % MCV (test code = 1005) 87.8 fL MCH (test code = 1006) 29.9 PG MCHC (test code = 1007) 34.1 G/DL RDW (test code = 1038) 14.2 % NEUTROPHILS (test code = 1008) 52.9 % LYMPHOCYTES (test code = 1010) 32.8 % MONOCYTES (test code = 1011) 9.4 % EOSINOPHILS (test code = 1012) 4.2 % BASOPHILS (test code = 1013) 0.4 % IMMATURE GRANULOCYTES (test code = 1036) 0.3 % NUCLEATED RBCS (test code = 1065) 0.0 /100WBC'S PLATELET COUNT (test code = 1015) 235 K/UL ABSOLUTE NEUTROPHILS (test c ode = 1066) 4.01 K/UL ABSOLUTE LYMPHOCYTES (test c ode = 1067) 2.49 K/UL ABSOLUTE MONOCYTES (test cod e = 1068) 0.71 K/UL ABSOLUTE EOSINOPHILS (test c ode = 1040) 0.32 K/UL ABSOLUTE BASOPHILS (test cod e = 1069) 0.03 K/UL ABS IMMATURE GRANULOCYTES (t est code = 1020) 0.02 K/UL ABS NUCLEATED RBCS (test cod e = 41312) 0.00 K/UL Piero Garner AustinURINALYSIS W/REFLEX [id number] 00:00:00* Test Item Value Reference Range Interpretation Comme nts COLOR (test code = 1501) YELLOW APPEARANCE (test code = 1502) CLEAR SPECIFIC GRAVITY (test code = 1503) 1.020 LEUKOCYTE ESTERASE (test cod e = 1504) NEGATIVE NITRITE (test code = 1505) NEGATIVE pH (test code = 1506) 6.0 PROTEIN (test code = 1507) NEGATIVE GLUCOSE (test code = 1508) NEGATIVE KETONES (test code = 1509) NEGATIVE UROBILINOGEN (test code = 1510) 0.2 MG/DL BILIRUBIN (test code = 1511) NEGATIVE OCCULT BLOOD (test code = 1512) NEGATIVE Piero Garner [id number] 00:00:00* Test Item Value Reference Range Interpretation Comme nts LIPASE (test code = 205) 47 U/L Piero AlvarezCOMPREHENSIVE METABOLIC [id number] 00:00:00* Test Item Value Reference Range Interpretation Comme nts GLUCOSE (test code = 2217) 95 MG/DL BUN (test code = 2208) 12 MG/DL CREATININE (test code = 2214) 0.97 MG/DL eGFR (2020 CKD-EPI) (test code = 87274) 104 ML/MIN/1.73 CALC BUN/CREAT (test code = 2235) 12 RATIO SODIUM (test code = 2231) 142 MEQ/L POTASSIUM (test code = 2228) 4.4 MEQ/L CHLORIDE (test code = 2215) 103 MEQ/L CARBON DIOXIDE (test code = 2206) 26 MEQ/L CALCIUM (test code = 2209) 9.8 MG/DL PROTEIN, TOTAL (test code = 2229) 7.1 G/DL ALBUMIN (test code = 2201) 4.8 G/DL CALC GLOBULIN (test code = 2240) 2.3 G/DL CALC A/G RATIO (test code = 2234) 2.1 RATIO BILIRUBIN, TOTAL (test code = 2207) 0.3 MG/DL ALKALINE PHOSPHATASE (test code = 2204) 99 U/L AST (test code = 2218) 49 U/L ALT (test code = 2219) 72 U/L Piero AlvarezLIPID [id number] 00:00:00* Test Item Value Reference Range Interpretation Comme nts CHOLESTEROL (test code = 2210) 146 MG/DL TRIGLYCERIDES (test code = 2232) 337 MG/DL HDL CHOLESTEROL (test code = 2220) 34 MG/DL CALC LDL CHOL (test code = 2237) 71 MG/DL RISK RATIO LDL/HDL (test cod e = 2238) 2.09 RATIO Piero AlvarezCBC W/AUTO [id number] 00:00:00* Test Item Value Reference Range Interpretation Comme nts WBC (test code = 1001) 7.6 K/UL RBC (test code = 1002) 5.15 M/UL HEMOGLOBIN (test code = 1003) 15.4 G/DL HEMATOCRIT (test code = 1004) 45.2 % MCV (test code = 1005) 87.8 fL MCH (test code = 1006) 29.9 PG MCHC (test code = 1007) 34.1 G/DL RDW (test code = 1038) 14.2 % NEUTROPHILS (test code = 1008) 52.9 % LYMPHOCYTES (test code = 1010) 32.8 % MONOCYTES (test code = 1011) 9.4 % EOSINOPHILS (test code = 1012) 4.2 % BASOPHILS (test code = 1013) 0.4 % IMMATURE GRANULOCYTES (test code = 1036) 0.3 % NUCLEATED RBCS (test code = 1065) 0.0 /100WBC'S PLATELET COUNT (test code = 1015) 235 K/UL ABSOLUTE NEUTROPHILS (test c ode = 1066) 4.01 K/UL ABSOLUTE LYMPHOCYTES (test c ode = 1067) 2.49 K/UL ABSOLUTE MONOCYTES (test cod e = 1068) 0.71 K/UL ABSOLUTE EOSINOPHILS (test c ode = 1040) 0.32 K/UL ABSOLUTE BASOPHILS (test cod e = 1069) 0.03 K/UL ABS IMMATURE GRANULOCYTES (t est code = 1020) 0.02 K/UL ABS NUCLEATED RBCS (test cod e = 08485) 0.00 K/UL Piero AlvarezURINALYSIS W/REFLEX [id number] 00:00:00* Test Item Value Reference Range Interpretation Comme nts COLOR (test code = 1501) YELLOW APPEARANCE (test code = 1502) CLEAR SPECIFIC GRAVITY (test code = 1503) 1.020 LEUKOCYTE ESTERASE (test cod e = 1504) NEGATIVE NITRITE (test code = 1505) NEGATIVE pH (test code = 1506) 6.0 PROTEIN (test code = 1507) NEGATIVE GLUCOSE (test code = 1508) NEGATIVE KETONES (test code = 1509) NEGATIVE UROBILINOGEN (test code = 1510) 0.2 MG/DL BILIRUBIN (test code = 1511) NEGATIVE OCCULT BLOOD (test code = 1512) NEGATIVE Piero Garner [id number] 00:00:00* Test Item Value Reference Range Interpretation Comme nts LIPASE (test code = 2058) 47 U/L Piero Garner AustinCOMPREHENSIVE METABOLIC [id number] 00:00:00* Test Item Value Reference Range Interpretation Comme nts GLUCOSE (test code = 2217) 95 MG/DL BUN (test code = 2208) 12 MG/DL CREATININE (test code = 2214) 0.97 MG/DL eGFR (2020 CKD-EPI) (test code = 85167) 104 ML/MIN/1.73 CALC BUN/CREAT (test code = 2235) 12 RATIO SODIUM (test code = 2231) 142 MEQ/L POTASSIUM (test code = 2228) 4.4 MEQ/L CHLORIDE (test code = 2215) 103 MEQ/L CARBON DIOXIDE (test code = 2206) 26 MEQ/L CALCIUM (test code = 2209) 9.8 MG/DL PROTEIN, TOTAL (test code = 2229) 7.1 G/DL ALBUMIN (test code = 2201) 4.8 G/DL CALC GLOBULIN (test code = 2240) 2.3 G/DL CALC A/G RATIO (test code = 2234) 2.1 RATIO BILIRUBIN, TOTAL (test code = 2207) 0.3 MG/DL ALKALINE PHOSPHATASE (test code = 2204) 99 U/L AST (test code = 2218) 49 U/L ALT (test code = 2219) 72 U/L Piero Garner AustinLIPID [id number] 00:00:00* Test Item Value Reference Range Interpretation Comme nts CHOLESTEROL (test code = 2210) 146 MG/DL TRIGLYCERIDES (test code = 2232) 337 MG/DL HDL CHOLESTEROL (test code = 2220) 34 MG/DL CALC LDL CHOL (test code = 2237) 71 MG/DL RISK RATIO LDL/HDL (test cod e = 2238) 2.09 RATIO Piero AlvarezCBC W/AUTO [id number] 00:00:00* Test Item Value Reference Range Interpretation Comme nts WBC (test code = 1001) 7.6 K/UL RBC (test code = 1002) 5.15 M/UL HEMOGLOBIN (test code = 1003) 15.4 G/DL HEMATOCRIT (test code = 1004) 45.2 % MCV (test code = 1005) 87.8 fL MCH (test code = 1006) 29.9 PG MCHC (test code = 1007) 34.1 G/DL RDW (test code = 1038) 14.2 % NEUTROPHILS (test code = 1008) 52.9 % LYMPHOCYTES (test code = 1010) 32.8 % MONOCYTES (test code = 1011) 9.4 % EOSINOPHILS (test code = 1012) 4.2 % BASOPHILS (test code = 1013) 0.4 % IMMATURE GRANULOCYTES (test code = 1036) 0.3 % NUCLEATED RBCS (test code = 1065) 0.0 /100WBC'S PLATELET COUNT (test code = 1015) 235 K/UL ABSOLUTE NEUTROPHILS (test c ode = 1066) 4.01 K/UL ABSOLUTE LYMPHOCYTES (test c ode = 1067) 2.49 K/UL ABSOLUTE MONOCYTES (test cod e = 1068) 0.71 K/UL ABSOLUTE EOSINOPHILS (test c ode = 1040) 0.32 K/UL ABSOLUTE BASOPHILS (test cod e = 1069) 0.03 K/UL ABS IMMATURE GRANULOCYTES (t est code = 1020) 0.02 K/UL ABS NUCLEATED RBCS (test cod e = 06101) 0.00 K/UL Piero Garner AntonioURINALYSIS W/REFLEX [id number] 00:00:00* Test Item Value Reference Range Interpretation Comme nts COLOR (test code = 1501) YELLOW APPEARANCE (test code = 1502) CLEAR SPECIFIC GRAVITY (test code = 1503) 1.020 LEUKOCYTE ESTERASE (test cod e = 1504) NEGATIVE NITRITE (test code = 1505) NEGATIVE pH (test code = 1506) 6.0 PROTEIN (test code = 1507) NEGATIVE GLUCOSE (test code = 1508) NEGATIVE KETONES (test code = 1509) NEGATIVE UROBILINOGEN (test code = 1510) 0.2 MG/DL BILIRUBIN (test code = 1511) NEGATIVE OCCULT BLOOD (test code = 1512) NEGATIVE Piero [id number] 00:00:00* Test Item Value Reference Range Interpretation Comme nts LIPASE (test code = 2058) 47 U/L Piero AlvarezCOMPREHENSIVE METABOLIC [id number] 00:00:00* Test Item Value Reference Range Interpretation Comme nts GLUCOSE (test code = 2217) 95 MG/DL BUN (test code = 2208) 12 MG/DL CREATININE (test code = 2214) 0.97 MG/DL eGFR (2020 CKD-EPI) (test code = 46708) 104 ML/MIN/1.73 CALC BUN/CREAT (test code = 2235) 12 RATIO SODIUM (test code = 2231) 142 MEQ/L POTASSIUM (test code = 2228) 4.4 MEQ/L CHLORIDE (test code = 2215) 103 MEQ/L CARBON DIOXIDE (test code = 2206) 26 MEQ/L CALCIUM (test code = 2209) 9.8 MG/DL PROTEIN, TOTAL (test code = 2229) 7.1 G/DL ALBUMIN (test code = 2201) 4.8 G/DL CALC GLOBULIN (test code = 2240) 2.3 G/DL CALC A/G RATIO (test code = 2234) 2.1 RATIO BILIRUBIN, TOTAL (test code = 2207) 0.3 MG/DL ALKALINE PHOSPHATASE (test code = 2204) 99 U/L AST (test code = 2218) 49 U/L ALT (test code = 2219) 72 U/L Piero AlvarezLIPID [id number] 00:00:00* Test Item Value Reference Range Interpretation Comme nts CHOLESTEROL (test code = 2210) 146 MG/DL TRIGLYCERIDES (test code = 2232) 337 MG/DL HDL CHOLESTEROL (test code = 2220) 34 MG/DL CALC LDL CHOL (test code = 2237) 71 MG/DL RISK RATIO LDL/HDL (test cod e = 2238) 2.09 RATIO Piero AlvarezCBC W/AUTO [id number] 00:00:00* Test Item Value Reference Range Interpretation Comme nts WBC (test code = 1001) 7.6 K/UL RBC (test code = 1002) 5.15 M/UL HEMOGLOBIN (test code = 1003) 15.4 G/DL HEMATOCRIT (test code = 1004) 45.2 % MCV (test code = 1005) 87.8 fL MCH (test code = 1006) 29.9 PG MCHC (test code = 1007) 34.1 G/DL RDW (test code = 1038) 14.2 % NEUTROPHILS (test code = 1008) 52.9 % LYMPHOCYTES (test code = 1010) 32.8 % MONOCYTES (test code = 1011) 9.4 % EOSINOPHILS (test code = 1012) 4.2 % BASOPHILS (test code = 1013) 0.4 % IMMATURE GRANULOCYTES (test code = 1036) 0.3 % NUCLEATED RBCS (test code = 1065) 0.0 /100WBC'S PLATELET COUNT (test code = 1015) 235 K/UL ABSOLUTE NEUTROPHILS (test c ode = 1066) 4.01 K/UL ABSOLUTE LYMPHOCYTES (test c ode = 1067) 2.49 K/UL ABSOLUTE MONOCYTES (test cod e = 1068) 0.71 K/UL ABSOLUTE EOSINOPHILS (test c ode = 1040) 0.32 K/UL ABSOLUTE BASOPHILS (test cod e = 1069) 0.03 K/UL ABS IMMATURE GRANULOCYTES (t est code = 1020) 0.02 K/UL ABS NUCLEATED RBCS (test cod e = 91224) 0.00 K/UL Pieroanabella AlvarezURINALYSIS W/REFLEX [id number] 00:00:00* Test Item Value Reference Range Interpretation Comme nts COLOR (test code = 1501) YELLOW APPEARANCE (test code = 1502) CLEAR SPECIFIC GRAVITY (test code = 1503) 1.020 LEUKOCYTE ESTERASE (test cod e = 1504) NEGATIVE NITRITE (test code = 1505) NEGATIVE pH (test code = 1506) 6.0 PROTEIN (test code = 1507) NEGATIVE GLUCOSE (test code = 1508) NEGATIVE KETONES (test code = 1509) NEGATIVE UROBILINOGEN (test code = 1510) 0.2 MG/DL BILIRUBIN (test code = 1511) NEGATIVE OCCULT BLOOD (test code = 1512) NEGATIVE Pieroanabella [id number] 00:00:00* Test Item Value Reference Range Interpretation Comme nts LIPASE (test code = 2057) 47 U/L Piero AlvarezCOMPREHENSIVE METABOLIC [id number] 00:00:00* Test Item Value Reference Range Interpretation Comme nts GLUCOSE (test code = 2217) 95 MG/DL BUN (test code = 2208) 12 MG/DL CREATININE (test code = 2214) 0.97 MG/DL eGFR (2020 CKD-EPI) (test code = 28730) 104 ML/MIN/1.73 CALC BUN/CREAT (test code = 2235) 12 RATIO SODIUM (test code = 2231) 142 MEQ/L POTASSIUM (test code = 2228) 4.4 MEQ/L CHLORIDE (test code = 2215) 103 MEQ/L CARBON DIOXIDE (test code = 2206) 26 MEQ/L CALCIUM (test code = 2209) 9.8 MG/DL PROTEIN, TOTAL (test code = 2229) 7.1 G/DL ALBUMIN (test code = 2201) 4.8 G/DL CALC GLOBULIN (test code = 2240) 2.3 G/DL CALC A/G RATIO (test code = 2234) 2.1 RATIO BILIRUBIN, TOTAL (test code = 2207) 0.3 MG/DL ALKALINE PHOSPHATASE (test code = 2204) 99 U/L AST (test code = 2218) 49 U/L ALT (test code = 2219) 72 U/L Piero AlvarezLIPID [id number] 00:00:00* Test Item Value Reference Range Interpretation Comme nts CHOLESTEROL (test code = 2210) 146 MG/DL TRIGLYCERIDES (test code = 2232) 337 MG/DL HDL CHOLESTEROL (test code = 2220) 34 MG/DL CALC LDL CHOL (test code = 2237) 71 MG/DL RISK RATIO LDL/HDL (test cod e = 2238) 2.09 RATIO Piero Garner AntonioCBC W/AUTO [id number] 00:00:00* Test Item Value Reference Range Interpretation Comme nts WBC (test code = 1001) 7.6 K/UL RBC (test code = 1002) 5.15 M/UL HEMOGLOBIN (test code = 1003) 15.4 G/DL HEMATOCRIT (test code = 1004) 45.2 % MCV (test code = 1005) 87.8 fL MCH (test code = 1006) 29.9 PG MCHC (test code = 1007) 34.1 G/DL RDW (test code = 1038) 14.2 % NEUTROPHILS (test code = 1008) 52.9 % LYMPHOCYTES (test code = 1010) 32.8 % MONOCYTES (test code = 1011) 9.4 % EOSINOPHILS (test code = 1012) 4.2 % BASOPHILS (test code = 1013) 0.4 % IMMATURE GRANULOCYTES (test code = 1036) 0.3 % NUCLEATED RBCS (test code = 1065) 0.0 /100WBC'S PLATELET COUNT (test code = 1015) 235 K/UL ABSOLUTE NEUTROPHILS (test c ode = 1066) 4.01 K/UL ABSOLUTE LYMPHOCYTES (test c ode = 1067) 2.49 K/UL ABSOLUTE MONOCYTES (test cod e = 1068) 0.71 K/UL ABSOLUTE EOSINOPHILS (test c ode = 1040) 0.32 K/UL ABSOLUTE BASOPHILS (test cod e = 1069) 0.03 K/UL ABS IMMATURE GRANULOCYTES (t est code = 1020) 0.02 K/UL ABS NUCLEATED RBCS (test cod e = 40671) 0.00 K/UL Piero AlvarezURINALYSIS W/REFLEX [id number] 00:00:00* Test Item Value Reference Range Interpretation Comme nts COLOR (test code = 1501) YELLOW APPEARANCE (test code = 1502) CLEAR SPECIFIC GRAVITY (test code = 1503) 1.020 LEUKOCYTE ESTERASE (test cod e = 1504) NEGATIVE NITRITE (test code = 1505) NEGATIVE pH (test code = 1506) 6.0 PROTEIN (test code = 1507) NEGATIVE GLUCOSE (test code = 1508) NEGATIVE KETONES (test code = 1509) NEGATIVE UROBILINOGEN (test code = 1510) 0.2 MG/DL BILIRUBIN (test code = 1511) NEGATIVE OCCULT BLOOD (test code = 1512) NEGATIVE Piero [id number] 00:00:00* Test Item Value Reference Range Interpretation Comme nts LIPASE (test code = 2058) 47 U/L Piero AlvarezCOMPREHENSIVE METABOLIC [id number] 00:00:00* Test Item Value Reference Range Interpretation Comme nts GLUCOSE (test code = 2217) 95 MG/DL BUN (test code = 2208) 12 MG/DL CREATININE (test code = 2214) 0.97 MG/DL eGFR (2020 CKD-EPI) (test code = 62193) 104 ML/MIN/1.73 CALC BUN/CREAT (test code = 2235) 12 RATIO SODIUM (test code = 2231) 142 MEQ/L POTASSIUM (test code = 2228) 4.4 MEQ/L CHLORIDE (test code = 2215) 103 MEQ/L CARBON DIOXIDE (test code = 2206) 26 MEQ/L CALCIUM (test code = 2209) 9.8 MG/DL PROTEIN, TOTAL (test code = 2229) 7.1 G/DL ALBUMIN (test code = 2201) 4.8 G/DL CALC GLOBULIN (test code = 2240) 2.3 G/DL CALC A/G RATIO (test code = 2234) 2.1 RATIO BILIRUBIN, TOTAL (test code = 2207) 0.3 MG/DL ALKALINE PHOSPHATASE (test code = 2204) 99 U/L AST (test code = 2218) 49 U/L ALT (test code = 2219) 72 U/L Piero AlvarezLIPID [id number] 00:00:00* Test Item Value Reference Range Interpretation Comme nts CHOLESTEROL (test code = 2210) 146 MG/DL TRIGLYCERIDES (test code = 2232) 337 MG/DL HDL CHOLESTEROL (test code = 2220) 34 MG/DL CALC LDL CHOL (test code = 2237) 71 MG/DL RISK RATIO LDL/HDL (test cod e = 2238) 2.09 RATIO Piero AlvarezCBC W/AUTO [id number] 00:00:00* Test Item Value Reference Range Interpretation Comme nts WBC (test code = 1001) 7.6 K/UL RBC (test code = 1002) 5.15 M/UL HEMOGLOBIN (test code = 1003) 15.4 G/DL HEMATOCRIT (test code = 1004) 45.2 % MCV (test code = 1005) 87.8 fL MCH (test code = 1006) 29.9 PG MCHC (test code = 1007) 34.1 G/DL RDW (test code = 1038) 14.2 % NEUTROPHILS (test code = 1008) 52.9 % LYMPHOCYTES (test code = 1010) 32.8 % MONOCYTES (test code = 1011) 9.4 % EOSINOPHILS (test code = 1012) 4.2 % BASOPHILS (test code = 1013) 0.4 % IMMATURE GRANULOCYTES (test code = 1036) 0.3 % NUCLEATED RBCS (test code = 1065) 0.0 /100WBC'S PLATELET COUNT (test code = 1015) 235 K/UL ABSOLUTE NEUTROPHILS (test c ode = 1066) 4.01 K/UL ABSOLUTE LYMPHOCYTES (test c ode = 1067) 2.49 K/UL ABSOLUTE MONOCYTES (test cod e = 1068) 0.71 K/UL ABSOLUTE EOSINOPHILS (test c ode = 1040) 0.32 K/UL ABSOLUTE BASOPHILS (test cod e = 1069) 0.03 K/UL ABS IMMATURE GRANULOCYTES (t est code = 1020) 0.02 K/UL ABS NUCLEATED RBCS (test cod e = 42092) 0.00 K/UL Piero Garner AustinURINALYSIS W/REFLEX [id number] 00:00:00* Test Item Value Reference Range Interpretation Comme nts COLOR (test code = 1501) YELLOW APPEARANCE (test code = 1502) CLEAR SPECIFIC GRAVITY (test code = 1503) 1.020 LEUKOCYTE ESTERASE (test cod e = 1504) NEGATIVE NITRITE (test code = 1505) NEGATIVE pH (test code = 1506) 6.0 PROTEIN (test code = 1507) NEGATIVE GLUCOSE (test code = 1508) NEGATIVE KETONES (test code = 1509) NEGATIVE UROBILINOGEN (test code = 1510) 0.2 MG/DL BILIRUBIN (test code = 1511) NEGATIVE OCCULT BLOOD (test code = 1512) NEGATIVE Piero Garner [id number] 00:00:00* Test Item Value Reference Range Interpretation Comme nts LIPASE (test code = 2058) 47 U/L Piero F AntonioCOMPREHENSIVE METABOLIC [id number] 00:00:00* Test Item Value Reference Range Interpretation Comme nts GLUCOSE (test code = 2217) 95 MG/DL BUN (test code = 2208) 12 MG/DL CREATININE (test code = 2214) 0.97 MG/DL eGFR (2020 CKD-EPI) (test code = 40052) 104 ML/MIN/1.73 CALC BUN/CREAT (test code = 2235) 12 RATIO SODIUM (test code = 2231) 142 MEQ/L POTASSIUM (test code = 2228) 4.4 MEQ/L CHLORIDE (test code = 2215) 103 MEQ/L CARBON DIOXIDE (test code = 2206) 26 MEQ/L CALCIUM (test code = 2209) 9.8 MG/DL PROTEIN, TOTAL (test code = 2229) 7.1 G/DL ALBUMIN (test code = 2201) 4.8 G/DL CALC GLOBULIN (test code = 2240) 2.3 G/DL CALC A/G RATIO (test code = 2234) 2.1 RATIO BILIRUBIN, TOTAL (test code = 2207) 0.3 MG/DL ALKALINE PHOSPHATASE (test code = 2204) 99 U/L AST (test code = 2218) 49 U/L ALT (test code = 2219) 72 U/L Piero AlvarezLIPID [id number] 00:00:00* Test Item Value Reference Range Interpretation Comme nts CHOLESTEROL (test code = 2210) 146 MG/DL TRIGLYCERIDES (test code = 2232) 337 MG/DL HDL CHOLESTEROL (test code = 2220) 34 MG/DL CALC LDL CHOL (test code = 2237) 71 MG/DL RISK RATIO LDL/HDL (test cod e = 2238) 2.09 RATIO Piero Garner AntonioCBC W/AUTO [id number] 00:00:00* Test Item Value Reference Range Interpretation Comme nts WBC (test code = 1001) 7.6 K/UL RBC (test code = 1002) 5.15 M/UL HEMOGLOBIN (test code = 1003) 15.4 G/DL HEMATOCRIT (test code = 1004) 45.2 % MCV (test code = 1005) 87.8 fL MCH (test code = 1006) 29.9 PG MCHC (test code = 1007) 34.1 G/DL RDW (test code = 1038) 14.2 % NEUTROPHILS (test code = 1008) 52.9 % LYMPHOCYTES (test code = 1010) 32.8 % MONOCYTES (test code = 1011) 9.4 % EOSINOPHILS (test code = 1012) 4.2 % BASOPHILS (test code = 1013) 0.4 % IMMATURE GRANULOCYTES (test code = 1036) 0.3 % NUCLEATED RBCS (test code = 1065) 0.0 /100WBC'S PLATELET COUNT (test code = 1015) 235 K/UL ABSOLUTE NEUTROPHILS (test c ode = 1066) 4.01 K/UL ABSOLUTE LYMPHOCYTES (test c ode = 1067) 2.49 K/UL ABSOLUTE MONOCYTES (test cod e = 1068) 0.71 K/UL ABSOLUTE EOSINOPHILS (test c ode = 1040) 0.32 K/UL ABSOLUTE BASOPHILS (test cod e = 1069) 0.03 K/UL ABS IMMATURE GRANULOCYTES (t est code = 1020) 0.02 K/UL ABS NUCLEATED RBCS (test cod e = 68746) 0.00 K/UL Piero Garner AntonioURINALYSIS W/REFLEX [id number] 00:00:00* Test Item Value Reference Range Interpretation Comme nts COLOR (test code = 1501) YELLOW APPEARANCE (test code = 1502) CLEAR SPECIFIC GRAVITY (test code = 1503) 1.020 LEUKOCYTE ESTERASE (test cod e = 1504) NEGATIVE NITRITE (test code = 1505) NEGATIVE pH (test code = 1506) 6.0 PROTEIN (test code = 1507) NEGATIVE GLUCOSE (test code = 1508) NEGATIVE KETONES (test code = 1509) NEGATIVE UROBILINOGEN (test code = 1510) 0.2 MG/DL BILIRUBIN (test code = 1511) NEGATIVE OCCULT BLOOD (test code = 1512) NEGATIVE Piero [id number] 00:00:00* Test Item Value Reference Range Interpretation Comme nts LIPASE (test code = 2058) 47 U/L Piero Garner AntonioCOMPREHENSIVE METABOLIC [id number] 00:00:00* Test Item Value Reference Range Interpretation Comme nts GLUCOSE (test code = 2217) 95 MG/DL BUN (test code = 2208) 12 MG/DL CREATININE (test code = 2214) 0.97 MG/DL eGFR (2020 CKD-EPI) (test code = 33110) 104 ML/MIN/1.73 CALC BUN/CREAT (test code = 2235) 12 RATIO SODIUM (test code = 2231) 142 MEQ/L POTASSIUM (test code = 2228) 4.4 MEQ/L CHLORIDE (test code = 2215) 103 MEQ/L CARBON DIOXIDE (test code = 2206) 26 MEQ/L CALCIUM (test code = 2209) 9.8 MG/DL PROTEIN, TOTAL (test code = 2229) 7.1 G/DL ALBUMIN (test code = 2201) 4.8 G/DL CALC GLOBULIN (test code = 2240) 2.3 G/DL CALC A/G RATIO (test code = 2234) 2.1 RATIO BILIRUBIN, TOTAL (test code = 2207) 0.3 MG/DL ALKALINE PHOSPHATASE (test code = 2204) 99 U/L AST (test code = 2218) 49 U/L ALT (test code = 2219) 72 U/L Piero AlvarezLIPID [id number] 00:00:00* Test Item Value Reference Range Interpretation Comme nts CHOLESTEROL (test code = 2210) 146 MG/DL TRIGLYCERIDES (test code = 2232) 337 MG/DL HDL CHOLESTEROL (test code = 2220) 34 MG/DL CALC LDL CHOL (test code = 2237) 71 MG/DL RISK RATIO LDL/HDL (test cod e = 2238) 2.09 RATIO Piero AlvarezCBC W/AUTO [id number] 00:00:00* Test Item Value Reference Range Interpretation Comme nts WBC (test code = 1001) 7.6 K/UL RBC (test code = 1002) 5.15 M/UL HEMOGLOBIN (test code = 1003) 15.4 G/DL HEMATOCRIT (test code = 1004) 45.2 % MCV (test code = 1005) 87.8 fL MCH (test code = 1006) 29.9 PG MCHC (test code = 1007) 34.1 G/DL RDW (test code = 1038) 14.2 % NEUTROPHILS (test code = 1008) 52.9 % LYMPHOCYTES (test code = 1010) 32.8 % MONOCYTES (test code = 1011) 9.4 % EOSINOPHILS (test code = 1012) 4.2 % BASOPHILS (test code = 1013) 0.4 % IMMATURE GRANULOCYTES (test code = 1036) 0.3 % NUCLEATED RBCS (test code = 1065) 0.0 /100WBC'S PLATELET COUNT (test code = 1015) 235 K/UL ABSOLUTE NEUTROPHILS (test c ode = 1066) 4.01 K/UL ABSOLUTE LYMPHOCYTES (test c ode = 1067) 2.49 K/UL ABSOLUTE MONOCYTES (test cod e = 1068) 0.71 K/UL ABSOLUTE EOSINOPHILS (test c ode = 1040) 0.32 K/UL ABSOLUTE BASOPHILS (test cod e = 1069) 0.03 K/UL ABS IMMATURE GRANULOCYTES (t est code = 1020) 0.02 K/UL ABS NUCLEATED RBCS (test cod e = 04736) 0.00 K/UL Piero Garner AustinURINALYSIS W/REFLEX [id number] 00:00:00* Test Item Value Reference Range Interpretation Comme nts COLOR (test code = 1501) YELLOW APPEARANCE (test code = 1502) CLEAR SPECIFIC GRAVITY (test code = 1503) 1.020 LEUKOCYTE ESTERASE (test cod e = 1504) NEGATIVE NITRITE (test code = 1505) NEGATIVE pH (test code = 1506) 6.0 PROTEIN (test code = 1507) NEGATIVE GLUCOSE (test code = 1508) NEGATIVE KETONES (test code = 1509) NEGATIVE UROBILINOGEN (test code = 1510) 0.2 MG/DL BILIRUBIN (test code = 1511) NEGATIVE OCCULT BLOOD (test code = 1512) NEGATIVE Piero Garner [id number] 00:00:00* Test Item Value Reference Range Interpretation Comme nts LIPASE (test code = 2058) 47 U/L Piero F AustinURIC [id number] 00:00:00* Test Item Value Reference Range Interpretation Comme nts URIC ACID (test code = 2233) 9.0 MG/DL Piero F AustinSEDIMENTATION [id number] 00:00:00* Test Item Value Reference Range Interpretation Comme nts SEDIMENTATION RATE (test cod e = 1017) 8 MM/HOUR Piero F AustinRHEUMATOID FACTOR, [id number] 00:00:00* Test Item Value Reference Range Interpretation Comme nts RHEUMATOID FACTOR, QUANT (te st code = 3502) <10 IU/ML Piero F AustinURIC [id number] 00:00:00* Test Item Value Reference Range Interpretation Comme nts URIC ACID (test code = 2233) 9.0 MG/DL Piero F AustinSEDIMENTATION [id number] 00:00:00* Test Item Value Reference Range Interpretation Comme nts SEDIMENTATION RATE (test cod e = 1017) 8 MM/HOUR Piero F AustinRHEUMATOID FACTOR, [id number] 00:00:00* Test Item Value Reference Range Interpretation Comme nts RHEUMATOID FACTOR, QUANT (te st code = 3502) <10 IU/ML Piero F AustinURIC [id number] 00:00:00* Test Item Value Reference Range Interpretation Comme nts URIC ACID (test code = 2233) 9.0 MG/DL Piero F AustinSEDIMENTATION [id number] 00:00:00* Test Item Value Reference Range Interpretation Comme nts SEDIMENTATION RATE (test cod e = 1017) 8 MM/HOUR Piero F AustinRHEUMATOID FACTOR, [id number] 00:00:00* Test Item Value Reference Range Interpretation Comme nts RHEUMATOID FACTOR, QUANT (te st code = 3502) <10 IU/ML Piero F AustinURIC [id number] 00:00:00* Test Item Value Reference Range Interpretation Comme nts URIC ACID (test code = 2233) 9.0 MG/DL Piero F AustinSEDIMENTATION [id number] 00:00:00* Test Item Value Reference Range Interpretation Comme nts SEDIMENTATION RATE (test cod e = 1017) 8 MM/HOUR Piero F AustinRHEUMATOID FACTOR, [id number] 00:00:00* Test Item Value Reference Range Interpretation Comme nts RHEUMATOID FACTOR, QUANT (te st code = 3502) <10 IU/ML Piero F AustinURIC [id number] 00:00:00* Test Item Value Reference Range Interpretation Comme nts URIC ACID (test code = 2233) 9.0 MG/DL Piero F AustinSEDIMENTATION [id number] 00:00:00* Test Item Value Reference Range Interpretation Comme nts SEDIMENTATION RATE (test cod e = 1017) 8 MM/HOUR Piero F AustinRHEUMATOID FACTOR, [id number] 00:00:00* Test Item Value Reference Range Interpretation Comme nts RHEUMATOID FACTOR, QUANT (te st code = 3502) <10 IU/ML Piero F AustinURIC [id number] 00:00:00* Test Item Value Reference Range Interpretation Comme nts URIC ACID (test code = 2233) 9.0 MG/DL Piero F AustinSEDIMENTATION [id number] 00:00:00* Test Item Value Reference Range Interpretation Comme nts SEDIMENTATION RATE (test cod e = 1017) 8 MM/HOUR Piero F AustinRHEUMATOID FACTOR, [id number] 00:00:00* Test Item Value Reference Range Interpretation Comme nts RHEUMATOID FACTOR, QUANT (te st code = 3502) <10 IU/ML Piero F AustinURIC [id number] 00:00:00* Test Item Value Reference Range Interpretation Comme nts URIC ACID (test code = 2233) 9.0 MG/DL Piero F AustinSEDIMENTATION [id number] 00:00:00* Test Item Value Reference Range Interpretation Comme nts SEDIMENTATION RATE (test cod e = 1017) 8 MM/HOUR Piero F AustinRHEUMATOID FACTOR, [id number] 00:00:00* Test Item Value Reference Range Interpretation Comme nts RHEUMATOID FACTOR, QUANT (te st code = 3502) <10 IU/ML Piero F AustinURIC [id number] 00:00:00* Test Item Value Reference Range Interpretation Comme nts URIC ACID (test code = 2233) 9.0 MG/DL Piero F AustinSEDIMENTATION [id number] 00:00:00* Test Item Value Reference Range Interpretation Comme nts SEDIMENTATION RATE (test cod e = 1017) 8 MM/HOUR Piero F AustinRHEUMATOID FACTOR, [id number] 00:00:00* Test Item Value Reference Range Interpretation Comme nts RHEUMATOID FACTOR, QUANT (te st code = 3502) <10 IU/ML Piero F AustinURIC [id number] 00:00:00* Test Item Value Reference Range Interpretation Comme nts URIC ACID (test code = 2233) 9.0 MG/DL Piero F AustinSEDIMENTATION [id number] 00:00:00* Test Item Value Reference Range Interpretation Comme nts SEDIMENTATION RATE (test cod e = 1017) 8 MM/HOUR Piero F AustinRHEUMATOID FACTOR, [id number] 00:00:00* Test Item Value Reference Range Interpretation Comme nts RHEUMATOID FACTOR, QUANT (te st code = 3502) <10 IU/ML Piero F AustinURIC [id number] 00:00:00* Test Item Value Reference Range Interpretation Comme nts URIC ACID (test code = 2233) 9.0 MG/DL Piero AlvarezSEDIMENTATION [id number] 00:00:00* Test Item Value Reference Range Interpretation Commvalencia cifuentes SEDIMENTATION RATE (test cod e = 1017) 8 MM/HOUR Piero AlvarezRHEUMATOID FACTOR, [id number] 00:00:00* Test Item Value Reference Range Interpretation Commvalencia cifuentes RHEUMATOID FACTOR, QUANT (te st code = 3502) <10 IU/ML Piero AlvarezXR HAND <3 VW [id number] 20:22:41HISTORY: ?Pain. FINDINGS: AP, lateral, oblique views of right hand showed no acute fractureor dislocation. No significant changes of arthritis or aggressive bonelesions seen. Soft tissue swellings suspected in the dorsal aspect of thehand. CONCLUSIONS: No acute fracture or dislocation in right hand. [facility], Radiant Results Inft User - 11/20/2020 2:23 PM CSTHISTORY: Pain.FINDINGS: AP, lateral, oblique views of right hand showed no acute fractureor dislocation. No significant changes of arthritis or aggressive bonelesions seen. Soft tissue swellings suspected in the dorsal aspect of thehand.CONCLUSIONS: No acute fracture or dislocation in right hand.[facility]MR [facility] RIGHT WO [id number] 20:26:00Interstitial tearing of the supraspinatus tendon with questionablearticular surface extension with underlying humeral head/greater tuberosityedema. Mild tenosynovitis of the biceps tendon with questionable intra-articularmedialization which may be seen with a biceps charissa lesion. Mild subacromial/subdeltoid bursitis. Preliminary Report Dictated by Resident: Susan Escalona I, Manolo Nazario MD., have reviewed this study and agree with the abovereport.EXAM: MRI RIGHT SHOULDER WITHOUT CONTRAST COMPARISON: Comparative chest radiograph 05/01/2015 HISTORY: Shoulder pain, acute, persistent, xray and exam nonspecific TECHNIQUE AND FINDINGS: 1.5T multiplanar multiweighted MR imaging of the right shoulder wasperformed without contrast. BONE AND JOINT:A heterogenous background bone marrow signal is noted. There is mild edemaat the level of the humeral head greater tuberosity. Acromion morphologyis type 2. An os acromiale is present with minimalsurrounding edema. No abnormality is seen at the level of the acromioclavicular joint. Thelabrum and biceps labral anchor are intact. LIGAMENTS AND TENDONS:There is hyperintense T2 signal seen within the interstitium of thesupraspinatus tendon humeral insertion with questionable articular surfaceextension. The remaining rotator cuff tendons are unremarkable. Minimalfluid surrounds the biceps tendon within the sulcus with minimalmedialization of the proximal biceps tendon which appears to sublux intothe substance of the superior subscapularis tendon SOFT TISSUES:No muscle atrophy is identified. No soft tissue masses are appreciated. Minimal fluid is seen within thesubacromial/subdeltoid bursa. [facility], Radiant Results Inft User - 09/29/2020 2:27 PM CSTEXAM:MRI RIGHT SHOULDER WITHOUT CONTRASTCOMPARISON: Comparative chest radiograph 05/01/2015HISTORY:Shoulder pain, acute, persistent, xray and exam nonspecific TECHNIQUE AND FINDINGS:1.5T multiplanar multiweighted MR imaging of the right shoulder wasperformed without contrast.BONE AND JOINT:A heterogenous background bone marrow signal is noted. There is mild edemaat the level of the humeralhead greater tuberosity.Acromion morphology is type 2. An os acromiale is present with minimalsurrounding edema.No abnormality is seen at the level of the acromioclavicular joint. Thelabrum and biceps labral anchor are intact. LIGAMENTS AND TENDONS:There is hyperintense T2 signal seen within the interstitium of thesupraspinatus tendon humeral insertion with questionable articular surfaceextension. The remaining rotator cuff tendons are unremarkable. Minimalfluid surrounds the biceps tendon within the sulcus with minimalmedialization of the proximal biceps tendon which appears to sublux intothe substance of the superior subscapularis tendonSOFT TISSUES:No muscle atrophy is identified. No soft tissue masses are appreciated. Minimal fluid is seen within thesubacromial/subdeltoid bursa.IMPRESSIONInterstitial tearing of the supraspinatus tendon with questionablearticular surface extension with underlying humeral head/greater tuberosityedema.Mild tenosynovitis of the biceps tendon with questionable intra-articularmedialization which may be seen with a biceps charissa lesion.Mild subacromial/subdeltoid bursitis. Preliminary Report Dictated by Resident: Susan Garcia, Manolo Nazaroi MD.,have reviewed this study and agree with the abovereport.[facility] Notes Date/Time Note Provider Source Piero Enriquez [facility]2025-09-16 00:00:00 Piero Enriquez [place] [address]-08-15 00:00:00 Piero Enriquez [facility]2025-07-02 00:00:00 Piero Enriquez [facility]2025-06-25 00:00:00 Peiro Zoe [place] [address]-06-13 10:28:44 Spoke with patient and relayed providers feedback and informed him about the requested letter sent via [employer]. Patient was grateful for the call and assistance from provider. No further action needed at this time. [facility] Nahid Zavala [place] [address]-06-13 09:14:31 Called patient, no answer. Left message with call back number. [place] [address]-06-13 08:23:14 Called patient, no answer. Left message letting him know that requested letter was sent via [employer] and that I had more feedback from provider. Percussion Instrument Repairer left clinic phone number for a call back. Will await call. [place] [address]-06-12 16:15:22 Please print letter out for pt with following: Patient’s CT sinus shows two dental abscesses that are causing maxillary sinus congestion and can lead to further complications such as facial/neck/orbital cellulitis/abscess. These need to be addressed ALEKSANDAR to prevent complications. Please also let pt know that this is all we can do and usually medical insurance does not cover dental procedures. Patient should see oral surgeon ALEKSANDAR & he may have to pay out of pocket for the sake of his health as these dental infections can lead to facial/eye/brain/chest infections & complications. [facility] [id number] 15:35:11 Spoke with patient and relayed providers feedback and he stated that when he has brought the issue to the dentist they minimize the issue or tell him that he can pay out of pocket because insurance would not cover. Patient wanted to see if provider could write a letter to his insurance explaining that it does affect his health and it is neccessary to have surgery. Call will be routed to provider for further advise. [facility] [id number] 09:13:16 Images from the original note were not included. Nurse called and left message for call back. Mellissa Lucia MD P [facility] Nurse CT shows mild sinus disease likely worsened by large cavities and abscess in upper teeth #7-8. Please see dentist ALEKSANDAR. Janae LovettScott [place] 468965-04-09 08:30:40 I attempted to contact the patient but there was no answer. I left a message that his insurance does not cover compound nasal rinses. Denice Freeman RNOhioHealth O'Bleness [id number] 11:39:07 Zuhair Hawthorne is a 40 year old male Patient needing PA for medication sent to [facility]. Please advise [phone] (home) [phone] (work) [facility]- PH: [phone] [facility] [id number] 16:13:07 Left VM that sedative had been placed and pt should have somebody drive him to have MRI completed. NICAL PROGRAM MANAGER Ruchi [facility]2025-03-03 15:33:13 We can try 2 of the lorazepam tablets to help with the symptoms. [facility]2025-03-03 11:29:04 Dr. Jones, please send sedative for pt to have for his MRI. [facility]2025-03-03 11:16:53 Zuhair Hawthorne is a 39 year old male Patient called and is requesting medication to help him stay calm for his upcoming MRI. He states he is claustrophobic and needs something so he can stay calm. Please advise, MRI is on Tuesday. Please send to [facility]: [address] [address] NICAL PROGRAM MANAGER Aidee DunbarOhioHealth O'Bleness [id number] 14:58:41* [address] & [facility] 2024-12-25 14:58:41* Raffi Luque DDS - 12/25/2024 2:21 PM TECHNICAL PROGRAM MANAGER Exam - Adult SUBJECTIVE: Zuhair Hawthorne, 39 year old male, presents alone for NPx exam. Straight Knife Cutter Machine: No Chief Complaint Patient presents with Dental Diagnostic Exam BRANDIE OBJECTIVE: RMHx: Yes Vitals: Vitals: 12/25/24 1416 BP: 117/79 Pulse: 69 ASSESSMENT: EOE/IOE/Oral Cancer Screen: WNL [place]: Good Fluoride exposure: toothpaste Home Care: Toothbrush 2 x per day, Floss 0 x per day Plaque: Localized Slight Calculus: Localized Slight Bone Loss: None PSR: Yes Periodontal Screening 0 0 0 1 0 0 OHI & Nutrition counseling provided, discussed: Increase flossing to once per day, Stressed importance of routine cleanings Class I R & L. Overbite 25%. Overjet 1mm. TMJ: WNL Caries Risk Assessment: Moderate No data to display Dx: K04.5 Asymptomatic periapical periodontitis (primary encounter diagnosis) K08.3 Retained tooth root K02.63 Dental caries on smooth surface penetrating into pulp K02.62 Dental caries on smooth surface penetrating into dentin Dx Details (Clinical Decision Making): localized slight gingivitis PLAN:Informed Consent/PARQ (Procedure, Alternatives, Risks, Questions): Discussed exam findings and treatment needs, questions answered. Patient confirms informed consent using PARQ, verbalizes understanding of exam findings and treatment plan. Dental procedures in this visit D5899 - UNS REMOVABLE PROSTHODONTIC PROCEDURE REPORT (Completed) Service provider: Raffi Luque DDS Billing provider: Raffi Luque DDS D0210 - INTRAORAL - COMP SERIES OF RADIOGRAPHIC IMAGES (Completed) Service provider: Raffi Luque DDS Billing provider: Raffi Luque DDS D0150 - COMP ORAL EVALUATION - NEW/ESTABLISHED PATIENT (Completed) Service provider: Raffi Luque DDS [place] provider: Raffi Luque DDS D0330 - PANORAMIC RADIOGRAPHIC IMAGE (Completed) Service provider: Raffi Luque DDS Billing provider: Raffi Luque DDS Completion [id number] - UNS REMOVABLE PROSTHODONTIC PROCEDURE REPORT (Completed) Consult RPD/ Time-out completed: Yes Package Sterilized on: 214[address] AM Cycle: SecondIn: A2/B3/C4: B3 By: DB Referrals: No orders of the following type(s) were placed in this encounter: Referral. Rx: No orders of the defined types were placed in this encounter. Behavior: DA: nevaeh de la torre ELIGIBILITY EXPIRESPOE due: Time: 45 min HYG due: Time: 45 min GEN NV: Time: 60 min EXT #14-15 ENDO NV: Time: 75 min --- PERIO NV: Time: 60 min --- PATH NV: Time: 30 min --- PROS NV: Time: 30 min --- Consult RPD/ [place] [address] [facility] & [id number] 14:58:41Upcoming Encounters Scheduled Orders Name Type Priority Associated Diagnoses Order Schedule 2 B RESIN-BASED COMPOSITE - ONE SURFACE POSTERIOR Dental Procedures Routine 1 Occurrence s starting 12/25/2024 5 MO RESIN-BASED COMPOSITE - TWO SURFACES POSTERIOR Dental Procedures Routine 1 Occurrenc es starting 12/25/2024 6 DFL RESIN-BASED COMPOSITE THREE SURFACES ANTERIOR Dental Procedures Routine 1 Occurrence s starting 12/25/2024 8 DIFL RESIN-BASED COMPOSITE-4/> SURFACES ANTERIOR Dental Procedures Routine 1 Occurrence s starting 12/25/2024 9 DIFL RESIN-BASED COMPOSITE-4/> SURFACES ANTERIOR Dental Procedures Routine 1 Occurrence s starting 12/25/2024 30 STANLEY RESIN-BASED COMPOSITE - TWO SURFACES POSTERIOR Dental Procedures Routine 1 Occurrenc es starting 12/25/2024 14 EXTRACTION ERUPTED TOOTH OR EXPOSED ROOT Dental Procedures Routine 1 Occurr ences starting 12/25/2024 15 EXTRACTION ERUPTED TOOTH OR EXPOSED ROOT Dental Procedures Routine 1 Occurr ences starting 12/25/2024 3 EXTRACTION ERUPTED TOOTH OR EXPOSED ROOT Dental Procedures Routine 1 Occurr ences starting 12/25/2024 7 EXTRACTION ERUPTED TOOTH OR EXPOSED ROOT Dental Procedures Routine 1 Occurr ences starting 12/25/2024 PROPHYLAXIS - ADULT Dental Procedures Routine 1 Occurrences starting 12/25/2024 NUTRITIONAL COUNSELING CONTROL OF DENTAL DISEASE Dental Procedures Routine 1 Occurrences starting 12/25/2024 ORAL HYGIENE INSTRUCTIONS Dental Procedures Routine 1 Occurrences starting 12/25/2024 Health Maintenance Due Date Last Done Comments Dental Prophy 1987 Diabetes Screening 1987 Hepatitis C Screening 1987 Lipid Screening 1987 Tobacco Screening 1987 HIV Screening 2002 Imm-DTaP/Tdap/Td (1 - Tdap) 2006 Imm-Hepatitis B (1 of 3 - 19+ 3-dose series) 6 [id number] ( - season) 2024 Imm-Influenza (#1) 2024 Depression Annual Screen 11/07/2024 Hypertension Screening (#1) 12/25/2027 Alcohol and Drug Screen Completed 12/25/[address]2025-02-18 14:58:41 Diagnosis Asymptomatic periapical mary ann odontitis - Primary Retained tooth root Retained dental root Dental caries on smooth surface penetrating into pulp Dental caries of smooth surface Dental caries on smooth surface penetrating into dentin Dental caries of smooth surface [address]2025-02-18 14:00:00 Consult RPD/ [address]2025-02-11 09:30:00 Images from the original note were not included. Venipuncture collection performed by clean technique on the right anticubitus. Total of 1 attempts were made. Slight pressure and a bandage/dressing were applied to the site(s). The patient experienced no complications. The following specimens were processed according to instructions and sent to [facility] laboratories per lab order on 12/18/2024 : LT BLUE SST 1 RED LAV PPT DK GREEN (LiHep) DK GREEN (SodH) BARRETO DK BLUE (K2) DK BLUE (S) ACD Blood Culture NIPT/NTD Pt was sent home with sterile collection cup. Pt stated he will return whe he was able to get the fluid Debi Haas 12/18/2024 9:23 AM NICAL PROGRAM MANAGER [facility] [id number] 00:00:00 [facility]2024-11-06 00:00:00 [facility]2024-10-09 00:00:00 [facility]2024-09-03 00:00:00 [facility]2024-06-11 00:00:00 [facility]
[2025-07-24] MEDS ORDERED: METOCLOPRAMIDE 10 MG/2mL INJ ONE (22:52)
[2025-07-24] MEDS ORDERED: NA CHLORIDE 0.9% 1,000 ML ONE (22:53)
[2025-07-24] MEDS ORDERED: ACETAMINOPHEN 500 MG TAB ONE (22:53)
[2025-07-24] MEDS ORDERED: DIPHENHYDRAMINE 50 MG/ML VIAL ONE (22:53)
[2025-07-24] MEDS ORDERED: KETOROLAC 30 MG/ML INJ ONE (22:53)
[2025-07-24 23:22] LABS: Absolute Lymphocytes (CBC) 3.1 K/uL (0.7-4.9); Hematocrit 41.3 % (39.6-49.0); Hemoglobin 14.8 g/dL (13.6-17.9); MCH 30.6 pg (27.0-35.0); MCHC 36.0 g/dL (32.0-36.0); MCV 85.1 fL (80-100); MPV 7.1 fL (7.6-11.3); Nucleated RBC Absolute Count 0.1 (0-0); Nucleated Red Blood Cells % 0.8 % (0-0); RBC Red Blood Cell Count 4.85 M/uL (4.33-5.43); White Blood Count 7.60 thou/uL (4.3-10.9)
[2025-07-24 23:33] LABS: ALT/SGPT 42 U/L (16-61); AST/SGOT 21 U/L (15-37); Albumin 3.8 g/dL (3.4-5.0); Albumin/Globulin Ratio 1.1 (1.1-1.8); Alkaline Phosphatase 79 U/L (45-117); Anion Gap 8.9 mEq/L (5.0-15.0); BUN Blood Urea Nitrogen 10 mg/dL (7-18); C-Reactive Protein 3.92 mg/L (<3.00); Globulin 3.4 g/dL (2.3-3.5); Glucose Level 99 mg/dL (74-106); Potassium 3.9 mEq/L (3.5-5.1)
[2025-07-25] MEDS ORDERED: FENTANYL CITR 100 MCG/2 ML ONE (00:13)
[2025-07-25] MEDS ORDERED: ONDANSETRON 4 MG/2 ML VIAL ONE (00:13)
--- NOTE | 2025-07-25 02:25 | ER ---
Nurse's Notes [facility] Name: Zuhair Hawthorne Age: 40 yrs Sex: Male : 1985 Arrival Date: 07/24/2025 Time: 22:24 Bed 2 Private MD: Diagnosis: Headache;Acute pansinusitis Presentation: 07/24 22:40 Chief complaint: Patient states: TEMPORAL HEADACHE FOR 9 DAYS. INTERMITTENT PAIN. DID j7 TELEHEALTH AND PRESCRIBED DICLOFENAC, GABAPENTIN, AND TRAZADONE. Coronavirus screen: At this time, the client does not indicate any symptoms associated with coronavirus-19. Ebola Screen: No symptoms or risks identified at this time. Initial Sepsis Screen: Does the patient meet any 2 criteria? No. Patient's initial sepsis screen is negative. Does the patient have a suspected source of infection? No. Patient's initial sepsis screen is negative. Risk Assessment: Do you want to hurt yourself or someone else? Patient reports no desire to harm self or others. 22:40 Method Of Arrival: Ambulatory [facility] 22:40 Acuity: BRIE 3 jj7 Triage Assessment: 22:40 Headache History: The patient has had previous headaches and this one is similar to jj7 previous episodes, and this one is more severe than previous episodes. General: Appears in no apparent distress. comfortable, Behavior is calm, cooperative, appropriate for age. Pain: Complains of pain in left temporal area and left moravian Pain currently is 6 out of 10 on a pain scale. at worst was 10 out of 10 on a pain scale. Neuro: Level of Consciousness is awake, alert, obeys commands, Oriented to person, place, time, situation, Appropriate for age Reports headache in left. Historical: - Allergies: 22:52 Codeine (Hives, rash); jj7 - PMHx: 22:52 GERD; Hyperlipidemia; Hypertension; Migraines; jj7 - PSHx: 22:52 knee sx (om); Vasectomy; jj7 - Immunization history:: Adult Immunizations not up to date. - Infectious Disease History:: Denies. - Social history:: Smoking status: Patient denies any tobacco usage or history of. Patient/guardian denies using alcohol, street drugs, IV drugs. - Family history:: not pertinent. Screenin:02 [facility] ED Fall Risk Assessment (Adult) History of falling in the last 3 months, vc1 including since admission No falls in past 3 months (0 pts) Confusion or Disorientation No (0 pts) Intoxicated or Sedated No (0 pts) Impaired Gait No (0 pts) Mobility Assist Device Used No (0 pt) Altered Elimination No (0 pt) Score/Fall Risk Level 0 - 2 = Low Risk Oriented to surroundings, Maintained a safe environment, Educated pt \T\ family on fall prevention, incl call for assistance when getting out of bed, Assessed \T\ reinforced patient's understanding of fall precautions, Hourly rounding (assess needs \T\ fall precautionary measures) done. Abuse screen: Denies threats or abuse. Nutritional screening: No deficits noted. Tuberculosis screening: No symptoms or risk factors identified. Assessment: 23:00 General: Appears in no apparent distress. uncomfortable, Behavior is calm, cooperative, bm8 appropriate for age. Pain: Complains of pain in left moravian and left temporal area Pain currently is 9 out of 10 on a pain scale. Quality of pain is described as aching, crampy. Neuro: Level of Consciousness is awake, alert, obeys commands, Oriented to person, place, time, situation, Appropriate for age [employer] Reeler are equal bilaterally Moves all extremities. Full function Gait is steady, Speech is normal, Facial symmetry appears normal, Pupils are PERRLA, Pupil Size: 4mm Intact Reports headache in left temporal area. Cardiovascular: Capillary refill < 3 seconds in bilateral fingers Patient's skin is warm and dry. Respiratory: Airway is patent Respiratory effort is even, unlabored, Respiratory pattern is regular, symmetrical. GI: No deficits noted. No signs and/or symptoms were reported involving the gastrointestinal system. : No deficits noted. No signs and/or symptoms were reported regarding the genitourinary system. EENT: Reports nasal congestion. Derm: No signs and/or symptoms reported regarding the dermatologic system. Musculoskeletal: No signs and/or symptoms reported regarding the musculoskeletal system. 23:55 Reassessment: Patient appears in no apparent distress at this time. No changes from vc1 previously documented assessment. Patient and/or family updated on plan of care and expected duration. Pain level reassessed. Patient is alert, oriented x 3, equal unlabored respirations, skin warm/dry/pink. 07/25 00:06 Pain: Pain currently is 6 out of 10 on a pain scale. bm8 01:34 Reassessment: Patient appears in no apparent distress at this time. Patient and/or bm8 family updated on plan of care and expected duration. Pain level reassessed. Patient is alert, oriented x 3, equal unlabored respirations, skin warm/dry/pink. pt is resting with eyes closed breathing is even unlabored with symmetrical rise and fall of chest, NAD at this time. 02:37 Reassessment: No changes from previously documented assessment. Patient and/or family cc6 updated on plan of care and expected duration. Pain level reassessed. Patient is alert, oriented x 3, equal unlabored respirations, skin warm/dry/pink. Vital Signs: 07/24 22:40 BP 126 / 87; Pulse 78; Resp 18; Temp 97.6; Pulse Ox 98% ; Weight 97.52 kg; Height 5 ft. 7 10 in. ; Pain 6/10; 23:00 BP 133 / 93; Pulse 85; Resp 18; Pulse Ox 99% ; vc1 23:30 BP 120 / 80; Pulse 75; Resp 18; Pulse Ox 96% ; vc1 18 00:06 BP 109 / 79; Pulse 71; Resp 17; Temp 97.6; Pulse Ox 100% on 2 lpm NC; Pain 6/10; bm8 01:33 BP 104 / 64; Pulse 64; Resp 17; Temp 97.6; Pulse Ox 100% ; Pain 0/10; bm8 02:36 BP 101 / 84; Pulse 61; Resp 17; Pulse Ox 99% on 2 lpm NC; cc6 07/24 22:40 Body Mass Index 30.85 (97.52 kg, 177.8 cm) [facility] 07/24 22:40 Pain Scale: Adult 7 07/25 00:06 Pain Scale: Adult bm8 01:33 Pain Scale: Adult bm8 Nnamdi Coma Score: 07/24 23:00 Eye Response: spontaneous(4). Motor Response: obeys commands(6). Verbal Response: bm8 oriented(5). Total: 15. 23:01 Eye Response: spontaneous(4). Motor Response: obeys commands(6). Verbal Response: lani oriented(5). Total: 15. 07/25 00:06 Eye Response: spontaneous(4). Motor Response: obeys commands(6). Verbal Response: bm8 oriented(5). Total: 15. 01:33 Eye Response: spontaneous(4). Motor Response: obeys commands(6). Verbal Response: bm8 oriented(5). Total: 15. ED Course: 07/24 22:26 Patient arrived in ED. mr 22:31 Yossi Ojeda MD is Attending Physician. lani 22:40 Arm band placed on right wrist. Patient placed in an exam room, on a stretcher. jj7 22:51 Triage completed. jj7 23:00 Timur Charles, RN is Primary Nurse. bm8 23:00 Patient has correct armband on for positive identification. Placed in gown. Bed in low bm8 position. Call light in reach. Side rails up X 1. Adult w/ patient. Client placed on continuous cardiac and pulse oximetry monitoring. NIBP monitoring applied. Pulse ox on. NIBP on. Door closed. Noise minimized. Warm blanket given. Verbal reassurance given. Head of bed elevated. 23:00 No provider procedures requiring assistance completed. Initial lab(s) drawn, by tnnelson sent to lab. Inserted saline lock: 18 gauge in right forearm, using aseptic technique. Blood collected. Flushed with 10 mL NS. Patient maintains SpO2 saturation greater than 95% on room air. 07/25 00:04 CT Head Angio In Process Unspecified. EDMS 00:04 CT Neck Angio In Process Unspecified. EDMS 00:05 CT Head Brain wo Cont In Process Unspecified. EDMS 02:23 Evan Prajapati MD is Referral Physician. [facility] 02:23 Gely Dunaway MD is Referral Physician. [facility] 02:54 Provided Education on: educated on need for follow up. cc6 02:54 IV discontinued, intact, bleeding controlled, No redness/swelling at site. Pressure cc6 dressing applied. Administered Medications: 07/24 22:56 Drug: Tylenol 1000 mg PO once Route: PO; 8 07/25 00:08 Follow up: Response: No adverse reaction [facility] 07/24 23:03 Drug: NS 0.9% IV 1000 ml IV at 1000 ml once; to be given as a bolus over 60 minutes bm8 Route: IV; Rate: 1000 ml; Site: right forearm; 07/25 00:05 Follow up: Response: No adverse reaction; IV Status: Completed infusion 8 07/24 23:03 Drug: diphenhydrAMINE IVP 50 mg IVP once Route: IVP; Site: right forearm; bm8 07/25 00:05 Follow up: Response: No adverse reaction 8 07/24 23:03 Drug: Ketorolac IVP 30 mg IVP once Route: IVP; Site: right forearm; bm8 07/25 00:05 Follow up: Response: No adverse reaction 8 07/24 23:03 Drug: metoCLOPramide IVP 10 mg IVP once; over 1 to 2 minutes Route: IVP; Site: right bm8 forearm; 07/25 00:04 Follow up: Response: No adverse reaction bm8 00:19 Drug: fentaNYL (PF) IVP 50 mcg IVP once Route: IVP; Site: right forearm; bm8 01:35 Follow up: Response: No adverse reaction bm8 00:19 Drug: Ondansetron IVP 4 mg IVP once; over 2 minutes Route: IVP; Site: right forearm; bm8 01:34 Follow up: Response: No adverse reaction bm8 02:35 Drug: Rocephin IV 2 grams IV at per protocol once; Given slow IV push per pharmarcy cc6 instructions Route: IV; Rate: per protocol; Site: right wrist; 02:40 Follow up: IV Status: Completed infusion; IV Intake: 10ml cc6 02:35 Drug: Amoxicillin-Clavulanate PO 875 mg PO once Route: PO; cc6 02:54 Follow up: Response: No adverse reaction cc6 Medication: 07/24 23:02 VIS not applicable for this client. vc1 Intake: 07/25 02:40 IV: 10ml; Total: 10ml. cc6 Outcome: 02:24 Discharge ordered by . lani 02:55 Discharged to home ambulatory, cc6 02:55 Condition: stable 02:55 Discharge instructions given to patient, Instructed on discharge instructions, follow up and referral plans. medication usage, Demonstrated understanding of instructions, follow-up care, medications, Prescriptions given X 4, 02:57 Patient left the ED. cc6 Signatures: Dispatcher [employer] EDYossi Villalobos MD MD cha Rivera, Mary, Reg Reg mr Nancy Lou RN RN vc1 Mello Garza RN RN jj7 Timur Charles RN RN bm8 Shadia Appiah, RN RN cc6 Corrections: (The following items were deleted from the chart) 00:08 00:07 Acetaminophen PO 1000 mg PO bm8 bm8
--- NOTE | 2025-07-25 02:25 | EDPHYS ---
Physician Documentation [facility] Name: Zuhair Hawthorne Age: 40 yrs Sex: Male : 1985 Arrival Date: 07/24/2025 Time: 22:24 Bed 2 Private MD: RHONDA Physician Yossi Ojeda HPI: 07/24 22:58 This 40 yrs old Male presents to ER via Ambulatory with complaints of lani Headache. 22:58 The patient complains of pain to the forehead and left faith. The patient describes lani the headache as aching, waxing and waning. Onset: The symptoms/episode began/occurred 9 day(s) ago. Associated signs and symptoms: The patient has no apparent associated signs or symptoms. Severity of symptoms: At its worst the pain was moderate, in the emergency department the pain is unchanged. Headache History: Denies prior headaches. The symptoms are alleviated by nothing. the symptoms are aggravated by nothing. The patient has not experienced similar symptoms in the past. Historical: - Allergies: 22:52 Codeine (Hives, rash); jj7 - PMHx: 22:52 GERD; Hyperlipidemia; Hypertension; Migraines; jj7 - PSHx: 22:52 knee sx (om); Vasectomy; jj7 - Immunization history:: Adult Immunizations not up to date. - Infectious Disease History:: Denies. - Social history:: Smoking status: Patient denies any tobacco usage or history of. Patient/guardian denies using alcohol, street drugs, IV drugs. - Family history:: not pertinent. ROS: 22:58 Constitutional: Negative for fever, chills, and weight loss, Eyes: Negative for injury, lani pain, redness, and discharge, ENT: Negative for injury, pain, and discharge, Neck: Negative for injury, pain, and swelling, Cardiovascular: Negative for chest pain, palpitations, and edema, Respiratory: Negative for shortness of breath, cough, wheezing, and pleuritic chest pain, Abdomen/GI: Negative for abdominal pain, nausea, vomiting, diarrhea, and constipation, Back: Negative for injury and pain, : Negative for injury, bleeding, discharge, and swelling, MS/Extremity: Negative for injury and deformity, Skin: Negative for injury, rash, and discoloration, Psych: Negative for depression, anxiety, suicide ideation, homicidal ideation, and hallucinations, Allergy/Immunology: Negative for hives, rash, and allergies, Endocrine: Negative for neck swelling, polydipsia, polyuria, polyphagia, and marked weight changes, Hematologic/Lymphatic: Negative for swollen nodes, abnormal bleeding, and unusual bruising, 22:58 Neuro: Positive for dizziness, headache, of the left faith and left temporal area, Exam: 22:58 Constitutional: This is a well developed, well nourished patient who is awake, alert, lani and in no acute distress. Head/Face: Normocephalic, atraumatic. Eyes: Pupils equal round and reactive to light, extra-ocular motions intact. Lids and lashes normal. Conjunctiva and sclera are non-icteric and not injected. Cornea within normal limits. Periorbital areas with no swelling, redness, or edema. ENT: Nares patent. No nasal discharge, no septal abnormalities noted. Tympanic membranes are normal and external auditory canals are clear. Oropharynx with no redness, swelling, or masses, exudates, or evidence of obstruction, uvula midline. Mucous membranes moist. Neck: Trachea midline, no thyromegaly or masses palpated, and no cervical lymphadenopathy. Supple, full range of motion without nuchal rigidity, or vertebral point tenderness. No Meningismus. Chest/axilla: Normal chest wall appearance and motion. Nontender with no deformity. No lesions are appreciated. Cardiovascular: Regular rate and rhythm with a normal S1 and S2. No gallops, murmurs, or rubs. Normal PMI, no JVD. No pulse deficits. Respiratory: Lungs have equal breath sounds bilaterally, clear to auscultation and percussion. No rales, rhonchi or wheezes noted. No increased work of breathing, no retractions or nasal flaring. Abdomen/GI: Soft, non-tender, with normal bowel sounds. No distension or tympany. No guarding or rebound. No evidence of tenderness throughout. Back: No spinal tenderness. No costovertebral tenderness. Full range of motion. Male : Normal genitalia with no discharge or lesions. Skin: Warm, dry with normal turgor. Normal color with no rashes, no lesions, and no evidence of cellulitis. MS/ Extremity: Pulses equal, no cyanosis. Neurovascular intact. Full, normal range of motion., bilateral aka Neuro: Awake and alert, GCS 15, oriented to person, place, time, and situation. Cranial nerves II-XII grossly intact. Motor strength 5/5 in all extremities. Sensory grossly intact. Cerebellar exam normal. Normal gait. Psych: Awake, alert, with orientation to person, place and time. Behavior, mood, and affect are within normal limits. 22:58 Neck: External neck: is normal, no acute changes, C-spine: appears grossly normal, no acute changes, Thyroid: appears normal, Trachea: is midline with no obvious abnormalities, ROM/movement: is normal, no acute changes, Lymph nodes: no appreciated lymphadenopathy, Vital Signs: 22:40 BP 126 / 87; Pulse 78; Resp 18; Temp 97.6; Pulse Ox 98% ; Weight 97.52 kg; Height 5 ft. 7 10 in. ; Pain 6/10; 23:00 BP 133 / 93; Pulse 85; Resp 18; Pulse Ox 99% ; vc1 23:30 BP 120 / 80; Pulse 75; Resp 18; Pulse Ox 96% ; vc1 18 00:06 BP 109 / 79; Pulse 71; Resp 17; Temp 97.6; Pulse Ox 100% on 2 lpm NC; Pain 6/10; bm8 01:33 BP 104 / 64; Pulse 64; Resp 17; Temp 97.6; Pulse Ox 100% ; Pain 0/10; bm8 02:36 BP 101 / 84; Pulse 61; Resp 17; Pulse Ox 99% on 2 lpm NC; cc6 07/24 22:40 Body Mass Index 30.85 (97.52 kg, 177.8 cm) [facility] 07/24 22:40 Pain Scale: Adult [facility] 07/25 00:06 Pain Scale: Adult bm8 01:33 Pain Scale: Adult bm8 Nnamdi Coma Score: 07/24 23:00 Eye Response: spontaneous(4). Motor Response: obeys commands(6). Verbal Response: bm8 oriented(5). Total: 15. 23:01 Eye Response: spontaneous(4). Motor Response: obeys commands(6). Verbal Response: lani oriented(5). Total: 15. 07/25 00:06 Eye Response: spontaneous(4). Motor Response: obeys commands(6). Verbal Response: bm8 oriented(5). Total: 15. 01:33 Eye Response: spontaneous(4). Motor Response: obeys commands(6). Verbal Response: bm8 oriented(5). Total: 15. MDM: 07/24 22:31 Medical Screening Exam initiated lani 23:01 Differential diagnosis: cerebral abscess, cervical epidural bleed, cervical perispinal lani abcess, cluster headache, cerebral vascular accident, epidural hematoma, hypoglycemia, migraine, neoplasm, subarachnoid bleed, subdural hematoma, temporal arteritis, trigeminal neuralgia, uremia, vasomotor headache. Data reviewed: vital signs, nurses notes, lab test result(s), radiologic studies, CT scan. Consideration of Admission/Observation Escalation of care including admission/observation considered. I considered the following discharge prescriptions or medication management in the emergency department Medications were administered in the Emergency Department. See MAR. Test considered but Not performed: MRI: no mri brain. Historians other than the Patient: Spouse/Significant Other: well informed. Counseling: I had a detailed discussion with the patient and/or guardian regarding the historical points, exam findings, and any diagnostic results supporting the discharge/admit diagnosis, lab results, radiology results, the need for outpatient follow up, for definitive care, 07/24 22:56 Order name: CBC with Diff; Complete Time: 00:11 [facility] 07/24 22:56 Order name: CMP; Complete Time: 00:11 [facility] 07/24 22:56 Order name: CRP; Complete Time: 00:11 [facility] 07/24 22:56 Order name: CT Head Angio [facility] 07/24 22:56 Order name: CT Neck Angio [facility] 07/24 22:56 Order name: CT Head Brain wo Cont [facility] 07/24 22:56 Order name: Oxygen: 2 lit; Complete Time: 00:09 [facility] Administered Medications: 22:56 Drug: Tylenol 1000 mg PO once Route: PO; 07/25 00:08 Follow up: Response: No adverse reaction [facility] 07/24 23:03 Drug: NS 0.9% IV 1000 ml IV at 1000 ml once; to be given as a bolus over 60 minutes [facility] Route: IV; Rate: 1000 ml; Site: right forearm; 07/25 00:05 Follow up: Response: No adverse reaction; IV Status: Completed infusion [facility] 07/24 23:03 Drug: diphenhydrAMINE IVP 50 mg IVP once Route: IVP; Site: right forearm; bm8 07/25 00:05 Follow up: Response: No adverse reaction bm8 07/24 23:03 Drug: Ketorolac IVP 30 mg IVP once Route: IVP; Site: right forearm; bm8 07/25 00:05 Follow up: Response: No adverse reaction bm8 07/24 23:03 Drug: metoCLOPramide IVP 10 mg IVP once; over 1 to 2 minutes Route: IVP; Site: right bm8 forearm; 07/25 00:04 Follow up: Response: No adverse reaction bm8 00:19 Drug: fentaNYL (PF) IVP 50 mcg IVP once Route: IVP; Site: right forearm; bm8 01:35 Follow up: Response: No adverse reaction bm8 00:19 Drug: Ondansetron IVP 4 mg IVP once; over 2 minutes Route: IVP; Site: right forearm; bm8 01:34 Follow up: Response: No adverse reaction bm8 02:35 Drug: Rocephin IV 2 grams IV at per protocol once; Given slow IV push per pharmarcy cc6 instructions Route: IV; Rate: per protocol; Site: right wrist; 02:40 Follow up: IV Status: Completed infusion; IV Intake: 10ml cc6 02:35 Drug: Amoxicillin-Clavulanate PO 875 mg PO once Route: PO; cc6 02:54 Follow up: Response: No adverse reaction cc6 Disposition Summary: 07/25/25 02:24 Discharge Ordered Notes: Location: Home lani Problem: new lani Symptoms: have improved lani Condition: Stable lani Diagnosis - Headache lani - Acute pansinusitis lani Followup: lani - With: Private Physician - When: 2 - 3 days - Reason: Recheck today's complaints, Continuance of care, Re-evaluation by your physician Followup: lani - With: Evan Prajapati MD - When: 2 - 3 days - Reason: Recheck today's complaints, Re-evaluation by your physician Followup: lani - With: Gely Dunaway MD - When: 5 - 6 days - Reason: Recheck today's complaints, Re-evaluation by your physician Discharge Instructions: - Discharge Summary Sheet lani - General Headache Without Cause lani - Migraine Headache lani - Sinusitis, Adult lani - Sinusitis, Adult, [id number] lani - Migraine Headache, [id number] lani - General Headache Without Cause, [id number] [facility] Forms: - Medication Reconciliation Form lani - Antibiotic Education lani - Prescription Opioid Use lani - Patient Portal Instructions [facility] - Leadership Thank You Letter [facility] Prescriptions: - ondansetron 4 mg Oral Tablet,disintegrating - take 1 tablet ORAL route every 6 hours as needed for nausea and vomiting; 20 lani tablet; Refills: 0, Product Selection Permitted - Augmentin 875-125 mg Oral tablet - take 1 tablet ORAL route every 12 hours for 14 days; 28 tablet; Refills: 0, [facility] Product Selection Permitted - Tramadol 50 mg Oral tablet - take 1 tablet ORAL route every 6 hours as needed; 20 tablet; Refills: 0, [facility] Product Selection Permitted - Medrol (Smooth) 4 mg Oral Tablets, Dose Pack - take 1 tablet ORAL route as directed - follow package instructions; 1 packet; [facility] Refills: 0, Product Selection Permitted Signatures: Dispatcher [employer] EDMS Yossi Ojeda MD MD cha Johnson, Juwairiyah RN RN jj7 Timur Charles RN RN bm8 Shadia Appiah, RN RN cc6 Corrections: (The following items were deleted from the chart) 07/24 22:56 22:56 Neck Angio+CT.RAD.BRZ ordered. EDMS EDMS 22:56 22:56 Head Brain Wo Cont+CT.RAD.BRZ ordered. EDMS EDMS
[2025-07-25] MEDS ORDERED: AMOX/K CLAV 875 MG TAB ONE (02:27)
[2025-07-25] MEDS ORDERED: CEFTRIAXONE 2000 MG/VIAL ONE (02:27)
[2025-07-25 03:45] VITALS: TEMP 97.6
[2025-07-25 03:52] VITALS: BP 101/84; O2SAT 99
--- NOTE | 2025-07-25 06:19 | RAD REPORT ---
EXAM: CT Head Without Intravenous Contrast CLINICAL HISTORY: HEADACHE TECHNIQUE: Axial computed tomography images of the head/brain without intravenous contrast. Sagittal and coronal reformatted images were created and reviewed. This CT exam was performed using one or more of the following dose reduction techniques: automated exposure control, adjustment of the mA and/or kV accor ding to patient size, and/or use of iterative reconstruction technique. COMPARISON: No relevant prior studies available. FINDINGS: Brain: Unremarkable. No hemorrhage. No significant white matter disease. No edema. Ventricles: Unremarkable. No ventriculomegaly. Bones/joints: Unremarkable. No acute fracture. Soft tissues: Unremarkable. Sinuses: Pansinus mucosal thickening most pronounced, moderate at the left greater than right ethmoid sinuses. Scattered air-fluid levels. Mastoid air cells: Unremarkable as visualized. No mastoid effusion. IMPRESSION: 1. No acute intracranial or extra-axial abnormality. 2. Pansinusitis. Electronically signed by: Tegan Aragon MD 07/25/2025 01:13 AM CDT Due to temporary technical issues with the [employer]ACS[employer] reporting system, reports are being contreras d by the in-house radiologist without review as a courtesy to ensure prompt reporting the interpreting radiologist is fully responsible for the content of the report. Transcribed Date/Time: 07/25/2025 6:19 AM
--- NOTE | 2025-07-25 06:22 | RAD REPORT ---
EXAM: CT Angiography Neck With Intravenous Contrast CLINICAL HISTORY: The patient is 40 years old and is Male; PAIN TECHNIQUE: Routine carotid CT angiography protocol was performed with intravenous contrast. NASCET cr iteria using the distal ICAs for comparison were used for evaluation of stenoses. Sagittal and coronal reformatted images were created and reviewed. This CT exam was performed using one or more of the following dose reduction techniques: automated exposure control, adjustment of the mA and/or kV according to patient size, and/or use of iterative reconstruction technique. MIP reconstructed jennifer ges were created and reviewed. COMPARISON: None. FINDINGS: VASCULATURE: Right common carotid artery: Unremarkable. No occlusion or significant stenosis. No dissection. Right internal carotid artery: Unremarkable. Extracranial segment is patent with no occlusion or sign ificant stenosis. No dissection. Right external carotid artery: Unremarkable. No occlusion. Right vertebral artery: Unremarkable. No occlusion or significant stenosis. No dissection. Left common carotid artery: Unremarkable. No occlusion or significant stenosis. No dissection. Left internal carotid artery: Unremarkable. Extracranial segment is patent with no occlusion or signi ficant stenosis. No dissection. Left external carotid artery: Unremarkable. No occlusion. Left vertebral artery: Unremarkable. No occlusion or significant stenosis. No dissection. NECK: Bones/joints: Unremarkable. No acute fracture. Soft tissues: Unremarkable. Lung apices: Clear. CAROTID STENOSIS REFERENCE USING NASCET CRITERIA: % ICA stenosis = (1 - narrowest ICA diameter/diameter of distal cervical ICA) x 100. Mild - <50% stenosis. Moderate - 50-69% stenosis. Severe - 70-94% stenosis. Near occlusion - 95-99% stenosis. Occluded - 100% stenosis. * A single impression for all exams can be found at the end of this report EXAM: CT Angiography Head With Intravenous Contrast CLINICAL HISTORY: The patient is 40 years old and is Male; PAIN TECHNIQUE: Axial computed tomographic angiography images of the head with intravenous contrast. Sagit viraj and coronal reformatted images were created and reviewed. This CT exam was performed using one or more of the following dose reduction techniques: automated exposure control, adjustment of the mA and/or kV according to patient size, and/or use of iterative reconstruction technique. MIP reconstructed images were created and reviewed. COMPARISON: No relevant prior studies available. FINDINGS: Right internal carotid artery: No acute findings. Intracranial segment is patent with no significant stenosis. No aneurysm. Right anterior cerebral artery: Unremarkable. No occlusion or significant stenosis. No aneurysm. Right middle cerebral artery: Unremarkable. No occlusion or significant stenosis. No aneurysm. Right posterior cerebral artery: Unremarkable. No occlusion or significant stenosis. No aneurysm. Right vertebral artery: Unremarkable as visualized. Left internal carotid artery: No acute findings. Intracranial segment is patent with no significant s tenosis. No aneurysm. Left anterior cerebral artery: Unremarkable. No occlusion or significant stenosis. No aneurysm. Left middle cerebral artery: Unremarkable. No occlusion or significant stenosis. No aneurysm. Left posterior cerebral artery: Unremarkable. No occlusion or significant stenosis. No aneurysm. Left vertebral artery: Unremarkable as visualized. Basilar artery: Unremarkable. No occlusion or significant stenosis. No aneurysm. Sinuses: Air-fluid levels in the maxillary sinuses. Near complete opacification of the ethmoid air cells. * A single impression for all exams can be found at the end of this report IMPRESSION: CTAngiography Neck With Intravenous Contrast: No significant stenosis. No dissection or occlusion. CTAngiography Head With Intravenous Contrast: No occlusion or significant stenosis. No aneurysm. Electronically signed by: Austyn Mendez MD 07/25/2025 01:25 AM CDT Due to temporary technical issues with the PACS/[employer] reporting system, reports are being contreras d by the in-house radiologist without review as a courtesy to ensure prompt reporting the interpreting radiologist is fully responsible for the content of the report. Transcribed Date/Time: 07/25/2025 6:22 AM
--- NOTE | 2025-07-25 06:31 | RAD REPORT ---
EXAM: CT Angiography Neck With Intravenous Contrast CLINICAL HISTORY: The patient is 40 years old and is Male; PAIN TECHNIQUE: Routine carotid CT angiography protocol was performed with intravenous contrast. NASCE T criteria using the distal ICAs for comparison were used for evaluation of stenoses. Sagittal and coronal reformatted images were created and reviewed. This CT exam was performed using one or m ore of the following dose reduction techniques: automated exposure control, adjustment of the mA and/or kV according to patient size, and/or use of iterative reconstruction technique. MIP reconstr ucted images were created and reviewed. COMPARISON: None. FINDINGS: VASCULATURE: Right common carotid artery: Unremarkable. No occlusion or significant stenosis. No dissectio n. Right internal carotid artery: Unremarkable. Extracranial segment is patent with no occlusion o r significant stenosis. No dissection. Right external carotid artery: Unremarkable. No occlusion. Right vertebral artery: Unremarkable. No occlusion or significant stenosis. No dissection. Left common carotid artery: Unremarkable. No occlusion or significant stenosis. No dissection . Left internal carotid artery: Unremarkable. Extracranial segment is patent with no occlusion or significant stenosis. No dissection. Left external carotid artery: Unremarkable. No occlusion. Left vertebral artery: Unremarkable. No occlusion or significant stenosis. No dissection. NECK: Bones/joints: Unremarkable. No acute fracture. Soft tissues: Unremarkable. Lung apices: Clear. CAROTID STENOSIS REFERENCE USING NASCET CRITERIA: % ICA stenosis = (1 - narrowest ICA diameter/diameter of distal cervical ICA) x 100. Mild - <50% stenosis. Moderate - 50-69% stenosis. Severe - 70-94% stenosis. Near occlusion - 95-99% stenosis. Occluded - 100% stenosis. * A single impression for all exams can be found at the end of this report EXAM: CT Angiography Head With Intravenous Contrast CLINICAL HISTORY: The patient is 40 years old and is Male; PAIN TECHNIQUE: Axial computed tomographic angiography images of the head with intravenous contrast. S agittal and coronal reformatted images were created and reviewed. This CT exam was performed using one or more of the following dose reduction techniques: automated exposure control, adjustmen t of the mA and/or kV according to patient size, and/or use of iterative reconstruction technique. MIP reconstructed images were created and reviewed. COMPARISON: No relevant prior studies available. FINDINGS: Right internal carotid artery: No acute findings. Intracranial segment is patent with no signif icant stenosis. No aneurysm. Right anterior cerebral artery: Unremarkable. No occlusion or significant stenosis. No aneury sm. Right middle cerebral artery: Unremarkable. No occlusion or significant stenosis. No aneurysm . Right posterior cerebral artery: Unremarkable. No occlusion or significant stenosis. No aneur ysm. Right vertebral artery: Unremarkable as visualized. Left internal carotid artery: No acute findings. Intracranial segment is patent with no signifi cant stenosis. No aneurysm. Left anterior cerebral artery: Unremarkable. No occlusion or significant stenosis. No aneurys m. Left middle cerebral artery: Unremarkable. No occlusion or significant stenosis. No aneurysm. Left posterior cerebral artery: Unremarkable. No occlusion or significant stenosis. No aneury sm. Left vertebral artery: Unremarkable as visualized. Basilar artery: Unremarkable. No occlusion or significant stenosis. No aneurysm. Sinuses: Air-fluid levels in the maxillary sinuses. Near complete opacification of the ethmoid air cells. * A single impression for all exams can be found at the end of this report IMPRESSION: CT Angiography Neck With Intravenous Contrast: No significant stenosis. No dissection or occlusion. CT Angiography Head With Intravenous Contrast: No occlusion or significant stenosis. No aneurysm. Electronically signed by: Austyn Mendez MD 07/25/2025 01:25 AM [facility] Due to temporary technical issues with the PACS/mii reporting system, reports are being contreras d by the in-house radiologist without review as a courtesy to ensure prompt reporting the interpreting radiologist is fully responsible for the content of the report. Transcribed Date/Time: 07/25/2025 6:31 AM
== END 2025-07-25 02:57 | disposition home or self-care (01) ==
LOC: ER 22:24
DX: J01.40 Acute pansinusitis, unspecified (principal)
CPT/HCPCS: 85025; 36415; 80053; 86140; 70450; 70496; 70498; 99284; Q9967; J2765; J1200; J3010; J2405; J0696; J7030